=== PATIENT | female | born 1970 | race Caucasian/White ===

== ENCOUNTER 2016-07-30 16:15 | Emergency (ER) | payer OTHER ==
[~2016-07-30] VITALS: Ht 162.6 cm; Wt 70.8 kg
[~2016-07-30 16:15] MED LIST: ALBUAER19 INH; ASPI81TA28 PO; CYCL10TA6 PO; HYDR-5688 PO; LSN40 PO; MULT-513 PO; ONDA4TAB10 SL; PRED-301 PO; PROM12.56 PO
[2016-07-30 16:24] VITALS: Ht 162.6 cm; Wt 70.8 kg
[2016-07-30] MEDS ORDERED: DiphenhydrAMINE HCL 50 MG/ML VIAL IV STA (17:02)
[2016-07-30] MEDS ORDERED: KETOROLAC TROMETHAMINE 30 MG/ML VIAL IV STA (17:02)
[2016-07-30] MEDS ORDERED: PROCHLORPERAZINE 5 MG/ML 2 ML VIAL IV STA (17:02)
--- NOTE | 2016-07-30 17:12 | EMERGENCY ROOM VISIT NOTE ---
History Report prepared by Debra: Marlene Frazier Under the Supervision of: Dr. Stephen Drake M.D. First contact with patient: 16:56 Chief Complaint: HEADACHE Stated Complaint: MIGRAINE W/BLURRED VISION, NAUSEA, AND STIFF NECK History of Present Illness The patient is a 46 year old female who presents to the Emergency Room with complaints of a constant headache since last night. The patient has a history of migraine headaches and states that she gets tension headaches almost daily. She started experiencing neck stiffness about a week ago. Last night she developed a headache that feels like her typical migraine headache. She notes pressure at her temples bilaterally. The patient is also experiencing blurred vision and nausea. She rates her current pain as an 8/10 in severity. She has been unable to sleep due to her symptoms. She tried taking Percocet and Midol for her symptoms without any relief. Typically she takes Flexeril at bedtime, but it did not help to alleviate this particular headache. Recently she was on prednisone and that seemed to help her tension headaches but her PCP took her off of it due to weight gain. Source of History: patient Onset: last night Position: head Symptom Intensity: 8/10 Quality: pressure Timing: constant Associated Symptoms: + nausea, + neck pain Note: Pt notes blurred vision. Review of Systems All systems have been listed, reviewed, and are negative other than those previously mentioned. Please see Additional Medical History Sheet. Past Medical & Surgical Medical Problems: (1) Asthma (2) Bronchitis (3) Gastrointestinal infection (4) Lupus (5) Migraines (6) PNA (pneumonia) Surgical Problems: (1) Fistula Family History FH: cancer Heart disease Social History Smoking Status: Never Smoker Alcohol Use: occasionally Drug Use: none Marital Status: Housing Status: lives with family Occupation Status: employed Current/Historical Medications Scheduled Aspirin (Aspirin Ec), 81 MG PO DAILY Cyclobenzaprine Hcl (Flexeril), 20 MG PO HS Hydroxychloroquine Sulfate (Hydroxychloroquine Sulfat), 200 MG PO HS Levothyroxine Sodium (Levothyroxine Sodium), 75 MCG PO DAILY Lisinopril (Zestril), 20 MG PO DAILY Multivitamins/Minerals (Mvi With Minerals), 1 TAB PO DAILY Mycophenolate Mofetil (Mycophenolate Mofetil), 1,000 MG PO BID Omeprazole (Prilosec), 20 MG PO BID Prednisone (Prednisone), 5 MG PO DAILY Scheduled PRN Albuterol Hfa (Ventolin Hfa), 2 PUFFS INH QID PRN for SOB/Wheezing Ondasetron Odt (Zofran Odt), 4 MG SL Q6H PRN for Nausea Oxycodone/Acetaminophen 5MG/325MG (Percocet 5MG/325MG), 1 TABLET PO Q4H PRN for Severe Pain Promethazine Hcl (Phenergan), 12.5 MG PO Q6H PRN for Nausea Ranitidine HCl (Ranitidine HCl), 150 MG PO BID PRN for Heartburn Allergies Coded Allergies: Molds & Smuts (Verified Allergy, Intermediate, allergy, 10/21/15) Latex1 -Allergic Contact Dermititis (Verified Allergy, Mild, `ALSO VINYL- BLISTERS, 10/21/15) Chocolate (Verified Allergy, Unknown, migraines, 10/21/15) Mushroom (Verified Adverse Reaction, Intermediate, n/v, 10/21/15) NSAIDs (Verified Adverse Reaction, Unknown, NO ASA,IBUPROFEN,NAPROXEN, TORADOL PER DR MATTHEWS 12/22/09, 10/21/15) Physical Exam Vital Signs Date Time Temp Pulse Resp B/P Pulse Ox O2 Delivery O2 Flow Rate FiO2 07/30/16 19:18 36.5 75 18 129/81 97 07/30/16 16:24 36.5 75 18 129/81 97 Room Air Physical Exam GENERAL: Patient awake, alert, oriented x 3. Patient follows commands. Patient does not appear toxic. Patient is adequately hydrated and well- nourished. SKIN: No erythema, pallor, cyanosis or rash HEENT: Normal head, pupils equal, reactive to light and accommodation. Right ear normal, scar of left TM. Oral cavity and posterior pharynx appear normal. Neck: Without adenopathy, no neck vein distention. Patient has slight tenderness over the superior aspect of the trapezius bilaterally. LUNGS: Clear to auscultation. No wheezes, no rales, no rhonchi. HEART: No murmurs. No gallops. No rubs ABDOMEN: No masses, no rebound, no hepatomegaly or splenomegaly. EXTREMITIES: No signs of trauma. No pedal or pretibial edema. No calf or thigh tenderness. NEUROLOGIC: Cranial nerves II-XII within normal limits. No gross motor sensory function deficits. Medical Decision & Procedures Medications Administered Medications (Trade) Dose Ordered Sig/Tayler Route Start Time Stop Time Status Last Admin Dose Admin Sodium Chloride (Nss 1000ml) 1,000 ml @ 1,000 mls/hr Q1H ONCE IV 07/30/16 17:15 07/30/16 18:14 DC 07/30/16 17:54 1,000 MLS/HR Ketorolac Tromethamine (Toradol Inj) 30 mg NOW STAT IV 07/30/16 17:02 07/30/16 17:04 DC 07/30/16 17:54 30 MG Diphenhydramine HCl (Benadryl Inj) 25 mg NOW STAT IV 07/30/16 17:02 07/30/16 17:04 DC 07/30/16 17:53 25 MG Prochlorperazine Edisylate (Compazine Inj) 10 mg NOW STAT IV 07/30/16 17:02 07/30/16 17:04 DC 07/30/16 17:54 10 MG ED Course 165: Past medical records reviewed. The patient was evaluated in room A2. A complete history and physical examination was performed. 1702: Compazine 10 mg IV, Benadryl 25 mg IV, Toradol 30 mg IV 1715: NSS 1000 ml @ 1000 mls/hr IV 1814: I reevaluated the patient. She has had some improvement and rates her current pain as a 5/10 in severity. She is experiencing a little bit of akathisia at this time. 1850: I reassessed the patient at this time. She is feeling better and resting comfortably. I discussed the results and treatment plan with the patient. I answered all pertaining questions that she had. She expressed understanding and verbalized agreement. The patient will be discharged home. Medical Decision Differential diagnoses includes migraine headache, tension headache, sinus headache, meningitis, encephalitis. Medication Reconciliation: I attest that I have personally reviewed the patient' s current medication list. Blood pressure Screening: Patient was found to have normal blood pressure on screening and does not require follow up. The patient is here with this tension headache. She was given above medications with almost complete relief. The patient would like to go home and get sleep which I have encouraged. The patient has no evidence of encephalitis , meningitis or other significant neurologic pathology. Impression Primary Impression: Tension headache Scribe Attestation The scribe's documentation has been prepared under my direction and personally reviewed by me in its entirety. I confirm that the note above accurately reflects all work, treatment, procedures, and medical decision making performed by me. Departure Information Dispostion Home / Self-Care Referrals Kiki Ferraro D.O. (PCP) Forms HOME CARE DOCUMENTATION FORM, IMPORTANT VISIT INFORMATION Patient Instructions My [facility] Additional Instructions Continue all of your current medications as prescribed. Follow-up with your family physician.
[2016-07-30] MEDS ORDERED: SODIUM CHLORIDE 0.9% 1000ML 1,000 ML IV ONE (17:15)
[2016-07-30] MEDS ORDERED: LISI-725 PO (17:27)
[2016-07-30 19:18] VITALS: BP 129/81; PULSE 75; TEMP 36.5; O2SAT 97
[2016-12-04] MEDS ORDERED: MYCO500T5 PO (15:56)
== END 2016-07-30 19:19 | disposition home or self-care (01) ==
LOC: C.EDB 16:17 → C.EDA 19:19
DX: G44.209 Tension-type headache, unspecified, not intractable (principal); J45.909 Unspecified asthma, uncomplicated; L88 Pyoderma gangrenosum; Z79.82 Long term (current) use of aspirin

== ENCOUNTER 2016-09-25 10:26 | Emergency (ER) | payer OTHER ==
[~2016-09-25] VITALS: Ht 162.6 cm; Wt 66.8 kg
[~2016-09-25 10:26] MED LIST changes: -ALBUAER19 INH; -HYDR-5688 PO; +LISI-725 PO; -LSN40 PO
[2016-09-25 10:29] VITALS: TEMP 36.3; Ht 162.6 cm; Wt 66.8 kg
[2016-09-25] MEDS ORDERED: KETOROLAC TROMETHAMINE 30 MG/ML VIAL IV STA (11:17)
[2016-09-25] MEDS ORDERED: DiphenhydrAMINE HCL 50 MG/ML VIAL IV STA (11:17)
[2016-09-25] MEDS ORDERED: SODIUM CHLORIDE 0.9% 1000ML 2,000 ML IV STA (11:17)
[2016-09-25] MEDS ORDERED: METOCLOPRAMIDE HCL INJ 5 MG/ML 2 ML VIAL IM STA (11:17)
[2016-09-25] MEDS ORDERED: METOCLOPRAMIDE HCL INJ 5 MG/ML 2 ML VIAL IV STA (11:23)
--- NOTE | 2016-09-25 11:55 | EMERGENCY ROOM VISIT NOTE ---
History Report prepared by Debra: Marlene Frazier Under the Supervision of: Dr. Parminder Oliva M.D. First contact with patient: 10:52 Chief Complaint: HEADACHE Stated Complaint: MIGRAINE, WEAKNESS History of Present Illness The patient is a 46 year old female who presents to the Emergency Room with complaints of a worsening headache since yesterday morning. She states that her headache began yesterday morning and gradually worsened throughout the day. It has been constant since around dinner time last night. Her pain is located in the front of her head on the left side. She rates her pain as a 9/10 in severity. She also reports heaviness in her extremities and states, "It feels like I have lead weights on my arms and legs." The patient is complaining of nausea and photophobia. She states that she is having trouble reading with her glasses. She tried taking a Vicodin for her symptoms and states that it did not help. The patient has a history of migraine headaches. She states that her symptoms with this headache are atypical because her headaches usually come on suddenly all at once instead of gradually worsening. The patient denies fevers, chills, dizziness, cough, congestion, vomiting, urinary symptoms. She is on medications for lupus and fibromyalgia. She has chronic pains but denies any new neck pain, back pain, or chest pain. She has been eating and drinking normally. Source of History: patient Onset: yesterday morning Position: head Symptom Intensity: 9/10 Timing: worsening Modifying Factors (Worsening): other (light) Associated Symptoms: + nausea, No fevers, No chills, No cough, No neck pain , No chest pain, No vomiting, No back pain, No urinary symptoms Note: Pt notes heaviness in extremities and some visual changes. Review of Systems See HPI for pertinent positives and negatives. A total of ten systems were reviewed and were otherwise negative. Past Medical & Surgical Medical Problems: (1) Asthma (2) Bronchitis (3) Gastrointestinal infection (4) Lupus (5) Migraines (6) PNA (pneumonia) Surgical Problems: (1) Fistula Family History FH: cancer Heart disease Social History Smoking Status: Never Smoker Alcohol Use: occasionally Drug Use: none Marital Status: Housing Status: lives with family Occupation Status: employed Current/Historical Medications Scheduled Aspirin (Aspirin Ec), 81 MG PO DAILY Cyclobenzaprine Hcl (Flexeril), 20 MG PO HS Hydroxychloroquine Sulfate (Hydroxychloroquine Sulfat), 200 MG PO HS Levothyroxine Sodium (Levothyroxine Sodium), 75 MCG PO DAILY Lisinopril (Zestril), 20 MG PO DAILY Multivitamins/Minerals (Mvi With Minerals), 1 TAB PO DAILY Mycophenolate Mofetil (Mycophenolate Mofetil), 1,000 MG PO BID Omeprazole (Prilosec), 20 MG PO BID Prednisone (Prednisone), 5 MG PO DAILY Scheduled PRN Albuterol Hfa (Ventolin Hfa), 2 PUFFS INH QID PRN for SOB/Wheezing Ondasetron Odt (Zofran Odt), 4 MG SL Q6H PRN for Nausea Oxycodone/Acetaminophen 5MG/325MG (Percocet 5MG/325MG), 1 TABLET PO Q4H PRN for Severe Pain Promethazine Hcl (Phenergan), 12.5 MG PO Q6H PRN for Nausea Ranitidine HCl (Ranitidine HCl), 150 MG PO BID PRN for Heartburn Allergies Coded Allergies: Molds & Smuts (Verified Allergy, Intermediate, allergy, 09/25/16) Latex1 -Allergic Contact Dermititis (Verified Allergy, Mild, `ALSO VINYL- BLISTERS, 09/25/16) Chocolate (Verified Allergy, Unknown, migraines, 09/25/16) Mushroom (Verified Adverse Reaction, Intermediate, n/v, 09/25/16) NSAIDs (Verified Adverse Reaction, Unknown, NO ASA,IBUPROFEN,NAPROXEN, TORADOL PER DR MATTHEWS 12/22/09, 09/25/16) Physical Exam Vital Signs Date Time Temp Pulse Resp B/P (MAP) Pulse Ox O2 Delivery O2 Flow Rate FiO2 09/25/16 13:44 95 18 136/70 100 Room Air 09/25/16 12:09 95 18 139/71 100 Room Air 09/25/16 11:36 89 20 161/104 99 Room Air 09/25/16 10:29 36.3 87 18 132/76 100 Room Air Physical Exam GENERAL: Awake, alert, well-appearing, in no distress HENT: Normocephalic, atraumatic. Oropharynx unremarkable. Dry mucous membranes. EYES: Normal conjunctiva. Sclera non-icteric. NECK: Supple. No nuchal rigidity. FROM. No JVD. RESPIRATORY: Clear to auscultation. CARDIAC: Regular rate, normal rhythm. Extremities warm and well perfused. Pulses equal. ABDOMEN: Soft, non-distended. No tenderness to palpation. No rebound or guarding. No masses. RECTAL: Deferred. MUSCULOSKELETAL: Chest examination reveals no tenderness. The back is symmetrical on inspection without obvious abnormality. There is no CVA tenderness to palpation. No joint edema. LOWER EXTREMITIES: Calves are equal size bilaterally and non-tender. No edema. No discoloration. NEURO: Normal sensorium. No sensory or motor deficits noted. SKIN: No rash or jaundice noted. Medical Decision & Procedures Medications Administered Medications (Trade) Dose Ordered Sig/Tayler Route Start Time Stop Time Status Last Admin Dose Admin Ketorolac Tromethamine (Toradol Inj) 30 mg NOW STAT IV 09/25/16 11:17 09/25/16 11:20 DC 09/25/16 11:33 30 MG Diphenhydramine HCl (Benadryl Inj) 25 mg NOW STAT IV 09/25/16 11:17 09/25/16 11:20 DC 09/25/16 11:34 25 MG Sodium Chloride 2,000 ml @ 999 mls/hr Q2H1M STAT IV 09/25/16 11:17 09/25/16 13:17 DC 09/25/16 11:34 999 MLS/HR Metoclopramide HCl (Reglan Inj) 10 mg NOW STAT IV 09/25/16 11:23 09/25/16 11:26 DC 09/25/16 11:33 10 MG Lorazepam (Ativan Inj) 1 mg NOW STAT IV 09/25/16 12:29 09/25/16 12:31 DC 09/25/16 12:46 1 MG ED Course 1052: The patient was evaluated in room B11B. A complete history and physical exam was performed. 1117: NSS 2000 ml @ 999 mls/hr IV, Benadryl 25 mg IV, Toradol 30 mg IV 1123: Reglan 10 mg IV 1227: I reassessed the patient and her symptoms have improved but she is still complaining of a headache. 1229: Lorazepam 1 mg IV 1336: I reassessed the patient at this time. She is complaining of pain in her head that she describes as pressure and rates a s 4/10 in severity. She would prefer to go home and rest there. I discussed the results and treatment plan with the patient. I answered all pertaining questions that she had. She expressed understanding and verbalized agreement. The patient will be discharged home and was encouraged to follow-up with her PCP. Medical Decision I reviewed the patient's past medical history, medications, and the nursing notes as described above. Differential diagnoses includes migraine, dehydration, fibromyalgia. Patient with pmhx of migraines and fibromyalgia presents to the ED with BAUTISTA and generalized weakness per HPI. Arrives to ED uncomfortable but in NAD. AFVSS. On exam clinically dry, otherwise neuro intact. Given IVF, reglan, toradol, benadryl, ativan with improvement in sx and only feeling mild pressure from BAUTISTA. Reports that sometimes it takes time for migraine to completely resolve. Patient feeling OK and preferred to go home and will f/u with pcp. Medication Reconcilliation Current Medication List: was personally reviewed by me Blood Pressure Screening Patient's blood pressure: Elevated blood pressure Blood pressure disposition: Elevated BP felt to be situational Impression Primary Impression: Migraine Scribe Attestation The scribe's documentation has been prepared under my direction and personally reviewed by me in its entirety. I confirm that the note above accurately reflects all work, treatment, procedures, and medical decision making performed by me. Departure Information Dispostion Home / Self-Care Referrals Kiki Ferraro D.O. (PCP) Forms HOME CARE DOCUMENTATION FORM, IMPORTANT VISIT INFORMATION Patient Instructions ED Headache Migraine, My [facility] Additional Instructions Please follow up with your primary care physician in the next 1-3 days. Your exam did not show signs of an emergent condition. Return to the emergency department for worsening symptoms as described in the accompanying instructions. Problem Qualifiers Primary Impression: Migraine Migraine type: unspecified Status migrainosus presence: without status migrainosus Intractability: not intractable Qualified Codes: G43.909 - Migraine, unspecified, not intractable, without status migrainosus
[2016-09-25] MEDS ORDERED: LORAZEPAM 2 MG/ML 1 ML VIAL IV STA (12:29)
[2016-09-25 13:44] VITALS: BP 136/70; PULSE 95; O2SAT 100
[2016-12-04] MEDS ORDERED: MYCO500T5 PO (15:56)
== END 2016-09-25 14:19 | disposition home or self-care (01) ==
LOC: C.EDB 10:28
DX: G43.909 Migraine, unspecified, not intractable, without status migrainosus (principal); J45.909 Unspecified asthma, uncomplicated; M32.9 Systemic lupus erythematosus, unspecified; Z87.01 Personal history of pneumonia (recurrent); Z80.9 Family history of malignant neoplasm, unspecified; Z79.82 Long term (current) use of aspirin; Z79.899 Other long term (current) drug therapy

== ENCOUNTER 2016-12-04 16:03 | Emergency (ER) | payer OTHER ==
[~2016-12-04] VITALS: Ht 162.6 cm; Wt 63.9 kg
[~2016-12-04 16:03] MED LIST changes: +MYCO500T5 PO
[2016-12-04 16:20] VITALS: Ht 162.6 cm; Wt 63.9 kg
[2016-12-04] MEDS ORDERED: OXYC-57 PO (17:27)
[2016-12-04] MEDS ORDERED: VNTHFA/IN INH (17:28)
[2016-12-04] MEDS ORDERED: ACETAMINOPHEN 500 MG TAB PO STA (17:35)
[2016-12-04] MEDS ORDERED: HYDROCORTISONE SOD SUCCINATE 100 MG/2 ML VIAL IV STA (17:35)
[2016-12-04] MEDS ORDERED: SODIUM CHLORIDE 0.9% 1000ML 1,000 ML IV STA (17:38)
[2016-12-04] MEDS ORDERED: ALBUT/IPRATROP 3MG/0.5MG NEB 3 ML VIAL INH STA (17:38)
--- NOTE | 2016-12-04 17:41 | EMERGENCY ROOM VISIT NOTE ---
History Report prepared by Debra: Deana Ball Under the Supervision of: Dr. Cezar Mills M.D. First contact with patient: 17:28 Chief Complaint: OTHER COMPLAINT Stated Complaint: MUSCLE AND JOINT PAIN, CONGESTION History of Present Illness The patient is a 46 year old female who presents to the Emergency Room with complaints of persistent body aches starting DIE BAKER. The patient has a history of lupus. Two days ago, she started having congestion. Since then, she has developed right back pain which she feels is her kidney. She also has muscle and bone pain all over. She states that even her skin feels sensitive. She is also feeling very cold and feels like she cannot get warm. She took some Mucinex to no relief. The patient was taken off of steroids around 4 months ago to try and facilitate weight loss. She had been on steroids since 2009 before then. Source of History: patient Onset: DIE BAKER Position: other (global) Quality: other (body aches) Timing: other (persistent) Associated Symptoms: + chills, + back pain Note: Pt reports congestion. Review of Systems See HPI for pertinent positives & negatives. A total of 10 systems reviewed and were otherwise negative. Past Medical & Surgical Medical Problems: (1) Asthma (2) Bronchitis (3) Gastrointestinal infection (4) Lupus (5) Migraines (6) PNA (pneumonia) Surgical Problems: (1) Fistula Family History FH: cancer Heart disease Social History Smoking Status: Never Smoker Alcohol Use: occasionally Drug Use: none Marital Status: Housing Status: lives with family Occupation Status: employed Current/Historical Medications Scheduled Cephalexin Monohydrate (Keflex), 1 CAP PO BID Cyclobenzaprine HCl (Cyclobenzaprine HCl), 20 MG PO HS Hydroxychloroquine Sulfate (Hydroxychloroquine Sulfat), 200 MG PO HS Levothyroxine Sodium (Levothyroxine Sodium), 75 MCG PO DAILY Lisinopril (Lisinopril), 20 MG PO DAILY Mycophenolate Mofetil (Mycophenolate Mofetil), 1,000 MG PO BID Omeprazole (Prilosec), 20 MG PO BID Prednisone (Prednisone Tab), 0 PO DAILY Scheduled PRN Albuterol Hfa (Ventolin Hfa), 2 PUFFS INH QID PRN for SOB/Wheezing Hydrocodone W/ Homatropine (Hycodan 5/1.5MG 5 Ml), 5 ML PO HS PRN for Cough Oxycodone/Acetaminophen 5MG/325MG (Percocet 5MG/325MG), 1 TABLET PO Q8 PRN for Moderate Pain Ranitidine HCl (Ranitidine HCl), 150 MG PO BID PRN for Heartburn Allergies Coded Allergies: Molds & Smuts (Verified Allergy, Intermediate, allergy, 09/25/16) Latex1 -Allergic Contact Dermititis (Verified Allergy, Mild, `ALSO VINYL- BLISTERS, 09/25/16) Chocolate (Verified Allergy, Unknown, migraines, 09/25/16) Mushroom (Verified Adverse Reaction, Intermediate, n/v, 09/25/16) NSAIDs (Verified Adverse Reaction, Unknown, NO ASA,IBUPROFEN,NAPROXEN, TORADOL PER DR MATTHEWS 12/22/09, 09/25/16) Physical Exam Vital Signs Date Time Temp Pulse Resp B/P (MAP) Pulse Ox O2 Delivery O2 Flow Rate FiO2 12/04/16 20:42 88 16 145/76 98 12/04/16 20:17 36.7 82 20 124/76 99 Room Air 12/04/16 18:20 85 20 134/76 99 Room Air 12/04/16 16:20 37.5 110 20 136/71 99 Room Air Physical Exam GENERAL: Patient is a healthy-appearing well-nourished female HEAD: Normocephalic atraumatic EYES: Ocular movements intact pupils equal and react to light OROPHARYNX mucous membranes are moist no exudates present no erythema or edema present NECK: Supple no nuchal rigidity CHEST: Good equal expansion LUNGS: Clear and equal to auscultation CARDIAC: Normal S1 and S2 ABDOMEN: Soft nontender no guarding BACK: Left CVA tenderness EXTREMITIES: No pain upon palpation normal muscle strength in all groups no clubbing cyanosis or edema NEURO: Patient is following commands and answering questions appropriately. Alert and oriented x3 Cranial Nerves 2-12 grossly intact Medical Decision & Procedures ER Provider Diagnostic Interpretation: X-ray results as stated below per interpretation by me and the radiologist. Radiology results as stated below per my review and radiologist interpretation: CHEST ONE VIEW PORTABLE HISTORY: 46 years-old Female Pt c/o SOB acute shortness of breath. COMPARISON: Portal chest radiograph 09/21/2015 TECHNIQUE: Portable upright AP view of the chest FINDINGS: Cardiac silhouette is mildly enlarged. There is atherosclerosis of the aorta. There is no pneumothorax, pleural effusion, focal airspace consolidation or overt pulmonary edema. Bones about the chest are grossly intact. IMPRESSION: No acute cardiopulmonary process. The above report was generated using voice recognition software. It may contain grammatical, syntax or spelling errors. Electronically signed by: Jose Taveras M.D. 12/04/2016 6:34 PM Dictated Date/Time: 12/04/2016 6:33 PM KUB HISTORY: Acute left flank pain Pt c/o left CVA tenderness COMPARISON: Chest radiograph of same day, abdominal series radiographs 04/14/2010 FINDINGS: The bowel gas pattern is non-obstructive. There is no organomegaly. No renal calculi. No ureteral calculi. No pneumoperitoneum or pneumatosis. No fracture. IMPRESSION: 1. Nonobstructive bowel gas pattern without pneumoperitoneum identified. 2. No renal or ureteral stones. Electronically signed by: Jose Taveras M.D. 12/04/2016 6:29 PM Dictated Date/Time: 12/04/2016 6:28 PM (RENAL)RETROPERITON COMP HISTORY: 46 years-old Female Pt c/o left sided CVA acute left-sided flank pain. COMPARISON: Right upper quadrant ultrasound 04/08/2010, CT abdomen and pelvis 04/08/2010 TECHNIQUE: Multiple real-time sonographic images of the kidneys and urinary bladder were obtained assessing grayscale appearance and color flow. FINDINGS: The right kidney measures 9.0 x 3.5 x 4.1 cm and is unremarkable without renal calculi, hydronephrosis or focal renal mass. Cortical medullary differentiation is preserved. The left kidney measures 9.2 x 4.4 x 4.2 cm and is also unremarkable without renal calculi, hydronephrosis or focal renal mass. Cortical medullary differentiation is preserved. Urine bladder is not well distended. Bilateral ureteral jets identified. Patient was somewhat uncooperative during the study. IMPRESSION: 1. Unremarkable sonographic appearance of the kidneys without renal calculi or hydronephrosis. 2. Partially collapsed urinary bladder. The above report was generated using voice recognition software. It may contain grammatical, syntax or spelling errors. Electronically signed by: Jose Taveras M.D. 12/04/2016 7:05 PM Dictated Date/Time: 12/04/2016 7:02 PM Laboratory Results 12/04/16 17:50 Red Blood Count 5.16, Mean Corpuscular Volume 80.8, Mean Corpuscular Hemoglobin 25.8, Mean Corpuscular Hemoglobin Concent 31.9, Mean Platelet Volume 9.9, Neutrophils (%) (Auto) 80.3, Lymphocytes (%) (Auto) 11.1, Monocytes (%) (Auto) 6.5, Eosinophils (%) (Auto) 1.5, Basophils (%) (Auto) 0.4, Neutrophils # (Auto) 8.84, Lymphocytes # (Auto) 1.22, Monocytes # (Auto) 0.71, Eosinophils # (Auto) 0.16, Basophils # (Auto) 0.04 12/04/16 17:50 Test 12/04/16 17:50 12/04/16 18:24 White Blood Count 10.99 K/uL (4.8-10.8) Red Blood Count 5.16 M/uL (4.2-5.4) Hemoglobin 13.3 g/dL (12.0-16.0) Hematocrit 41.7 % (37-47) Mean Corpuscular Volume 80.8 fL (80-100) Mean Corpuscular Hemoglobin 25.8 pg (25-34) Mean Corpuscular Hemoglobin Concent 31.9 g/dl (32-36) Platelet Count 254 K/uL (130-400) Mean Platelet Volume 9.9 fL (7.4-10.4) Neutrophils (%) (Auto) 80.3 % Lymphocytes (%) (Auto) 11.1 % Monocytes (%) (Auto) 6.5 % Eosinophils (%) (Auto) 1.5 % Basophils (%) (Auto) 0.4 % Neutrophils # (Auto) 8.84 K/uL (1.4-6.5) Lymphocytes # (Auto) 1.22 K/uL (1.2-3.4) Monocytes # (Auto) 0.71 K/uL (0.11-0.59) Eosinophils # (Auto) 0.16 K/uL (0-0.5) Basophils # (Auto) 0.04 K/uL (0-0.2) RDW Standard Deviation 45.2 fL (36.4-46.3) RDW Coefficient of Variation 15.5 % (11.5-14.5) Immature Granulocyte % (Auto) 0.2 % Immature Granulocyte # (Auto) 0.02 K/uL (0.00-0.02) Urine Color YELLOW Urine Appearance CLEAR (CLEAR) Urine pH 5.5 (4.5-7.5) Urine Specific [place] 1.013 (1.000-1.030) Urine Protein NEG (NEG) Urine Glucose (UA) NEG (NEG) Urine Ketones NEG (NEG) Urine Occult Blood 1+ (NEG) Urine Nitrite NEG (NEG) Urine Bilirubin NEG (NEG) Urine Urobilinogen NEG (NEG) Urine Leukocyte Esterase TRACE (NEG) Urine WBC (Auto) 5-10 /hpf (0-5) Urine RBC (Auto) 5-10 /hpf (0-4) Urine Hyaline Casts (Auto) 1-5 /lpf (0-5) Urine Epithelial Cells (Auto) >30 /lpf (0-5) Urine Bacteria (Auto) NEG (NEG) Anion Gap 11.0 mmol/L (3-11) Est Creatinine Clear Calc Drug Dose 64.6 ml/min Estimated GFR () 83.8 Estimated GFR (Non- 72.3 BUN/Creatinine Ratio 2.9 (10-20) Calcium Level 8.9 mg/dl (8.5-10.1) Total Bilirubin 0.6 mg/dl (0.2-1) Direct Bilirubin mg/dl (0-0.2) Aspartate Amino Transf (AST/SGOT) U/L (15-37) Alanine Aminotransferase (ALT/SGPT) 20 U/L (12-78) Alkaline Phosphatase 112 U/L (45-117) Total Protein 8.2 gm/dl (6.4-8.2) Albumin 4.2 gm/dl (3.4-5.0) Influenza Type A (RT-PCR) Neg for Influ A (NEG) Influenza Type A Antigen Neg for Influ A (NEG) Influenza Type B Antigen Neg for Influ B (NEG) Influenza Type B (RT-PCR) Neg for Influ B (NEG) Labs reviewed by ED physician. Medications Administered Medications (Trade) Dose Ordered Sig/Tayler Route Start Time Stop Time Status Last Admin Dose Admin Acetaminophen (Tylenol Tab) 1,000 mg NOW STAT PO 12/04/16 17:35 12/04/16 17:38 DC 12/04/16 17:35 1,000 MG Hydrocortisone Sodium Succinate (Solu-Cortef IV) 100 mg NOW STAT IV 12/04/16 17:35 12/04/16 17:38 DC 12/04/16 17:35 100 MG Sodium Chloride 1,000 ml @ 999 mls/hr Q1H1M STAT IV 12/04/16 17:38 12/04/16 18:38 DC 12/04/16 17:38 999 MLS/HR Albuterol/ Ipratropium (Duoneb) 3 ml NOW STAT INH 12/04/16 17:38 12/04/16 17:40 DC 12/04/16 17:38 3 ML Albuterol (Ventolin Hfa Inhaler) 2 puffs NOW STAT INH 12/04/16 19:19 12/04/16 19:21 DC 12/04/16 19:19 2 PUFFS Ceftriaxone Sodium (Rocephin Inj) 1 gm NOW STAT IV 12/04/16 19:19 12/04/16 19:21 DC 12/04/16 19:19 1 GM Hydrocodone Bit/ Homatropine Methylb (Hycodan Syrup) 5 ml NOW STAT PO 12/04/16 19:26 12/04/16 19:27 DC 12/04/16 19:26 5 ML ED Course 1730: Past medical records reviewed. The patient was evaluated in room B8. A complete history and physical examination was performed. 1735: Solu-Cortef IV 100 mg IV, Acetaminophen 1000 mg PO. 8: Duoneb 3 ml INH, NSS 1000 ml @ 999 mls/hr IV. 1918: Rocephin Inj 1 gm IV, Albuterol 2 puffs INH. 1925: Upon reexamination the patient is resting comfortably. I discussed results and treatment plan with the patient. She verbalizes agreement and understanding. The patient is ready for discharge. 1925: Hycodan Syrup 5 ml PO. Medical Decision Differential diagnosis: Etiologies such as viral syndrome, otitis, pharyngitis, pneumonia, influenza, meningitis, urinary tract infection, sepsis, bacteremia, as well as others were entertained. This is a 46-year-old female who presents emergency department complaining of generalized aches and pains. I will note that the patient is afebrile here in the emergency department. She recently stopped prednisone and for this reason the patient was given Solu-Cortef here in the emergency department. The patient was given Tylenol here in the emergency department. She doesn't slight elevation in her white blood cell count and does appear to have a urinary tract infection. For this reason the patient was started on Rocephin. She has no evidence of meningitis or encephalitis on examination and I do feel that the patient can be safely discharged home. Patient will follow-up with her primary care physician and was in agreement with the treatment plan. Medication Reconcilliation Current Medication List: was personally reviewed by me Blood Pressure Screening Patient's blood pressure: Normal blood pressure Blood pressure disposition: Did not require urgent referral Impression Primary Impression: Urinary tract infection Scribe Attestation The scribe's documentation has been prepared under my direction and personally reviewed by me in its entirety. I confirm that the note above accurately reflects all work, treatment, procedures, and medical decision making performed by me. Departure Information Dispostion Home / Self-Care Prescriptions Hydrocodone W/ Homatropine (HYCODAN 5/1.5MG 5 ML) 1 Syp Syp 5 ML PO HS Y for Cough, #120 ML Prov: Cezar Mills MD 12/04/16 Cephalexin Monohydrate (Keflex) 500 Mg Cap 1 CAP PO BID for 10 Days, #20 CAP Prov: Cezar Mills MD 12/04/16 Prednisone (Prednisone Tab) 20 Mg Tab 0 PO DAILY, #7 TAB 2 TABS DAILY FOR 2 DAYS, THEN 1 TAB DAILY FOR 2 DAYS, THEN 1/2 TAB DAILY FOR 2 DAYS. Prov: Cezar Mills MD 12/04/16 Referrals No Doctor, Assigned (PCP) Forms HOME CARE DOCUMENTATION FORM, IMPORTANT VISIT INFORMATION, WORK / SCHOOL INSTRUCTIONS Patient Instructions ED UTI Cystitis Female, My [facility] Additional Instructions Take 1000 mg Tylenol every 6 hours You received narcotic or benzodiazepene medication while in the emergency room today. This is an addictive medication that may cause drowziness as well as constipation. Do not drive, operate heavy machinery, or drink alcohol under the influence of this medication. Take 1000 mg Tylenol every 6 hours Take Hycodan for breakthrough pain Culture results are usually available in approx 48 hours You have been examined and treated today on an emergency basis only. This is not a substitute for, or an effort to provide, complete comprehensive medical care. It is impossible to recognize and treat all injuries or illnesses in a single emergency department visit. It is therefore important that you follow up closely with your PCP. Call as soon as possible for an appointment. Thank you for your time and consideration. I look forward to speaking with you again soon. Please don't hesitate to call us if you have any questions. Problem Qualifiers Primary Impression: Urinary tract infection Urinary tract infection type: acute cystitis Hematuria presence: without hematuria Qualified Codes: N30.00 - Acute cystitis without hematuria
[2016-12-04] MEDS ORDERED: LSN40 PO (18:15)
[2016-12-04] MEDS ORDERED: CYCL10TA7 PO (18:15)
[2016-12-04 18:22] LABS: BASO % 0.4 %; BASO ABS # 0.04 K/uL (0-0.2); COMPLETE YES; EOS % 1.5 %; HEMATOCRIT 41.7 % (37-47); IG% 0.2 %; LYMPH % 11.1 %; LYMPH ABS # 1.22 K/uL (1.2-3.4); MEAN CELL VOLUME 80.8 fL (80-100); MEAN CORPUSCULAR HEMOGLOBIN 25.8 pg (25-34); MEAN CORPUSCULAR HGB CONC 31.9 g/dl (32-36); MEAN PLATELET VOLUME 9.9 fL (7.4-10.4); MONO % 6.5 %; NEUT % 80.3 %; PLATELET COUNT 254 K/uL (130-400); RED BLOOD COUNT 5.16 M/uL (4.2-5.4); WHITE BLOOD COUNT 10.99 K/uL (4.8-10.8)
[2016-12-04 18:30] LABS: URINE APPEARANCE CLEAR (CLEAR); URINE BILIRUBIN NEG (NEG); URINE COLOR YELLOW; URINE EPITHELIAL CELL AUTO >30 /lpf (0-5); URINE NITRITE NEG (NEG); URINE PH 5.5 (4.5-7.5); URINE SPECIFIC GRAVITY 1.013 (1.000-1.030); UROBILINOGEN NEG (NEG)
--- NOTE | 2016-12-04 18:31 | DIAGNOSTIC IMAGING REPORT ---
KUB HISTORY: Acute left flank pain Pt c/o left CVA tenderness COMPARISON: Chest radiograph of same day, abdominal series radiographs 04/14/2010 FINDINGS: The bowel gas pattern is non-obstructive. There is no organomegaly. No renal calculi. No ureteral calculi. No pneumoperitoneum or pneumatosis. No fracture. IMPRESSION: 1. Nonobstructive bowel gas pattern without pneumoperitoneum identified. 2. No renal or ureteral stones. Electronically signed by: Jose Taveras M.D. 12/04/2016 6:29 PM Dictated Date/Time: 12/04/2016 6:28 PM
[2016-12-04 18:35] LABS: MANUAL MICROSCOPIC REQUIRED? NO; REVIEW REQ? NO
--- NOTE | 2016-12-04 18:35 | DIAGNOSTIC IMAGING REPORT ---
CHEST ONE VIEW PORTABLE HISTORY: 46 years-old Female Pt c/o SOB acute shortness of breath. COMPARISON: Portal chest radiograph 09/21/2015 TECHNIQUE: Portable upright AP view of the chest FINDINGS: Cardiac silhouette is mildly enlarged. There is atherosclerosis of the aorta. There is no pneumothorax, pleural effusion, focal airspace consolidation or overt pulmonary edema. Bones about the chest are grossly intact. IMPRESSION: No acute cardiopulmonary process. The above report was generated using voice recognition software. It may contain grammatical, syntax or spelling errors. Electronically signed by: Jose Taveras M.D. 12/04/2016 6:34 PM Dictated Date/Time: 12/04/2016 6:33 PM
[2016-12-04] MEDS ORDERED: RANI150T2 PO (18:48)
[2016-12-04 18:51] LABS: ALKALINE PHOSPHATASE 112 U/L (45-117); ALT/SGPT 20 U/L (12-78); BLOOD UREA NITROGEN 3 mg/dl (7-18); BUN/CREATININE RATIO 2.9 (10-20); CALCIUM 8.9 mg/dl (8.5-10.1); CARBON DIOXIDE 21 mmol/L (21-32); CHLORIDE 104 mmol/L (98-107); CREATININE 0.95 mg/dl (0.60-1.20); GLUCOSE 78 mg/dl (70-99); SODIUM 136 mmol/L (136-145)
--- NOTE | 2016-12-04 19:07 | DIAGNOSTIC IMAGING REPORT ---
(RENAL)RETROPERITON COMP HISTORY: 46 years-old Female Pt c/o left sided CVA acute left-sided flank pain. COMPARISON: Right upper quadrant ultrasound 04/08/2010, CT abdomen and pelvis 04/08/2010 TECHNIQUE: Multiple real-time sonographic images of the kidneys and urinary bladder were obtained assessing grayscale appearance and color flow. FINDINGS: The right kidney measures 9.0 x 3.5 x 4.1 cm and is unremarkable without renal calculi, hydronephrosis or focal renal mass. Cortical medullary differentiation is preserved. The left kidney measures 9.2 x 4.4 x 4.2 cm and is also unremarkable without renal calculi, hydronephrosis or focal renal mass. Cortical medullary differentiation is preserved. Urine bladder is not well distended. Bilateral ureteral jets identified. Patient was somewhat uncooperative during the study. IMPRESSION: 1. Unremarkable sonographic appearance of the kidneys without renal calculi or hydronephrosis. 2. Partially collapsed urinary bladder. The above report was generated using voice recognition software. It may contain grammatical, syntax or spelling errors. Electronically signed by: Jose Taveras M.D. 12/04/2016 7:05 PM Dictated Date/Time: 12/04/2016 7:02 PM
[2016-12-04] MEDS ORDERED: CEFTRIAXONE SOD INJ 1 GM ADDVIAL IV STA (19:19)
[2016-12-04] MEDS ORDERED: ALBUTEROL HFA 8 GM INHALER INH STA (19:19)
[2016-12-04] MEDS ORDERED: HYDROCODONE/HOMATROPINE SYRUP 5MG/1.5MG 5ML UDP PO STA (19:26)
[2016-12-04] MEDS ORDERED: PRED20TA2 PO (19:27)
[2016-12-04] MEDS ORDERED: CEPH500C PO (19:27)
[2016-12-04] MEDS ORDERED: HYDR5SYP11 PO (19:28)
[2016-12-04 20:07] LABS: INFLUENZA A PCR Neg for Influ A (NEG); INFLUENZA B PCR Neg for Influ B (NEG)
[2016-12-04 20:17] VITALS: TEMP 36.7
[2016-12-04 20:42] VITALS: BP 145/76; PULSE 88; O2SAT 98
[2016-12-04] MEDS ORDERED: PLQ200 PO (21:09)
[2016-12-04] MEDS ORDERED: LEVO75TA5 PO (21:09)
[2016-12-04] MEDS ORDERED: OMEP20CA9 PO (21:09)
== END 2016-12-04 20:43 | disposition home or self-care (01) ==
LOC: C.EDB 16:04
DX: N39.0 Urinary tract infection, site not specified (principal); J45.909 Unspecified asthma, uncomplicated; M32.9 Systemic lupus erythematosus, unspecified; Z87.01 Personal history of pneumonia (recurrent); Z79.899 Other long term (current) drug therapy

== ENCOUNTER 2016-12-13 07:11 | Emergency (ER) | payer OTHER ==
[~2016-12-13] VITALS: Ht 162.6 cm; Wt 64.2 kg
[~2016-12-13 07:11] MED LIST changes: -ASPI81TA28 PO; +CEPH500C PO; -CYCL10TA6 PO; +CYCL10TA7 PO; +HYDR5SYP11 PO; +LEVO75TA5 PO; -LISI-725 PO; +LSN40 PO; -MULT-513 PO; +OMEP20CA9 PO; -ONDA4TAB10 SL; +OXYC-57 PO; +PLQ200 PO; -PRED-301 PO; +PRED20TA2 PO; -PROM12.56 PO; +RANI150T2 PO; +VNTHFA/IN INH
[2016-12-13 07:16] VITALS: TEMP 36.7; Ht 162.6 cm; Wt 64.2 kg
[2016-12-13] MEDS ORDERED: DiphenhydrAMINE HCL 50 MG/ML VIAL IV STA (07:46)
[2016-12-13] MEDS ORDERED: SODIUM CHLORIDE 0.9% 1000ML 1,000 ML IV STA (07:46)
[2016-12-13] MEDS ORDERED: PROCHLORPERAZINE 5 MG/ML 2 ML VIAL IV STA (07:46)
[2016-12-13] MEDS ORDERED: DEXAMETHASONE SOD INJ 4 MG/ML VIAL IV STA (07:46)
--- NOTE | 2016-12-13 07:53 | EMERGENCY ROOM VISIT NOTE ---
ED Visit Note First contact with patient: 07:23 I have seen and examined this patient with Janae Faye and generally agree with the treatment plan as discussed. Problem List Medical Problems: (1) Asthma Status: Chronic (2) Bronchitis Status: Resolved (3) Gastrointestinal infection Status: Resolved (4) Lupus Status: Chronic (5) Migraines Status: Chronic (6) PNA (pneumonia) Status: Resolved Surgical Problems: (1) Fistula Status: Resolved Current/Historical Medications Scheduled Cephalexin Monohydrate (Keflex), 1 CAP PO BID Cyclobenzaprine HCl (Cyclobenzaprine HCl), 20 MG PO HS Hydroxychloroquine Sulfate (Hydroxychloroquine Sulfat), 200 MG PO HS Levothyroxine Sodium (Levothyroxine Sodium), 75 MCG PO DAILY Lisinopril (Lisinopril), 20 MG PO DAILY Mycophenolate Mofetil (Mycophenolate Mofetil), 1,000 MG PO BID Omeprazole (Prilosec), 20 MG PO BID Prednisone (Prednisone Tab), 0 PO DAILY Scheduled PRN Albuterol Hfa (Ventolin Hfa), 2 PUFFS INH QID PRN for SOB/Wheezing Hydrocodone W/ Homatropine (Hycodan 5/1.5MG 5 Ml), 5 ML PO HS PRN for Cough Oxycodone/Acetaminophen 5MG/325MG (Percocet 5MG/325MG), 1 TABLET PO Q8 PRN for Moderate Pain Ranitidine HCl (Ranitidine HCl), 150 MG PO BID PRN for Heartburn Allergies Coded Allergies: Molds & Smuts (Verified Allergy, Intermediate, allergy, 09/25/16) Latex1 -Allergic Contact Dermititis (Verified Allergy, Mild, `ALSO VINYL- BLISTERS, 09/25/16) Chocolate (Verified Allergy, Unknown, migraines, 09/25/16) Mushroom (Verified Adverse Reaction, Intermediate, n/v, 09/25/16) NSAIDs (Verified Adverse Reaction, Unknown, NO ASA,IBUPROFEN,NAPROXEN, TORADOL PER DR MATTHEWS 12/22/09, 09/25/16) Vital Signs Date Time Temp Pulse Resp B/P (MAP) Pulse Ox O2 Delivery O2 Flow Rate FiO2 12/13/16 07:16 36.7 85 20 118/68 100 Room Air Laboratory Results Test 12/13/16 07:46 Departure Information Referrals Kiki Ferraro D.O. (PCP) Patient Instructions [facility]
[2016-12-13 08:25] LABS: BASO % 0.4 %; BASO ABS # 0.04 K/uL (0-0.2); COMPLETE YES; HEMATOCRIT 37.4 % (37-47); IG% 0.6 %; LYMPH % 22.2 %; MEAN CELL VOLUME 81.3 fL (80-100); MEAN CORPUSCULAR HEMOGLOBIN 26.1 pg (25-34); MEAN CORPUSCULAR HGB CONC 32.1 g/dl (32-36); MEAN PLATELET VOLUME 8.5 fL (7.4-10.4); MONO % 7.8 %; PLATELET COUNT 375 K/uL (130-400); WHITE BLOOD COUNT 9.48 K/uL (4.8-10.8)
[2016-12-13 08:45] LABS: BUN/CREATININE RATIO 8.6 (10-20); CREATININE 0.81 mg/dl (0.60-1.20); POTASSIUM 3.7 mmol/L (3.5-5.1)
[2016-12-13] MEDS ORDERED: KETOROLAC TROMETHAMINE 30 MG/ML VIAL IV STA (08:54)
--- NOTE | 2016-12-13 09:50 | EMERGENCY ROOM VISIT NOTE ---
History First contact with patient: 07:23 Chief Complaint: HEAD PAIN Stated Complaint: SEVERE FACE AND HEAD PAIN History of Present Illness The patient is a 46 year old female who presents to the Emergency Room with complaints of a headache. The patient states that for the past one week, she has had a headache. She reports that the headache was initially located on the right side of her head, however 4 hours ago she began to have a headache on the left side of her head. She states that it is a burning and throbbing sensation and she rates the discomfort an 8/10. It is not the worst headache of her life. She reports some associated nausea. She denies any vision changes, numbness, weakness, blurred vision or slurred speech. She does report a past history of migraine headaches but feels this is slightly different. She denies any recent illnesses, fevers/chills or neck pain/stiffness. She has taken over- the-counter medications at home without relief. Review of Systems A complete 10 point review of systems was reviewed with the patient with pertinent positives and negatives as per history of present illness. All else were negative. Past Medical/Surgical History Medical Problems: (1) Asthma (2) Bronchitis (3) Gastrointestinal infection (4) Lupus (5) Migraines (6) PNA (pneumonia) Surgical Problems: (1) Fistula Family History FH: cancer Heart disease Social History Smoking Status: Never Smoker Alcohol Use: occasionally Drug Use: none Marital Status: Housing Status: lives with family Occupation Status: employed Current/Historical Medications Scheduled Cephalexin Monohydrate (Keflex), 1 CAP PO BID Cyclobenzaprine HCl (Cyclobenzaprine HCl), 20 MG PO HS Hydroxychloroquine Sulfate (Hydroxychloroquine Sulfat), 200 MG PO HS Levothyroxine Sodium (Levothyroxine Sodium), 75 MCG PO DAILY Lisinopril (Lisinopril), 20 MG PO DAILY Mycophenolate Mofetil (Mycophenolate Mofetil), 1,000 MG PO BID Omeprazole (Prilosec), 20 MG PO BID Scheduled PRN Albuterol Hfa (Ventolin Hfa), 2 PUFFS INH QID PRN for SOB/Wheezing Hydrocodone W/ Homatropine (Hycodan 5/1.5MG 5 Ml), 5 ML PO HS PRN for Cough Oxycodone/Acetaminophen 5MG/325MG (Percocet 5MG/325MG), 1 TABLET PO Q8 PRN for Moderate Pain Ranitidine HCl (Ranitidine HCl), 150 MG PO BID PRN for Heartburn Physical Exam Vital Signs Date Time Temp Pulse Resp B/P (MAP) Pulse Ox O2 Delivery O2 Flow Rate FiO2 12/13/16 09:59 88 16 131/76 100 12/13/16 09:33 88 16 131/76 100 Room Air 12/13/16 08:16 87 17 133/78 98 Room Air 12/13/16 07:16 36.7 85 20 118/68 100 Room Air Physical Exam VITALS: Vitals are noted on the nurse's note and reviewed by myself. Vital signs stable. GENERAL: This is a 46-year-old female, in no acute distress, nondiaphoretic, well-developed well-nourished. SKIN: The skin was without rashes, erythema, edema, or bruising. HEAD: Normocephalic atraumatic. EARS: External auditory canals clear, tympanic membranes pearly negro without erythema or effusion bilaterally. EYES: Pupils equal round and reactive to light and accommodation. Conjunctivae without injection, sclerae without icterus. Extraocular movements intact. MOUTH: Mucous membranes moist. Tonsils are not enlarged. Pharynx without erythema or exudate. NECK: Supple without nuchal rigidity. No lymphadenopathy. HEART: Regular rate and rhythm without murmurs gallops or rubs. LUNGS: Clear to auscultation bilaterally without wheezes, rales or rhonchi. MUSCULOSKELETAL: Full range of motion throughout. Strength 5/5 throughout. NEURO: Patient was alert and oriented to person place and time. Normal sensation to light and sharp touch. Deep tendon reflexes 2+ throughout. No focal neurological deficits. Medical Decision & Procedures Laboratory Results 12/13/16 08:05 Red Blood Count 4.60, Mean Corpuscular Volume 81.3, Mean Corpuscular Hemoglobin 26.1, Mean Corpuscular Hemoglobin Concent 32.1, Mean Platelet Volume 8.5, Neutrophils (%) (Auto) 66.0, Lymphocytes (%) (Auto) 22.2, Monocytes (%) (Auto) 7.8, Eosinophils (%) (Auto) 3.0, Basophils (%) (Auto) 0.4, Neutrophils # (Auto) 6.26, Lymphocytes # (Auto) 2.10, Monocytes # (Auto) 0.74, Eosinophils # (Auto) 0.28, Basophils # (Auto) 0.04 12/13/16 08:05 Test 12/13/16 08:05 White Blood Count 9.48 K/uL (4.8-10.8) Red Blood Count 4.60 M/uL (4.2-5.4) Hemoglobin 12.0 g/dL (12.0-16.0) Hematocrit 37.4 % (37-47) Mean Corpuscular Volume 81.3 fL (80-100) Mean Corpuscular Hemoglobin 26.1 pg (25-34) Mean Corpuscular Hemoglobin Concent 32.1 g/dl (32-36) Platelet Count 375 K/uL (130-400) Mean Platelet Volume 8.5 fL (7.4-10.4) Neutrophils (%) (Auto) 66.0 % Lymphocytes (%) (Auto) 22.2 % Monocytes (%) (Auto) 7.8 % Eosinophils (%) (Auto) 3.0 % Basophils (%) (Auto) 0.4 % Neutrophils # (Auto) 6.26 K/uL (1.4-6.5) Lymphocytes # (Auto) 2.10 K/uL (1.2-3.4) Monocytes # (Auto) 0.74 K/uL (0.11-0.59) Eosinophils # (Auto) 0.28 K/uL (0-0.5) Basophils # (Auto) 0.04 K/uL (0-0.2) RDW Standard Deviation 45.0 fL (36.4-46.3) RDW Coefficient of Variation 15.3 % (11.5-14.5) Immature Granulocyte % (Auto) 0.6 % Immature Granulocyte # (Auto) 0.06 K/uL (0.00-0.02) Anion Gap 6.0 mmol/L (3-11) Est Creatinine Clear Calc Drug Dose 75.8 ml/min Estimated GFR () 101.7 Estimated GFR (Non- 87.7 BUN/Creatinine Ratio 8.6 (10-20) Calcium Level 9.0 mg/dl (8.5-10.1) Medications Administered Medications (Trade) Dose Ordered Sig/Tayler Route Start Time Stop Time Status Last Admin Dose Admin Sodium Chloride 1,000 ml @ 999 mls/hr Q1H1M STAT IV 12/13/16 07:46 12/13/16 08:46 DC 12/13/16 08:14 999 MLS/HR Dexamethasone Sodium Phosphate (Decadron Inj) 10 mg NOW STAT IV 12/13/16 07:46 12/13/16 07:49 DC 12/13/16 08:13 10 MG Diphenhydramine HCl (Benadryl Inj) 25 mg NOW STAT IV 12/13/16 07:46 12/13/16 07:49 DC 12/13/16 08:13 25 MG Prochlorperazine Edisylate (Compazine Inj) 10 mg NOW STAT IV 12/13/16 07:46 12/13/16 07:49 DC 12/13/16 08:14 10 MG Ketorolac Tromethamine (Toradol Inj) 30 mg NOW STAT IV 12/13/16 08:54 12/13/16 08:59 DC 12/13/16 09:32 30 MG Medical Decision The differential diagnosis includes acute intracranial bleed, meningitis, encephalitis, mass or mass effect, sinusitis, infection, tumor, headache, temporal arteritis and carbon monoxide exposure, and migraine. The patient is a 46-year-old female who presents today complaining of left- sided headache. No neuro deficits on exam. No evidence of meningitis or encephalitis. This is not the worst headache of the patient's life. Labs were unremarkable. She did have improvement with IV Decadron, Compazine, Benadryl and Toradol. There may be a component of sinus congestion. Patient was advised to follow-up with her primary care provider regarding her headaches. She was encouraged to use Flonase and take antihistamines at home. Based on the patient's presentation and work up, I feel the patient is stable for outpatient treatment. The patient was educated to return to the emergency department for any worsening of their current condition or new/concerning symptoms. She will follow up with her primary care provider. The patient was independently evaluated by Dr. Mills, ED attending physician , who agreed with my assessment and treatment plan. Medication Reconcilliation Current Medication List: was personally reviewed by me Blood Pressure Screening Patient's blood pressure: Normal blood pressure Impression Primary Impression: Headache Departure Information Dispostion Home / Self-Care Condition GOOD Referrals Kiki Ferraro D.O. (PCP) Patient Instructions My [facility] Additional Instructions You should use a Flonase nasal spray daily to help with congestion. You should take an [id number]-[id number] antihistamine and decongestant, such as Claritin-D, Luly-D, or Zyrtec-D. You may also try a medication like Sudafed, which can help with nasal congestion. For pain control, you can use the following [id number] medicines (if >12 yo): - Regular strength (325mg/tab) Tylenol (acetaminophen) 2 tabs every 4-6 hours as needed. Do not exceed 12 tablets in a 24 hour period. Avoid taking more than 4 grams (4000 mg) of Tylenol per day. This includes any other sources of acetaminophen you may take on a regular basis. - Regular strength (200 mg/tab) Advil (ibuprofen) 1-2 tabs every 4-6 hours as needed. Do not exceed a dose of 3200 mg per day. Rest and drink plenty of fluids. Follow closely with your primary care provider within one week for further evaluation of today's visit. Return to the emergency by male with worsening headache, fever, or any other new /concerning symptoms.
[2016-12-13 09:59] VITALS: BP 131/76; PULSE 88; O2SAT 100
== END 2016-12-13 10:00 | disposition home or self-care (01) ==
LOC: C.EDB 07:12 → C.EDA 10:00
DX: R51 Headache (principal); J45.909 Unspecified asthma, uncomplicated; M32.9 Systemic lupus erythematosus, unspecified

== ENCOUNTER 2017-03-13 17:06 | Observation (INO) | payer OTHER ==
[~2017-03-13] VITALS: Ht 157.5 cm; Wt 63.1 kg
[~2017-03-13 17:06] MED LIST changes: -CEPH500C PO; -HYDR5SYP11 PO; -PRED20TA2 PO
[2017-03-13] MEDS ORDERED: ONDANSETRON INJ 2 MG/ML 2 ML VIAL IV STA (18:07)
[2017-03-13] MEDS ORDERED: ACETAMINOPHEN 325 MG TAB PO STA (18:07)
[2017-03-13] MEDS ORDERED: SODIUM CHLORIDE 0.9% 1000ML 1,000 ML IV STA (18:07)
--- NOTE | 2017-03-13 18:36 | EMERGENCY ROOM VISIT NOTE ---
History Report prepared by Debra: Mitzi Rowe Under the Supervision of: Dr. Parminder Oliva M.D. 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 The patient notes headache, fevers, sore throat, nasal congestion, chills, nausea, vomiting, ear pain, jaw pain, productive cough, abdominal pain, and chest pain. She currently rates her pain a 9/10 in severity. She notes four episodes of vomiting today. She notes her fever was 102 this afternoon. She notes that she has not received her flu shot this season. She denies any diarrhea. The patient has a history of lupus, Raynaud's disease, fibromyalgia, and GERD. 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 A total of ten systems were reviewed and were otherwise negative. Past Medical & Surgical Medical Problems: (1) Abdominal pain (2) Asthma (3) Bronchitis (4) Fibromyalgia (5) Gastrointestinal infection (6) GERD (gastroesophageal reflux disease) (7) Hypothyroidism (8) Leukocytosis (9) Lupus (10) Lupus (11) Migraine (12) Pelvic pain (13) PNA (pneumonia) (14) Raynaud phenomenon (15) Rib pain on right side (16) Urinary tract infection Surgical Problems: (1) Fistula (2) History of tonsillectomy and adenoidectomy Family History FH: cancer Heart disease Social History Smoking Status: Never Smoker Alcohol Use: occasionally Drug Use: none Marital Status: Housing Status: lives with family Occupation Status: unemployed Current/Historical Medications Scheduled Aspirin (Aspirin 81), 1 TAB PO DAILY Hydroxychloroquine Sulfate (Hydroxychloroquine Sulfat), 200 MG PO HS Levothyroxine Sodium (Levothyroxine Sodium), 75 MCG PO DAILY Lisinopril (Lisinopril), 20 MG PO DAILY Lorazepam (Ativan), 0.5 MG PO TID Mycophenolate Mofetil (Mycophenolate Mofetil), 1,000 MG PO BID Omeprazole (Prilosec), 20 MG PO BID Ondasetron Odt (Zofran Odt), 4 MG SL Q8 Scheduled PRN Albuterol Hfa (Ventolin Hfa), 2 PUFFS INH QID PRN for SOB/Wheezing Cyclobenzaprine HCl (Cyclobenzaprine HCl), 10 MG PO TID PRN for Muscle Spasms Dextromethorphan-Phenylephrine (Vicks Dayquil Cold & Flu), 1 CAP PO DIRECTED PRN for COUGH/COLD Oxycodone/Acetaminophen 5MG/325MG (Percocet 5MG/325MG), 1 TABLET PO Q8 PRN for Moderate Pain Ranitidine HCl (Ranitidine HCl), 150 MG PO BID PRN for Heartburn Allergies Coded Allergies: Molds & Smuts (Verified Allergy, Intermediate, allergy, 03/13/17) Latex1 -Allergic Contact Dermititis (Verified Allergy, Mild, `ALSO VINYL- BLISTERS, 03/13/17) Chocolate (Verified Allergy, Unknown, migraines, 03/13/17) Mushroom (Verified Adverse Reaction, Intermediate, n/v, 03/13/17) NSAIDs (Verified Adverse Reaction, Unknown, NO ASA,IBUPROFEN,NAPROXEN, TORADOL PER DR MATTHEWS 12/22/09, 03/13/17) Physical Exam Vital Signs Date Time Temp Pulse Resp B/P (MAP) Pulse Ox O2 Delivery O2 Flow Rate FiO2 03/13/17 21:02 80 18 121/65 99 Room Air 03/13/17 19:48 37.6 03/13/17 19:02 92 20 133/67 98 Room Air 03/13/17 18:06 95 03/13/17 17:23 39.2 100 16 139/70 94 Room Air Physical Exam GENERAL: Awake, alert, ill-appearing, in no distress HENT: Normocephalic, atraumatic. Oropharynx dry cracked mucus membranes. Mild injection in left TM. EYES: Normal conjunctiva. Sclera non-icteric. NECK: Supple. No nuchal rigidity. FROM. No JVD. RESPIRATORY: Clear to auscultation. CARDIAC: Regular rate, normal rhythm. Extremities warm and well perfused. Pulses equal. ABDOMEN: Soft, non-distended. No tenderness to palpation. No rebound or guarding. No masses. RECTAL: Deferred. MUSCULOSKELETAL: Chest examination reveals no tenderness. The back is symmetrical on inspection without obvious abnormality. There is no CVA tenderness to palpation. No joint edema. LOWER EXTREMITIES: Calves are equal size bilaterally and non-tender. No edema. No discoloration. NEURO: Normal sensorium. No sensory or motor deficits noted. SKIN: No rash or jaundice noted. Medical Decision & Procedures ER Provider Diagnostic Interpretation: Radiology results as stated below per my review and radiologist interpretation: CHEST 2 VIEWS ROUTINE CLINICAL HISTORY: Cough dyspnea COMPARISON STUDY: 12/04/2016 FINDINGS: The bones soft tissues and hemidiaphragms are normal. The cardiomediastinal silhouette is normal. The lungs are clear. The pulmonary vasculature is normal. IMPRESSION: Negative chest. The above report was generated using voice recognition software. It may contain grammatical, syntax or spelling errors. Electronically signed by: Chon Fernando M.D. 03/13/2017 7:37 PM Dictated Date/Time: 03/13/2017 7:37 PM Laboratory Results Test 03/13/17 18:00 03/13/17 18:30 03/13/17 19:59 Influenza Type A Antigen POS for Influ A (NEG) Influenza Type B Antigen Neg for Influ B (NEG) Total Bilirubin 0.4 mg/dl (0.2-1) Aspartate Amino Transf (AST/SGOT) 20 U/L (15-37) Alanine Aminotransferase (ALT/SGPT) 18 U/L (12-78) Alkaline Phosphatase 89 U/L (45-117) Total Protein 6.8 gm/dl (6.4-8.2) Albumin 3.5 gm/dl (3.4-5.0) Globulin 3.3 gm/dl (2.5-4.0) Albumin/Globulin Ratio 1.1 (0.9-2) Urine Color YELLOW Urine Appearance CLEAR (CLEAR) Urine pH 5.5 (4.5-7.5) Urine Specific [place] 1.007 (1.000-1.030) Urine Protein NEG (NEG) Urine Glucose (UA) NEG (NEG) Urine Ketones NEG (NEG) Urine Occult Blood NEG (NEG) Urine Nitrite NEG (NEG) Urine Bilirubin NEG (NEG) Urine Urobilinogen NEG (NEG) Urine Leukocyte Esterase NEG (NEG) Laboratory results reviewed by me Medications Administered Medications (Trade) Dose Ordered Sig/Tayler Route Start Time Stop Time Status Last Admin Dose Admin Sodium Chloride 1,000 ml @ 999 mls/hr Q1H1M STAT IV 03/13/17 18:07 03/13/17 19:07 DC 03/13/17 18:31 999 MLS/HR Ondansetron HCl (Zofran Inj) 4 mg NOW STAT IV 03/13/17 18:07 03/13/17 18:12 DC 03/13/17 18:30 4 MG Acetaminophen (Tylenol Tab) 650 mg NOW STAT PO 03/13/17 18:07 03/13/17 18:12 DC 03/13/17 18:32 650 MG Sodium Chloride 1,000 ml @ 999 mls/hr Q1H1M IV 03/13/17 19:00 03/13/17 21:00 DC 03/13/17 19:02 999 MLS/HR Amoxicillin (Amoxil Cap) 500 mg NOW STAT PO 03/13/17 19:01 03/13/17 19:02 DC 03/13/17 19:46 500 MG Oseltamivir Phosphate (Tamiflu Cap) 75 mg NOW STAT PO 03/13/17 19:01 03/13/17 19:02 DC 03/13/17 19:44 75 MG ED Course 1829: The patient was evaluated in room C7. A complete history and physical exam was performed. 2100: Resident, Dr. Elias spoke with Aranza Simmons PA-C. The patient will be evaluated by the [facility] for further management. Medical Decision I reviewed the patient's past medical history, medications, and the nursing notes as described above. The patient's presentation and history were concerning for PNA, bronchitis, otitis media, UTI, viral syndrome/influenza, sepsis, dehydration, and electrolyte abnormality. Patient is a 47-year-old woman with a past mental history of lupus on hydroxychloroquine and mycophenolate percents to emergency department with body aches, fevers chills, ear pain, nausea vomiting per history of present illness. Arrival the patient is ill-appearing and uncomfortable but in no acute distress, febrile, tachycardic in the low 100s with vital signs otherwise stable. On exam the patient has mild injection to the left TM. Labs notable for a positive influenza A. WBC within normal limits. Lactate 2.1 however in the setting of the patient's clinically dry appearance. Heart rate improving to 80-90s with IV fluid hydration. Given the patient's left TM injection will treat for otitis media with amoxicillin. Considering the patient's ill appearance on arrival in the setting of being immunocompromised with influenza as well as otitis media it is reasonable to admit the patient for further management. The resident discussed the case with Kenny Borden PA-C, who will admit the patient for further management. I discussed the case with the resident physician, examined the patient, and agree with the findings and plan as documented in the residents note unless otherwise clarified here by me. Medication Reconcilliation Current Medication List: was personally reviewed by me Blood Pressure Screening Patient's blood pressure: Normal blood pressure Impression Primary Impression: Otitis media of left ear Additional Impression: Influenza A Scribe Attestation The scribe's documentation has been prepared under my direction and personally reviewed by me in its entirety. I confirm that the note above accurately reflects all work, treatment, procedures, and medical decision making performed by me. Departure Information Dispostion Being Evaluated By Hospitalist Referrals Kiki Ferraro D.O. (PCP) Patient Instructions My [facility] Problem Qualifiers
[2017-03-13 18:39] LABS: INFLUENZA B ANTIGEN Neg for Influ B (NEG)
[2017-03-13 18:43] LABS: BASO % 0.4 %; BASO ABS # 0.03 K/uL (0-0.2); HEMATOCRIT 35.1 % (37-47); HEMOGLOBIN 11.8 g/dL (12.0-16.0); IG# 0.02 K/uL (0.00-0.02); LYMPH % 8.9 %; LYMPH ABS # 0.74 K/uL (1.2-3.4); MEAN CELL VOLUME 84.6 fL (80-100); MEAN CORPUSCULAR HEMOGLOBIN 28.4 pg (25-34); MEAN CORPUSCULAR HGB CONC 33.6 g/dl (32-36); MONO % 6.9 %; MONO ABS # 0.58 K/uL (0.11-0.59); NEUT % 83.6 %; NEUT ABS # 6.99 K/uL (1.4-6.5); PLATELET COUNT 188 K/uL (130-400); RED CELL DISTRIBUTION WIDTH CV 14.9 % (11.5-14.5); RED CELL DISTRIBUTION WIDTH SD 46.2 fL (36.4-46.3); WHITE BLOOD COUNT 8.36 K/uL (4.8-10.8)
[2017-03-13] MEDS ORDERED: DEXT1CAP9 PO (18:45)
[2017-03-13 19:01] LABS: ALBUMIN 3.5 gm/dl (3.4-5.0); CALCIUM 8.4 mg/dl (8.5-10.1); CREATININE 0.81 mg/dl (0.60-1.20); POTASSIUM 3.3 mmol/L (3.5-5.1)
[2017-03-13] MEDS ORDERED: OSELTAMIVIR PHOSPHATE 75 MG CAP PO STA (19:01)
[2017-03-13] MEDS ORDERED: AMOXICILLIN 500 MG CAP PO STA (19:01)
[2017-03-13] MEDS: SODIUM CHLORIDE 0.9% 1000ML 1,000 ML IV SCH ×2 (19:02→21:40)
[2017-03-13 19:04] LABS: TOTAL PROTEIN 6.8 gm/dl (6.4-8.2)
--- NOTE | 2017-03-13 19:39 | DIAGNOSTIC IMAGING REPORT ---
CHEST 2 VIEWS ROUTINE CLINICAL HISTORY: Cough dyspnea COMPARISON STUDY: 12/04/2016 FINDINGS: The bones soft tissues and hemidiaphragms are normal. The cardiomediastinal silhouette is normal. The lungs are clear. The pulmonary vasculature is normal. IMPRESSION: Negative chest. The above report was generated using voice recognition software. It may contain grammatical, syntax or spelling errors. Electronically signed by: Chon Fernando M.D. 03/13/2017 7:37 PM Dictated Date/Time: 03/13/2017 7:37 PM
--- NOTE | 2017-03-13 20:43 | EMERGENCY ROOM VISIT NOTE ---
History First contact with patient: 17:53 Chief Complaint: FLU LIKE SX Stated Complaint: FLU History of Present Illness The patient is a 47 year old female who presents to the Emergency Room with complaints of 4 day history of muscle aches and pains. Her symptoms started on Friday night. She says her whole body hurts and she feels as if her nails are getting ripped out of her foot. She has associated sore throat, nasal congestion, ear pain, headaches, abdominal pain, and chest pain. She has vomited 4 times without blood. She has not had her flu vaccine this year. She has a PMH of Lupus, Raynauds, Fibromyalgia and GERD Review of Systems CONSTITUTIONAL: + fever, chills, sweats or night sweats. No recent infections. No weight loss or weight gain. NEUROLOGIC: + headaches, dizziness HEENT: No hearing or visual changes. No sinus or nasal issues. No mouth sores, thrush or oral lesions. CARDIOVASCULAR: + chest pain no palpitations. RESPIRATORY: +sob, +cough GASTROINTESTINAL: + nausea, vomiting, no diarrhea, constipation, reflux, melena or hematochezia. GENITOURINARY: No dysuria, frequency, urgency, incontinence or hematuria. MUSCULOSKELETAL: +generalized muscle aches and pains SKIN: No rashes or skin lesions. No hair loss or nail changes. HEMATOLOGIC: No bleeding or abnormal bruising Past Medical/Surgical History Medical Problems: (1) Asthma (2) Bronchitis (3) Gastrointestinal infection (4) Lupus (5) Migraines (6) PNA (pneumonia) Surgical Problems: (1) Fistula Family History FH: cancer Heart disease Social History Smoking Status: Never Smoker Alcohol Use: occasionally Drug Use: none Marital Status: Housing Status: lives with family Occupation Status: unemployed Current/Historical Medications Scheduled Cyclobenzaprine HCl (Cyclobenzaprine HCl), 20 MG PO HS Hydroxychloroquine Sulfate (Hydroxychloroquine Sulfat), 200 MG PO HS Levothyroxine Sodium (Levothyroxine Sodium), 75 MCG PO DAILY Lisinopril (Lisinopril), 20 MG PO DAILY Mycophenolate Mofetil (Mycophenolate Mofetil), 1,000 MG PO BID Omeprazole (Prilosec), 20 MG PO BID Scheduled PRN Albuterol Hfa (Ventolin Hfa), 2 PUFFS INH QID PRN for SOB/Wheezing Dextromethorphan-Phenylephrine (Vicks Dayquil Cold & Flu), 1 CAP PO DIRECTED PRN for COUGH/COLD Oxycodone/Acetaminophen 5MG/325MG (Percocet 5MG/325MG), 1 TABLET PO Q8 PRN for Moderate Pain Ranitidine HCl (Ranitidine HCl), 150 MG PO BID PRN for Heartburn Allergies NKDA Physical Exam Vital Signs Date Time Temp Pulse Resp B/P (MAP) Pulse Ox O2 Delivery O2 Flow Rate FiO2 03/13/17 19:48 37.6 03/13/17 19:02 92 20 133/67 98 Room Air 03/13/17 18:06 95 03/13/17 17:23 39.2 100 16 139/70 94 Room Air Physical Exam Gen: patient appears uncomfortable and is holding her head. Dry mucous membranes , cap refill 3-4 seconds HEENT: Head - normocephalic and atraumatic. Pupils are equal, round, and reactive to light. . . Nose - moist nasal mucosa without discharge. Mouth - moist buccal mucosa. Oropharynx is nonerythematous and there is no tonsillar exudate or edema noted. Neck: Supple; no JVD, nuchal rigidity, cervical lymphadenopathy, or auscultated bruits. Heart: Regular rate and rhythm. There is a normal S1 and S2 with no murmurs, clicks, or gallops appreciated. Lungs: Clear to auscultation bilaterally with no wheezes, rales, or rhonchi. Abdomen: Mild epigastric tenderness nondistended, with good bowel sounds. There are no palpable pulsatile masses or hepatosplenomegaly. There is no guarding, rigidity, or rebound noted. Extremities: No evidence of cyanosis, clubbing, or edema. There are easily palpable peripheral pulses. Medical Decision & Procedures Laboratory Results 03/13/17 18:30 Red Blood Count 4.15, Mean Corpuscular Volume 84.6, Mean Corpuscular Hemoglobin 28.4, Mean Corpuscular Hemoglobin Concent 33.6, Mean Platelet Volume 9.0, Neutrophils (%) (Auto) 83.6, Lymphocytes (%) (Auto) 8.9, Monocytes (%) (Auto) 6.9, Eosinophils (%) (Auto) 0.0, Basophils (%) (Auto) 0.4, Neutrophils # (Auto) 6.99, Lymphocytes # (Auto) 0.74, Monocytes # (Auto) 0.58, Eosinophils # (Auto) 0.00, Basophils # (Auto) 0.03 03/13/17 18:30 Test 03/13/17 18:00 03/13/17 18:30 03/13/17 18:50 03/13/17 19:59 Influenza Type A Antigen POS for Influ A (NEG) Influenza Type B Antigen Neg for Influ B (NEG) White Blood Count 8.36 K/uL (4.8-10.8) Red Blood Count 4.15 M/uL (4.2-5.4) Hemoglobin 11.8 g/dL (12.0-16.0) Hematocrit 35.1 % (37-47) Mean Corpuscular Volume 84.6 fL (80-100) Mean Corpuscular Hemoglobin 28.4 pg (25-34) Mean Corpuscular Hemoglobin Concent 33.6 g/dl (32-36) Platelet Count 188 K/uL (130-400) Mean Platelet Volume 9.0 fL (7.4-10.4) Neutrophils (%) (Auto) 83.6 % Lymphocytes (%) (Auto) 8.9 % Monocytes (%) (Auto) 6.9 % Eosinophils (%) (Auto) 0.0 % Basophils (%) (Auto) 0.4 % Neutrophils # (Auto) 6.99 K/uL (1.4-6.5) Lymphocytes # (Auto) 0.74 K/uL (1.2-3.4) Monocytes # (Auto) 0.58 K/uL (0.11-0.59) Eosinophils # (Auto) 0.00 K/uL (0-0.5) Basophils # (Auto) 0.03 K/uL (0-0.2) RDW Standard Deviation 46.2 fL (36.4-46.3) RDW Coefficient of Variation 14.9 % (11.5-14.5) Immature Granulocyte % (Auto) 0.2 % Immature Granulocyte # (Auto) 0.02 K/uL (0.00-0.02) Anion Gap 9.0 mmol/L (3-11) Est Creatinine Clear Calc Drug Dose 75.7 ml/min Estimated GFR () 100.9 Estimated GFR (Non- 87.1 BUN/Creatinine Ratio 3.5 (10-20) Calcium Level 8.4 mg/dl (8.5-10.1) Total Bilirubin 0.4 mg/dl (0.2-1) Aspartate Amino Transf (AST/SGOT) 20 U/L (15-37) Alanine Aminotransferase (ALT/SGPT) 18 U/L (12-78) Alkaline Phosphatase 89 U/L (45-117) Total Protein 6.8 gm/dl (6.4-8.2) Albumin 3.5 gm/dl (3.4-5.0) Globulin 3.3 gm/dl (2.5-4.0) Albumin/Globulin Ratio 1.1 (0.9-2) Lactic Acid Level 2.1 mmol/L (0.4-2.0) Urine Color YELLOW Urine Appearance CLEAR (CLEAR) Urine pH 5.5 (4.5-7.5) Urine Specific [place] 1.007 (1.000-1.030) Urine Protein NEG (NEG) Urine Glucose (UA) NEG (NEG) Urine Ketones NEG (NEG) Urine Occult Blood NEG (NEG) Urine Nitrite NEG (NEG) Urine Bilirubin NEG (NEG) Urine Urobilinogen NEG (NEG) Urine Leukocyte Esterase NEG (NEG) Medications Administered Medications (Trade) Dose Ordered Sig/Tayler Route Start Time Stop Time Status Last Admin Dose Admin Sodium Chloride 1,000 ml @ 999 mls/hr Q1H1M STAT IV 03/13/17 18:07 03/13/17 19:07 DC 03/13/17 18:31 999 MLS/HR Ondansetron HCl (Zofran Inj) 4 mg NOW STAT IV 03/13/17 18:07 03/13/17 18:12 DC 03/13/17 18:30 4 MG Acetaminophen (Tylenol Tab) 650 mg NOW STAT PO 03/13/17 18:07 03/13/17 18:12 DC 03/13/17 18:32 650 MG Sodium Chloride 1,000 ml @ 999 mls/hr Q1H1M IV 03/13/17 19:00 03/13/17 21:00 03/13/17 19:02 999 MLS/HR Amoxicillin (Amoxil Cap) 500 mg NOW STAT PO 03/13/17 19:01 03/13/17 19:02 DC 03/13/17 19:46 500 MG Oseltamivir Phosphate (Tamiflu Cap) 75 mg NOW STAT PO 03/13/17 19:01 03/13/17 19:02 DC 03/13/17 19:44 75 MG ED Course 1750: patient was seen in C7. a full history and examination were performed 1804: I discussed the case with Dr. Oliva and lab work/imaging was ordered. I ordered 1L NS, Zofran 4mg IV and tylenol PO 1934: the patient was reassessed and she was still having body aches and was not feeling well 2010: I discussed the case with the Randee CRANE documentation liaison and she agreed to evaluate the patient for admission. Patient was made aware of this and was in agreement with the plan Medical Decision 47 year old female is immunocompromised secondary to medication for her lupus. She was diagnosed with influenza A. Her vitals have shown that she is febrile and tachycardic. She had a lactic acid of 2.1 with a normal WCC. Her Hgb was decreased at 11.8 and her potassium was 3.3. She had a CXR which was normal. Patient was given 2L of NS in the ED and was given tylenol and zofran. She was started on tamiflu as well as amoxicillin as her tympanic membrane appeared erythematous. Patient continued to be uncomfortable and in mild distress. Due to her immunocompromised state it was decided to admit the patient for observation. Patient was in agreement and Randee CRANE said she would evaluate the patient for admission. Impression Primary Impression: Flu Departure Information Dispostion Admitted as an inpatient Condition POOR Referrals Kiki Ferraro D.O. (PCP) Patient Instructions My [facility]
[2017-03-13] MEDS ORDERED: ONDANSETRON INJ 2 MG/ML 2 ML VIAL IV PRN (21:15)
[2017-03-13] MEDS ORDERED: ACETAMINOPHEN 325 MG TAB PO PRN (21:15)
[2017-03-13] MEDS ORDERED: NITROGLYCERIN 0.4 MG SL PER TAB CHARGE SL PRN (21:15)
[2017-03-13] MEDS ORDERED: MAGNESIUM HYDROXIDE SUSP 30 ML UDC PO PRN (21:15)
[2017-03-13] MEDS ORDERED: POTASSIUM CHLORIDE 10 MEQ TABCR PO STA (21:18)
[2017-03-13] MEDS ORDERED: ASPI-435 PO (21:30)
[2017-03-13] MEDS ORDERED: LORA-741 PO (21:30)
[2017-03-13] MEDS ORDERED: RANITIDINE HCL 150 MG TAB PO PRN (21:30)
[2017-03-13] MEDS ORDERED: ONDA4TAB10 SL (21:30)
[2017-03-13] MEDS: ALBUT/IPRATROP 3MG/0.5MG NEB 3 ML VIAL INH SCH (21:34)
[2017-03-13] MEDS ORDERED: IV FLUIDS COMPLETED PRN (21:45)
--- NOTE | 2017-03-13 21:56 | History and Physical ---
History & Physical Date & Time of Service: Mar 13, 2017 at 21:32 Chief Complaint: FLU Primary Care Physician: Kiki Ferraro D.O. History of Present Illness Source: patient, clinic records, hospital records Pt is 47 y/o F with PMH SLE, hypothyroidism, GERD, fibromyalgia, Raynaud's, lupus nephritis presented to ER with c/o fever, myalgias, cough x 3 days. Pt states 3 days ago started with rhinorrhea, sore throat, cough. Yesterday fever 102F and diffuse myalgias and arthralgias. C/O bilateral ear pressure. Reports today had 4 episodes post-tussive emesis. She reports hx SOB and wheezing with URI's and has albuterol inhaler to use prn, however pt didn't know where it was at so could not use it past couple of days. States doesn't feel increased SOB but cough is bothering her. Reports chronic intermittent BAUTISTA's and chronic neck and back pain. Denies any worsening and denies current BAUTISTA. Tried OTC cold medicine without much relief. Reports did not receive influenza vaccine this season. Daughter starting with URI symptoms. Denies recent travel, dizziness, syncope, vision changes, diarrhea, constipation, hematemesis, hemoptysis, CP, orthopnea,choking, dysphagia, ear discharge, abdominal pain, paresthesias, extremity edema, rashes, urinary symptoms. [place] [id number] and improved renal functions since, has fistula L arm. In ER febrile at 39.2 decreased to 37.6 after tylenol and IVF. P: 100 down to 92 , BP: 133/67, O2: 94-98% on RA. WBC: 8, Lactic acid: 2.1, Hgb: 11.8 (12.2 baseline), +influenza A, negative CXR, negative U/A, negative strep swab, pending blood cultures. Given 2L NSS, Tylenol, Zofran, Tamiflu, and amoxicillin for otitis media. Past Medical/Surgical History Medical Problems: (1) Abdominal pain Status: Resolved (2) Asthma Status: Chronic (3) Bronchitis Status: Resolved (4) Fibromyalgia Status: Chronic (5) Gastrointestinal infection Status: Resolved (6) GERD (gastroesophageal reflux disease) Status: Chronic (7) Hypothyroidism Status: Chronic (8) Leukocytosis Status: Resolved (9) Lupus Status: Chronic (10) Lupus Status: Resolved (11) Migraine Status: Resolved (12) Pelvic pain Status: Chronic (13) PNA (pneumonia) Status: Resolved (14) Raynaud phenomenon Status: Chronic (15) Rib pain on right side Status: Resolved (16) Urinary tract infection Status: Resolved Surgical Problems: (1) Fistula Status: Resolved (2) History of tonsillectomy and adenoidectomy Status: Resolved Family History FH: cancer Heart disease Social History Smoking Status: Never Smoker Smokeless Tobacco Use: No Alcohol Use: occasionally Drug Use: none Marital Status: Housing status: lives with family Occupational Status: unemployed Immunizations History of Influenza Vaccine: No History of Tetanus Vaccine?: Yes History of Pneumococcal: No History of Hepatitis B Vaccine: Yes Multi-Drug Resistant Organisms History of MDRO: No Allergies Coded Allergies: Molds & Smuts (Verified Allergy, Intermediate, allergy, 03/13/17) Latex1 -Allergic Contact Dermititis (Verified Allergy, Mild, `ALSO VINYL- BLISTERS, 03/13/17) Chocolate (Verified Allergy, Unknown, migraines, 03/13/17) Mushroom (Verified Adverse Reaction, Intermediate, n/v, 03/13/17) NSAIDs (Verified Adverse Reaction, Unknown, NO ASA,IBUPROFEN,NAPROXEN, TORADOL PER DR MATTHEWS 12/22/09, 03/13/17) Home Medications Scheduled Aspirin (Aspirin 81), 1 TAB PO DAILY Hydroxychloroquine Sulfate (Hydroxychloroquine Sulfat), 200 MG PO HS Levothyroxine Sodium (Levothyroxine Sodium), 75 MCG PO DAILY Lisinopril (Lisinopril), 20 MG PO DAILY Lorazepam (Ativan), 0.5 MG PO TID Mycophenolate Mofetil (Mycophenolate Mofetil), 1,000 MG PO BID Omeprazole (Prilosec), 20 MG PO BID Ondasetron Odt (Zofran Odt), 4 MG SL Q8 Scheduled PRN Albuterol Hfa (Ventolin Hfa), 2 PUFFS INH QID PRN for SOB/Wheezing Cyclobenzaprine HCl (Cyclobenzaprine HCl), 10 MG PO TID PRN for Muscle Spasms Dextromethorphan-Phenylephrine (Vicks Dayquil Cold & Flu), 1 CAP PO DIRECTED PRN for COUGH/COLD Oxycodone/Acetaminophen 5MG/325MG (Percocet 5MG/325MG), 1 TABLET PO Q8 PRN for Moderate Pain Ranitidine HCl (Ranitidine HCl), 150 MG PO BID PRN for Heartburn Review of Systems Constitutional: + problem reported (see HPI) Eyes: No worsening of vision, No eye pain, No redness, No discharge, No diplopia ENT: + problem reported (see HPI), No hearing loss, No unusual epistaxis Respiratory: + problem reported (see HPI) Cardiovascular: No chest pain, No orthopnea, No edema Abdomen: + problem reported (see HPI), No GI bleeding Musculoskeletal: + problem reported (see HPI) Genitourinary - Female: No dysuria, No urinary frequency, No urinary urgency, No urinary incontinence, No urinary retention, No hematuria Neurologic: No numbness/tingling, No vertigo Psychiatric: No depression symptoms, No anxiety Endocrine: No excessive thirst, No excessive urination Hematologic / Lymphatic: No abnormal bleeding/bruising, No clotting problems Integumentary: No rash, No itch Physical Exam Vital Signs Date Time Temp Pulse Resp B/P (MAP) Pulse Ox O2 Delivery O2 Flow Rate FiO2 03/13/17 19:48 37.6 03/13/17 19:02 92 20 133/67 98 Room Air 03/13/17 18:06 95 03/13/17 17:23 39.2 100 16 139/70 94 Room Air General Appearance: + pertinent finding (chronically ill appearing, in no apparent distress) Head: normocephalic, atraumatic Eyes: PERRL, EOMI, sclerae normal ENT: hearing grossly normal, pharynx normal, + pertinent finding (R TM with slight erythema, no significant bulging and intact. L TM dull without significant erythema, +TM scarring and intact. Canals bilaterally without erythema or edema or discharge. No significant rhinorrhea) Neck: supple, no adenopathy, trachea midline Respiratory/Chest: chest non-tender, lungs clear, normal breath sounds, no respiratory distress, no accessory muscle use Cardiovascular: regular rate, rhythm, no edema, no murmur, normal peripheral pulses Abdomen/GI: normal bowel sounds, non tender, soft Back: normal inspection Extremities/Musculoskelatal: normal inspection, no pedal edema, normal range of motion Neurologic/Psych: alert, normal mood/affect, oriented x 3 Skin: normal color, warm/dry Diagnostics Laboratory Results Results Past 24 Hours Test 03/13/17 18:00 03/13/17 18:30 03/13/17 18:50 03/13/17 19:59 Range/Units Influenza Type A Antigen POS for Influ A NEG Influenza Type B Antigen Neg for Influ B NEG White Blood Count 8.36 4.8-10.8 K/uL Red Blood Count 4.15 4.2-5.4 M/uL Hemoglobin 11.8 12.0-16.0 g/dL Hematocrit 35.1 37-47 % Mean Corpuscular Volume 84.6 80-100 fL Mean Corpuscular Hemoglobin 28.4 25-34 pg Mean Corpuscular Hemoglobin Concent 33.6 32-36 g/dl Platelet Count 188 130-400 K/uL Mean Platelet Volume 9.0 7.4-10.4 fL Neutrophils (%) (Auto) 83.6 % Lymphocytes (%) (Auto) 8.9 % Monocytes (%) (Auto) 6.9 % Eosinophils (%) (Auto) 0.0 % Basophils (%) (Auto) 0.4 % Neutrophils # (Auto) 6.99 1.4-6.5 K/uL Lymphocytes # (Auto) 0.74 1.2-3.4 K/uL Monocytes # (Auto) 0.58 0.11-0.59 K/uL Eosinophils # (Auto) 0.00 0-0.5 K/uL Basophils # (Auto) 0.03 0-0.2 K/uL RDW Standard Deviation 46.2 36.4-46.3 fL RDW Coefficient of Variation 14.9 11.5-14.5 % Immature Granulocyte % (Auto) 0.2 % Immature Granulocyte # (Auto) 0.02 0.00-0.02 K/uL Sodium Level 134 136-145 mmol/L Potassium Level 3.3 3.5-5.1 mmol/L Chloride Level 101 98-107 mmol/L Carbon Dioxide Level 24 21-32 mmol/L Anion Gap 9.0 3-11 mmol/L Blood Urea Nitrogen 3 7-18 mg/dl Creatinine 0.81 0.60-1.20 mg/dl Est Creatinine Clear Calc Drug Dose 75.7 ml/min Estimated GFR () 100.9 Estimated GFR (Non- 87.1 BUN/Creatinine Ratio 3.5 10-20 Random Glucose 101 70-99 mg/dl Calcium Level 8.4 8.5-10.1 mg/dl Total Bilirubin 0.4 0.2-1 mg/dl Aspartate Amino Transf (AST/SGOT) 20 15-37 U/L Alanine Aminotransferase (ALT/SGPT) 18 12-78 U/L Alkaline Phosphatase 89 45-117 U/L Total Protein 6.8 6.4-8.2 gm/dl Albumin 3.5 3.4-5.0 gm/dl Globulin 3.3 2.5-4.0 gm/dl Albumin/Globulin Ratio 1.1 0.9-2 Lactic Acid Level 2.1 0.4-2.0 mmol/L Urine Color YELLOW Urine Appearance CLEAR CLEAR Urine pH 5.5 4.5-7.5 Urine Specific [place] 1.007 1.000-1.030 Urine Protein NEG NEG Urine Glucose (UA) NEG NEG Urine Ketones NEG NEG Urine Occult Blood NEG NEG Urine Nitrite NEG NEG Urine Bilirubin NEG NEG Urine Urobilinogen NEG NEG Urine Leukocyte Esterase NEG NEG Microbiology Results 03/13/17 Blood Culture, Received Pending 03/13/17 Blood Culture, Received Pending 03/13/17 Group A Streptococcus Screen - Final, Resulted SPECIMEN NEGATIVE FOR GROUP A BETA ST... 03/13/17 Group A Streptococcus Screen (PAUL), Resulted Pending Diagnostic Radiology CXR: IMPRESSION: Negative chest. Impression Assessment and Plan FEVER SECONDARY TO INFLUENZA Pt febrile at 39.2 decreased to 37.6 after tylenol and IVF. P: 100 down to 92. Probable from fever and some dehydration. BP: 133/67, O2: 94-98% on RA. WBC: 8, Lactic acid: 2.1, Hgb: 11.8 (12.2 baseline), +influenza A, negative CXR, negative U/A, negative strep swab. In ER Given 2L NSS, Tylenol, Zofran, Tamiflu , and amoxicillin for otitis media. -blood cultures pending -Tamiflu -duonebs -will continue amoxicillin -cough suppressant -IVF -zofran prn nausea -repeat CXR in am -repeat cbc in am HYPOKALEMIA K: 3.3. probable from vomiting -replace -repeat prp in am SLE -continue CellCept -continue Plaquenil FIBROMYALGIA -continue Flexeril prn -continue Percocet prn HYPOTHYROIDISM -continue levothyroxine GERD -continue PPI -continue ranitidine prn DVT PROPHYLAXIS -Lovenox SQ DISPOSITION -admit tele obs -Full code -Follows with Dr Kiki Ferraro for routine care Pt was seen with Dr Mei. See addendum Dr. Mei attending physician, addendum: I have seen and examined patient with ROYCE Simmons and agree with the assessment and plan as above. This is a 47 year female with fever likely due to Influenza, also possible upper respiratory infection of sinusitis/otitis media. Chest X ray with no infiltrates suggestive of pneumonia. Patient to be on Tamiflu and Amoxicillin. Patient's also has cough and may benefit from nebulizer treatments if coughing persists and leads to dyspnea. Currently is breathing on room air. Chest X ray ordered for tomorrow as follow up imaging to rule out new lung infiltrates Patient is also on immunosuppressant medications for SLE however she is not neutropenic. Blood cultures were sent in the Emergency room. Lactic Acid 2.1 and reports vomiting - Give IV fluids. Patient is hypokalemic possible from GI losses and to receive oral potassium. Antiemetics for nausea and vomiting. Patient reports that she sometimes feels palpitations - may have worsened due to recent viral vs bacterial infections. Monitor on telemetry. Patient has history of hypothyroidism and to continue home dose Levothyroxine Check TSH. Level of Care Telemetry Resuscitation Status FULL RESUSCITATION VTE Prophylaxis VTE Risk Assessment Done? Y/N: Yes Risk Level: Moderate Given or contraindicated: Enoxaparin (Lovenox)SQ Additional Copies To Kiki Ferraro D.O.
[2017-03-13] MEDS: GUAIFENESIN/CODEINE 100MG/10MG 5ML UDC PO PRN (22:51)
[2017-03-13] MEDS: OXYCODONE/ACETAMINOPHEN 5-325 TAB PO PRN (22:51)
[2017-03-14] VITALS (10 sets, daily range): BP systolic 102–110; BP diastolic 60–69; PULSE 74–86; TEMP 36.5–37; O2SAT 95–100; Ht 157.5 cm; Wt 63.1 kg
[2017-03-14] MEDS: SODIUM CHLORIDE 0.9% 1000ML 1,000 ML IV SCH ×3 (01:11→21:10)
[2017-03-14] MEDS: GUAIFENESIN/CODEINE 100MG/10MG 5ML UDC PO PRN ×3 (04:49→21:06)
[2017-03-14] MEDS ORDERED: PNEUMOCOCCAL POLYSACCHARIDES 25 MCG/0.5 ML VIAL/SYR IM. ONE (05:15)
[2017-03-14] MEDS ORDERED: INFLUENZA ADMINISTRATION CHARGE ONE (05:15)
[2017-03-14] MEDS ORDERED: PNEUMOCOCCAL ADMINISTRATION CHARGE ONE (05:15)
[2017-03-14] MEDS ORDERED: INFLUENZA VIRUS QUAD VACCINE 0.5 ML SYR IM. ONE (05:15)
[2017-03-14 05:28] LABS: BASO % 0.5 %; BASO ABS # 0.02 K/uL (0-0.2); HEMATOCRIT 31.1 % (37-47); HEMOGLOBIN 9.9 g/dL (12.0-16.0); IG# 0.01 K/uL (0.00-0.02); LYMPH % 28.4 %; LYMPH ABS # 1.18 K/uL (1.2-3.4); MEAN CELL VOLUME 84.5 fL (80-100); MEAN CORPUSCULAR HEMOGLOBIN 26.9 pg (25-34); MEAN CORPUSCULAR HGB CONC 31.8 g/dl (32-36); MEAN PLATELET VOLUME 9.1 fL (7.4-10.4); NEUT % 58.9 %; NEUT ABS # 2.44 K/uL (1.4-6.5); PLATELET COUNT 149 K/uL (130-400); WHITE BLOOD COUNT 4.15 K/uL (4.8-10.8)
[2017-03-14 05:50] LABS: CALCIUM 7.3 mg/dl (8.5-10.1); CREATININE 0.71 mg/dl (0.60-1.20); POTASSIUM 3.5 mmol/L (3.5-5.1)
[2017-03-14] MEDS: OXYCODONE/ACETAMINOPHEN 5-325 TAB PO PRN ×2 (06:22→14:25)
[2017-03-14] MEDS: LEVOTHYROXINE 75 MCG TAB PO SCH (06:22)
[2017-03-14] MEDS: ALBUT/IPRATROP 3MG/0.5MG NEB 3 ML VIAL INH SCH ×4 (07:33→19:09)
[2017-03-14] MEDS: PANTOprazole SOD 40 MG TAB PO SCH ×2 (08:03→21:08)
[2017-03-14] MEDS: LORAZEPAM 0.5 MG TAB PO SCH ×3 (08:03→21:05)
[2017-03-14] MEDS: ASPIRIN 81 MG ECTAB PO SCH (08:03)
[2017-03-14] MEDS: OSELTAMIVIR PHOSPHATE 75 MG CAP PO SCH ×2 (08:03→21:10)
[2017-03-14] MEDS: LISINOPRIL 20 MG TAB PO SCH (08:03)
[2017-03-14] MEDS: ENOXAPARIN 40 MG/0.4 ML SYR SC SCH ×2 (08:04→08:09)
[2017-03-14] MEDS: MYCOPHENOLATE MOFETIL 250 MG CAP (CELLCEPT) PO SCH ×2 (08:04→21:07)
[2017-03-14] MEDS ORDERED: AMOXICILLIN 500 MG CAP PO SCH (09:00)
--- NOTE | 2017-03-14 09:48 | DIAGNOSTIC IMAGING REPORT ---
CHEST 2 VIEWS ROUTINE CLINICAL HISTORY: cough, influenza COMPARISON STUDY: 03/13/2017 FINDINGS: The cardiac and mediastinal contours remain stable. There is no failure. There is no lobar consolidation. Minor left basilar opacities are likely atelectatic. There are no significant pleural effusions.[ IMPRESSION: Minor basilar opacities, likely atelectatic. No evidence of focal pulmonary consolidation Electronically signed by: Ari Cowan M.D. 03/14/2017 9:47 AM Dictated Date/Time: 03/14/2017 9:46 AM
[2017-03-14] MEDS: SODIUM CHLORIDE 0.65% NA SOLN 45 ML (OCEAN) SCH ×3 (11:24→21:11)
[2017-03-14] MEDS: CYCLOBENZAPRINE HCL 10 MG TAB PO PRN ×2 (16:41→21:05)
[2017-03-14] MEDS: AMOXICILLIN/CLAVULANATE TAB 875 MG TAB PO SCH (16:42)
[2017-03-14] MEDS: HYDROXYCHLOROQUINE SULFATE 200 MG TAB PO SCH (21:09)
--- NOTE | 2017-03-14 23:02 | Progress Note ---
Medicine Progress Note Date & Time of Visit: Mar 14, 2017 at 10:36 . Subjective CC: Follow-up visit for influenza. HPI: No fever since last night. Persistent malaise, sinus pressure, nonproductive cough. Has chest wall pain with coughing. No SOB. ROS: General- as noted above in HPI Resp- as noted above in HPI Cardiac- chest wall pain GI- no nausea, no vomiting, no diarrhea - no dysuria . Objective Last 8 Hrs Date Time Temp Pulse Resp B/P (MAP) Pulse Ox O2 Delivery O2 Flow Rate FiO2 03/14/17 08:02 36.7 86 18 103/60 (74) 99 03/14/17 08:00 Room Air 03/14/17 07:05 86 18 97 Room Air 03/14/17 04:00 Room Air 03/14/17 03:46 37.0 77 16 102/62 (75) 98 Room Air Physical Exam: General- appears to be ill, but no acute distress Lungs- few scattered rhonchi; no respiratory distress Heart- RRR Abdomen- + BS, soft, nontender Extremities- no pretibial edema or calf tenderness Neuro- alert Skin- warm & dry . Laboratory Results: Last 24 Hours Test 03/13/17 18:00 03/13/17 18:30 03/13/17 18:50 03/13/17 19:59 Influenza Type A Antigen POS for Influ A Influenza Type B Antigen Neg for Influ B White Blood Count 8.36 K/uL Red Blood Count 4.15 M/uL Hemoglobin 11.8 g/dL Hematocrit 35.1 % Mean Corpuscular Volume 84.6 fL Mean Corpuscular Hemoglobin 28.4 pg Mean Corpuscular Hemoglobin Concent 33.6 g/dl Platelet Count 188 K/uL Mean Platelet Volume 9.0 fL Neutrophils (%) (Auto) 83.6 % Lymphocytes (%) (Auto) 8.9 % Monocytes (%) (Auto) 6.9 % Eosinophils (%) (Auto) 0.0 % Basophils (%) (Auto) 0.4 % Neutrophils # (Auto) 6.99 K/uL Lymphocytes # (Auto) 0.74 K/uL Monocytes # (Auto) 0.58 K/uL Eosinophils # (Auto) 0.00 K/uL Basophils # (Auto) 0.03 K/uL RDW Standard Deviation 46.2 fL RDW Coefficient of Variation 14.9 % Immature Granulocyte % (Auto) 0.2 % Immature Granulocyte # (Auto) 0.02 K/uL Sodium Level 134 mmol/L Potassium Level 3.3 mmol/L Chloride Level 101 mmol/L Carbon Dioxide Level 24 mmol/L Anion Gap 9.0 mmol/L Blood Urea Nitrogen 3 mg/dl Creatinine 0.81 mg/dl Est Creatinine Clear Calc Drug Dose 75.7 ml/min Estimated GFR () 100.9 Estimated GFR (Non- 87.1 BUN/Creatinine Ratio 3.5 Random Glucose 101 mg/dl Calcium Level 8.4 mg/dl Total Bilirubin 0.4 mg/dl Aspartate Amino Transf (AST/SGOT) 20 U/L Alanine Aminotransferase (ALT/SGPT) 18 U/L Alkaline Phosphatase 89 U/L Total Protein 6.8 gm/dl Albumin 3.5 gm/dl Globulin 3.3 gm/dl Albumin/Globulin Ratio 1.1 Lactic Acid Level 2.1 mmol/L Urine Color YELLOW Urine Appearance CLEAR Urine pH 5.5 Urine Specific [place] 1.007 Urine Protein NEG Urine Glucose (UA) NEG Urine Ketones NEG Urine Occult Blood NEG Urine Nitrite NEG Urine Bilirubin NEG Urine Urobilinogen NEG Urine Leukocyte Esterase NEG Test 03/14/17 05:16 03/14/17 05:17 Lactic Acid Level 1.5 mmol/L White Blood Count 4.15 K/uL Red Blood Count 3.68 M/uL Hemoglobin 9.9 g/dL Hematocrit 31.1 % Mean Corpuscular Volume 84.5 fL Mean Corpuscular Hemoglobin 26.9 pg Mean Corpuscular Hemoglobin Concent 31.8 g/dl Platelet Count 149 K/uL Mean Platelet Volume 9.1 fL Neutrophils (%) (Auto) 58.9 % Lymphocytes (%) (Auto) 28.4 % Monocytes (%) (Auto) 12.0 % Eosinophils (%) (Auto) 0.0 % Basophils (%) (Auto) 0.5 % Neutrophils # (Auto) 2.44 K/uL Lymphocytes # (Auto) 1.18 K/uL Monocytes # (Auto) 0.50 K/uL Eosinophils # (Auto) 0.00 K/uL Basophils # (Auto) 0.02 K/uL RDW Standard Deviation 47.0 fL RDW Coefficient of Variation 15.0 % Immature Granulocyte % (Auto) 0.2 % Immature Granulocyte # (Auto) 0.01 K/uL Prothrombin Time 10.3 SECONDS Prothromb Time International Ratio 1.0 Sodium Level 138 mmol/L Potassium Level 3.5 mmol/L Chloride Level 110 mmol/L Carbon Dioxide Level 24 mmol/L Anion Gap 4.0 mmol/L Blood Urea Nitrogen 5 mg/dl Creatinine 0.71 mg/dl Est Creatinine Clear Calc Drug Dose 86.4 ml/min Estimated GFR () 118.4 Estimated GFR (Non- 102.1 BUN/Creatinine Ratio 7.1 Random Glucose 99 mg/dl Calcium Level 7.3 mg/dl Thyroid Stimulating Hormone (TSH) 2.390 uIu/ml Date/Time Source Procedure Growth Status 03/13/17 18:41 Blood Blood Culture Pending Received 03/13/17 18:30 Blood Blood Culture Pending Received 03/13/17 18:35 Throat Group A Streptococcus Screen - Final SPECIMEN NEGATIVE FOR GROUP A BETA ST... Resulted 03/13/17 18:35 Throat Group A Streptococcus Screen (PAUL) Pending Resulted Assessment & Plan INFLUENZA A Continue oseltamivir. ASTHMA Continue bronchodilators. SINUSITIS Change Rx from amoxicillin to amoxicillin / clavulanic acid for better coverage. Consider imaging if no improvement. HYPOKALEMIA K 3.3 at time of admission. Replace. Follow. SLE Continue hydroxychloroquine and mycophenolate mofetil with caution. FIBROMYALGIA Continue usual regimen. VTE PROPHYLAXIS SQ enoxaparin. Ambulate. DISPOSITION Expected discharge to home. Family Medicine follow-up with Dr. Kiki Ferraro. . Current Inpatient Medications: Current Inpatient Medications Medications (Trade) Dose Ordered Sig/Tayler Route Start Time Stop Time Status Last Admin Dose Admin Enoxaparin Sodium (Lovenox Inj) 40 mg Q24H SC 03/14/17 09:00 04/13/17 08:59 Acetaminophen (Tylenol Tab) 650 mg Q4H PRN PO 03/13/17 21:15 04/12/17 21:14 Magnesium Hydroxide (Milk Of Magnesia Susp) 30 ml Q12H PRN PO 03/13/17 21:15 04/12/17 21:14 Ondansetron HCl (Zofran Inj) 4 mg Q6H PRN IV 03/13/17 21:15 04/12/17 21:14 Nitroglycerin (Nitrostat Tab) 0.4 mg UD PRN SL 03/13/17 21:15 04/12/17 21:14 Oseltamivir Phosphate (Tamiflu Cap) 75 mg BID PO 03/14/17 09:00 03/19/17 08:59 03/14/17 08:03 75 MG Albuterol/ Ipratropium (Duoneb) 3 ml QIDR INH 03/13/17 21:30 04/12/17 21:29 03/14/17 07:33 3 ML Sodium Chloride 1,000 ml @ 100 mls/hr Q10H IV 03/14/17 01:00 04/13/17 00:59 03/14/17 01:11 100 MLS/HR Codeine Phosphate/ Guaifenesin (Robitussin-AC Sugar Free Syrup) 5 ml Q6H PRN PO 03/13/17 21:30 04/12/17 21:29 03/14/17 04:49 5 ML Aspirin (Ecotrin Tab) 81 mg DAILY PO 03/14/17 09:00 04/13/17 08:59 03/14/17 08:03 81 MG Cyclobenzaprine HCl (Flexeril Tab) 10 mg TID PRN PO 03/13/17 21:30 04/12/17 21:29 Hydroxychloroquine Sulfate (Plaquenil Tab) 200 mg HS PO 03/14/17 21:00 04/13/17 20:59 Levothyroxine Sodium (Synthroid Tab) 75 mcg DAILYBB PO 03/14/17 06:00 04/13/17 05:59 03/14/17 06:22 75 MCG Lisinopril (Zestril Tab) 20 mg DAILY PO 03/14/17 09:00 04/13/17 08:59 03/14/17 08:03 20 MG Lorazepam (Ativan Tab) 0.5 mg TID PO 03/14/17 09:00 04/13/17 08:59 03/14/17 08:03 0.5 MG Oxycodone/ Acetaminophen (Percocet 5-325mg Tab) 1 tab Q8 PRN PO 03/13/17 21:30 03/27/17 21:29 03/14/17 06:22 1 TAB Ranitidine HCl (zANTac TAB) 150 mg BID PRN PO 03/13/17 21:30 04/12/17 21:29 Mycophenolate Mofetil (Cellcept Cap) 1,000 mg BID PO 03/14/17 09:00 04/13/17 08:59 03/14/17 08:04 1,000 MG Pantoprazole Sodium (Protonix Tab) 40 mg BID PO 03/14/17 09:00 04/13/17 08:59 03/14/17 08:03 40 MG Miscellaneous (Iv Fluids Completed) 1 ea PRN PRN N/A 03/13/17 21:45 03/13/18 21:44 Amoxicillin/ Clavulanate Potassium (Augmentin Tab) 875 mg BIDM PO 03/14/17 16:45 03/24/17 16:44 Sodium Chloride ([place] Nasal [place]) 4 sprays QID NA 03/14/17 13:00 04/13/17 12:59
[2017-03-15] VITALS (7 sets, daily range): BP systolic 100–109; BP diastolic 58–68; PULSE 78–89; TEMP 36.7–36.9; O2SAT 93–98
[2017-03-15] MEDS: LEVOTHYROXINE 75 MCG TAB PO SCH (06:44)
[2017-03-15] MEDS: ALBUT/IPRATROP 3MG/0.5MG NEB 3 ML VIAL INH SCH ×4 (07:20→19:19)
[2017-03-15] MEDS: OXYCODONE/ACETAMINOPHEN 5-325 TAB PO PRN ×2 (07:38→23:30)
[2017-03-15] MEDS: GUAIFENESIN/CODEINE 100MG/10MG 5ML UDC PO PRN ×2 (07:38→16:54)
[2017-03-15] MEDS: LORAZEPAM 0.5 MG TAB PO SCH ×3 (07:38→20:35)
[2017-03-15] MEDS: ASPIRIN 81 MG ECTAB PO SCH (07:39)
[2017-03-15] MEDS: LISINOPRIL 20 MG TAB PO SCH (07:39)
[2017-03-15] MEDS: OSELTAMIVIR PHOSPHATE 75 MG CAP PO SCH ×2 (07:39→20:36)
[2017-03-15] MEDS: AMOXICILLIN/CLAVULANATE TAB 875 MG TAB PO SCH ×2 (07:40→16:57)
[2017-03-15] MEDS: PANTOprazole SOD 40 MG TAB PO SCH ×2 (07:40→20:38)
[2017-03-15] MEDS: MYCOPHENOLATE MOFETIL 250 MG CAP (CELLCEPT) PO SCH ×2 (07:40→20:39)
[2017-03-15] MEDS: SODIUM CHLORIDE 0.65% NA SOLN 45 ML (OCEAN) SCH ×4 (07:40→20:35)
[2017-03-15] MEDS: SODIUM CHLORIDE 0.9% 1000ML 1,000 ML IV SCH ×2 (07:40→16:57)
[2017-03-15] MEDS: ENOXAPARIN 40 MG/0.4 ML SYR SC SCH (07:44)
[2017-03-15] MEDS ORDERED: METHYLPREDNISOLONE IV 40 MG in SYRINGE 0 ML IV ONE (16:45)
--- NOTE | 2017-03-15 19:40 | Progress Note ---
Medicine Progress Note Date & Time of Visit: Mar 15, 2017 at ~ 16:00 . Subjective CC: Follow-up visit for influenza. HPI: No fever x 2 nights. Tired. Persistent sinus pressure, nonproductive cough. Notes some wheezing. Persistent chest wall pain with coughing. No SOB. ROS: General- as noted above in HPI Resp- as noted above in HPI Cardiac- chest wall pain GI- no nausea, no vomiting, no diarrhea - no dysuria . Objective Last 8 Hrs Date Time Temp Pulse Resp B/P (MAP) Pulse Ox O2 Delivery O2 Flow Rate FiO2 03/15/17 19:19 80 18 94 Room Air 03/15/17 16:00 Room Air 03/15/17 15:43 36.7 86 18 100/63 (75) 98 Room Air 03/15/17 15:34 82 18 94 Room Air Physical Exam: General- lying in bed, no acute distress Lungs- few scattered rhonchi; mild-moderate wheezing, no respiratory distress Heart- RRR Abdomen- + BS, soft, nontender Extremities- no pretibial edema or calf tenderness Neuro- alert Skin- warm & dry . Assessment & Plan INFLUENZA A Continue oseltamivir. ASTHMA Continue bronchodilators. Add steroids- IV methylprednisolone x 1, then prednisone. SINUSITIS Changed Rx from amoxicillin to amoxicillin / clavulanic acid for better coverage. Consider imaging if no improvement. HYPOKALEMIA K 3.3 at time of admission. Replace. Follow. SLE Continue hydroxychloroquine and mycophenolate mofetil with caution. FIBROMYALGIA Continue usual regimen. VTE PROPHYLAXIS SQ enoxaparin. Ambulate. DISPOSITION Expected discharge to home. Family Medicine follow-up with Dr. Kiki Ferraro. . Current Inpatient Medications: Current Inpatient Medications Medications (Trade) Dose Ordered Sig/Tayler Route Start Time Stop Time Status Last Admin Dose Admin Enoxaparin Sodium (Lovenox Inj) 40 mg Q24H SC 03/14/17 09:00 04/13/17 08:59 Acetaminophen (Tylenol Tab) 650 mg Q4H PRN PO 03/13/17 21:15 04/12/17 21:14 Magnesium Hydroxide (Milk Of Magnesia Susp) 30 ml Q12H PRN PO 03/13/17 21:15 04/12/17 21:14 Ondansetron HCl (Zofran Inj) 4 mg Q6H PRN IV 03/13/17 21:15 04/12/17 21:14 03/15/17 09:04 4 MG Nitroglycerin (Nitrostat Tab) 0.4 mg UD PRN SL 03/13/17 21:15 04/12/17 21:14 Oseltamivir Phosphate (Tamiflu Cap) 75 mg BID PO 03/14/17 09:00 03/19/17 08:59 03/15/17 07:39 75 MG Albuterol/ Ipratropium (Duoneb) 3 ml QIDR INH 03/13/17 21:30 04/12/17 21:29 03/15/17 19:19 3 ML Sodium Chloride 1,000 ml @ 100 mls/hr Q10H IV 03/14/17 01:00 04/13/17 00:59 03/15/17 16:57 100 MLS/HR Codeine Phosphate/ Guaifenesin (Robitussin-AC Sugar Free Syrup) 5 ml Q6H PRN PO 03/13/17 21:30 04/12/17 21:29 03/15/17 16:54 5 ML Aspirin (Ecotrin Tab) 81 mg DAILY PO 03/14/17 09:00 04/13/17 08:59 03/15/17 07:39 81 MG Cyclobenzaprine HCl (Flexeril Tab) 10 mg TID PRN PO 03/13/17 21:30 04/12/17 21:29 03/14/17 21:05 10 MG Hydroxychloroquine Sulfate (Plaquenil Tab) 200 mg HS PO 03/14/17 21:00 04/13/17 20:59 03/14/17 21:09 200 MG Levothyroxine Sodium (Synthroid Tab) 75 mcg DAILYBB PO 03/14/17 06:00 04/13/17 05:59 03/15/17 06:44 75 MCG Lisinopril (Zestril Tab) 20 mg DAILY PO 03/14/17 09:00 04/13/17 08:59 03/15/17 07:39 20 MG Lorazepam (Ativan Tab) 0.5 mg TID PO 03/14/17 09:00 04/13/17 08:59 03/15/17 13:37 0.5 MG Oxycodone/ Acetaminophen (Percocet 5-325mg Tab) 1 tab Q8 PRN PO 03/13/17 21:30 03/27/17 21:29 03/15/17 07:38 1 TAB Ranitidine HCl (zANTac TAB) 150 mg BID PRN PO 03/13/17 21:30 04/12/17 21:29 Mycophenolate Mofetil (Cellcept Cap) 1,000 mg BID PO 03/14/17 09:00 04/13/17 08:59 03/15/17 07:40 1,000 MG Pantoprazole Sodium (Protonix Tab) 40 mg BID PO 03/14/17 09:00 04/13/17 08:59 03/15/17 07:40 40 MG Miscellaneous (Iv Fluids Completed) 1 ea PRN PRN N/A 03/13/17 21:45 03/13/18 21:44 Amoxicillin/ Clavulanate Potassium (Augmentin Tab) 875 mg BIDM PO 03/14/17 16:45 03/24/17 16:44 03/15/17 16:57 875 MG Sodium Chloride ([place] Nasal [place]) 4 sprays QID NA 03/14/17 12:00 04/13/17 12:59 03/15/17 16:57 4 SPRAYS Prednisone (PredniSONE TAB) 40 mg DAILY PO 03/16/17 08:00 04/15/17 07:59
[2017-03-15] MEDS: HYDROXYCHLOROQUINE SULFATE 200 MG TAB PO SCH (20:36)
[2017-03-16] VITALS (7 sets, daily range): BP systolic 100–135; BP diastolic 61–73; PULSE 76–85; TEMP 36.3–36.7; O2SAT 96–100
[2017-03-16] MEDS: GUAIFENESIN/CODEINE 100MG/10MG 5ML UDC PO PRN ×2 (00:35→07:41)
[2017-03-16] MEDS: SODIUM CHLORIDE 0.9% 1000ML 1,000 ML IV SCH (03:12)
[2017-03-16] MEDS: LEVOTHYROXINE 75 MCG TAB PO SCH (05:59)
[2017-03-16] MEDS: LORAZEPAM 0.5 MG TAB PO SCH ×2 (07:41→13:51)
[2017-03-16] MEDS: ASPIRIN 81 MG ECTAB PO SCH (07:42)
[2017-03-16] MEDS: LISINOPRIL 20 MG TAB PO SCH (07:42)
[2017-03-16] MEDS: PANTOprazole SOD 40 MG TAB PO SCH (07:42)
[2017-03-16] MEDS: MYCOPHENOLATE MOFETIL 250 MG CAP (CELLCEPT) PO SCH (07:43)
[2017-03-16] MEDS: SODIUM CHLORIDE 0.65% NA SOLN 45 ML (OCEAN) SCH ×2 (07:43→12:54)
[2017-03-16] MEDS: AMOXICILLIN/CLAVULANATE TAB 875 MG TAB PO SCH (07:43)
[2017-03-16] MEDS: OSELTAMIVIR PHOSPHATE 75 MG CAP PO SCH (07:43)
[2017-03-16] MEDS: ENOXAPARIN 40 MG/0.4 ML SYR SC SCH (07:44)
[2017-03-16 07:48] LABS: HEMATOCRIT 28.2 % (37-47); HEMOGLOBIN 9.4 g/dL (12.0-16.0); LYMPH ABS # 0.98 K/uL (1.2-3.4); MEAN CELL VOLUME 84.4 fL (80-100); MEAN CORPUSCULAR HEMOGLOBIN 28.1 pg (25-34); MEAN CORPUSCULAR HGB CONC 33.3 g/dl (32-36); MEAN PLATELET VOLUME 9.1 fL (7.4-10.4); MONO % 11.6 %; MONO ABS # 0.42 K/uL (0.11-0.59); NEUT % 61.4 %; NEUT ABS # 2.23 K/uL (1.4-6.5); PLATELET COUNT 151 K/uL (130-400); RED CELL DISTRIBUTION WIDTH CV 15.2 % (11.5-14.5); RED CELL DISTRIBUTION WIDTH SD 47.4 fL (36.4-46.3); WHITE BLOOD COUNT 3.63 K/uL (4.8-10.8)
[2017-03-16] MEDS: ALBUT/IPRATROP 3MG/0.5MG NEB 3 ML VIAL INH SCH ×3 (07:50→15:34)
[2017-03-16 08:24] LABS: CALCIUM 7.4 mg/dl (8.5-10.1); CREATININE 0.53 mg/dl (0.60-1.20); POTASSIUM 3.9 mmol/L (3.5-5.1)
[2017-03-16] MEDS ORDERED: TMF75 PO (15:04)
[2017-03-16] MEDS ORDERED: PRD10 PO (15:04)
[2017-03-16] MEDS ORDERED: AMOX1TAB43 PO (15:04)
--- NOTE | 2017-03-16 15:07 | Discharge Instructions ---
Discharge Instructions Date of Service Mar 16, 2017. Admission Reason for Admission: influenza . Discharge Discharge Diagnosis / Problem: influenza Discharge Goals Goal(s): Decrease discomfort, Improve disease control Activity Recommendations Activity Limitations: resume your previous activity . Instructions / Follow-Up Instructions / Follow-Up APPOINTMENTS: FAMILY MEDICINE 03/20/2017 10:30 AM Kiki Ferraro, DO OTHER INSTRUCTIONS: Take prednisone 40 mg daily for 3 days for wheezing. Take amoxicillin / clavulanic acid (Augmentin) twice a day with food until gone. Take oseltamivir phosphate (Tamiflu) twice a day until gone. Seek medical attention if you have: * temperature above 101 * chest pain or trouble breathing * abdominal pain, nausea, vomiting * diarrhea, dark stools or bloody stools * any unanswered questions or concerns Call 911 if symptoms are severe. Call if you have any questions or problems. My cell # is [phone]. You can also reach a [facility] hospitalist on duty at [facility] 24 hours a day by calling [phone]. Please take good care of yourself. Armond Greenberg . Current Hospital Diet Patient's current hospital diet: Regular Diet Discharge Diet Recommended Diet: Regular Diet Procedures Procedures Performed: Chest x-ray- no pneumonia. Flu test- positive. Pending Studies Studies pending at discharge: no Medical Emergencies . Who to Call and When: Medical Emergencies: If at any time you feel your situation is an emergency, please call 911 immediately. . Non-Emergent Contact Non-Emergency issues call your: Primary Care Provider, Hospital Doctor . . "Provider Documentation" section prepared by Armond Greenberg. . VTE Core Measure Inpt VTE Proph given/why not?: Enoxaparin (Lovenox)SQ
--- NOTE | 2017-03-16 23:31 | Progress Note ---
Medicine Progress Note Date & Time of Visit: Mar 16, 2017 at 11:56 . Subjective Doing well. No fever. Sinus congestion, cough improved. No nausea, vomiting, diarrhea. Ambulating. . Objective Last 8 Hrs Date Time Temp Pulse Resp B/P (MAP) Pulse Ox O2 Delivery O2 Flow Rate FiO2 03/16/17 11:30 78 18 100 Room Air 03/16/17 08:00 Room Air 03/16/17 07:50 85 18 97 Room Air 03/16/17 07:43 36.3 76 16 100/61 (74) 97 Physical Exam: General- no distress Lungs- clear, minimal wheezing, no respiratory distress Heart- RRR Abdomen- + BS, soft, nontender Extremities- no pretibial edema or calf tenderness Neuro- alert Skin- warm & dry . Laboratory Results: Last 24 Hours Test 03/16/17 07:16 White Blood Count 3.63 K/uL Red Blood Count 3.34 M/uL Hemoglobin 9.4 g/dL Hematocrit 28.2 % Mean Corpuscular Volume 84.4 fL Mean Corpuscular Hemoglobin 28.1 pg Mean Corpuscular Hemoglobin Concent 33.3 g/dl Platelet Count 151 K/uL Mean Platelet Volume 9.1 fL Neutrophils (%) (Auto) 61.4 % Lymphocytes (%) (Auto) 27.0 % Monocytes (%) (Auto) 11.6 % Eosinophils (%) (Auto) 0.0 % Basophils (%) (Auto) 0.0 % Neutrophils # (Auto) 2.23 K/uL Lymphocytes # (Auto) 0.98 K/uL Monocytes # (Auto) 0.42 K/uL Eosinophils # (Auto) 0.00 K/uL Basophils # (Auto) 0.00 K/uL RDW Standard Deviation 47.4 fL RDW Coefficient of Variation 15.2 % Immature Granulocyte % (Auto) 0.0 % Immature Granulocyte # (Auto) 0.00 K/uL Sodium Level 140 mmol/L Potassium Level 3.9 mmol/L Chloride Level 111 mmol/L Carbon Dioxide Level 21 mmol/L Anion Gap 8.0 mmol/L Blood Urea Nitrogen 3 mg/dl Creatinine 0.53 mg/dl Est Creatinine Clear Calc Drug Dose 115.8 ml/min Estimated GFR () 132.0 Estimated GFR (Non- 113.9 BUN/Creatinine Ratio 6.4 Random Glucose 107 mg/dl Calcium Level 7.4 mg/dl Assessment & Plan INFLUENZA A Continue oseltamivir to complete 5 day course of therapy. ASTHMA Continue bronchodilators. Add steroids- IV methylprednisolone x 1, then prednisone. Discharge on prednisone 40 mg daily to complete 5 day course of therapy. SINUSITIS Changed Rx from amoxicillin to amoxicillin / clavulanic acid for better coverage. Discharge on Augmentin to complete 7 day course of therapy. HYPOKALEMIA K 3.3 at time of admission. Replaced. K 3.9 day of discharge SLE Continue hydroxychloroquine and mycophenolate mofetil with caution. FIBROMYALGIA Continue usual regimen. VTE PROPHYLAXIS SQ enoxaparin. Ambulate. DISPOSITION Discharge to home. Family Medicine follow-up with Dr. Kiki Ferraro. Rheumatology follow-up with Dr. Gutierrez. . Current Inpatient Medications: Current Inpatient Medications Medications (Trade) Dose Ordered Sig/Tayler Route Start Time Stop Time Status Last Admin Dose Admin Enoxaparin Sodium (Lovenox Inj) 40 mg Q24H SC 03/14/17 09:00 04/13/17 08:59 Acetaminophen (Tylenol Tab) 650 mg Q4H PRN PO 03/13/17 21:15 04/12/17 21:14 03/16/17 07:42 650 MG Magnesium Hydroxide (Milk Of Magnesia Susp) 30 ml Q12H PRN PO 03/13/17 21:15 04/12/17 21:14 Ondansetron HCl (Zofran Inj) 4 mg Q6H PRN IV 03/13/17 21:15 04/12/17 21:14 03/15/17 09:04 4 MG Nitroglycerin (Nitrostat Tab) 0.4 mg UD PRN SL 03/13/17 21:15 04/12/17 21:14 Oseltamivir Phosphate (Tamiflu Cap) 75 mg BID PO 03/14/17 09:00 03/19/17 08:59 03/16/17 07:43 75 MG Albuterol/ Ipratropium (Duoneb) 3 ml QIDR INH 03/13/17 21:30 04/12/17 21:29 03/16/17 11:30 3 ML Codeine Phosphate/ Guaifenesin (Robitussin-AC Sugar Free Syrup) 5 ml Q6H PRN PO 03/13/17 21:30 04/12/17 21:29 03/16/17 07:41 5 ML Aspirin (Ecotrin Tab) 81 mg DAILY PO 03/14/17 09:00 04/13/17 08:59 03/16/17 07:42 81 MG Cyclobenzaprine HCl (Flexeril Tab) 10 mg TID PRN PO 03/13/17 21:30 04/12/17 21:29 03/14/17 21:05 10 MG Hydroxychloroquine Sulfate (Plaquenil Tab) 200 mg HS PO 03/14/17 21:00 04/13/17 20:59 03/15/17 20:36 200 MG Levothyroxine Sodium (Synthroid Tab) 75 mcg DAILYBB PO 03/14/17 06:00 04/13/17 05:59 03/16/17 05:59 75 MCG Lisinopril (Zestril Tab) 20 mg DAILY PO 03/14/17 09:00 04/13/17 08:59 03/16/17 07:42 20 MG Lorazepam (Ativan Tab) 0.5 mg TID PO 03/14/17 09:00 04/13/17 08:59 03/16/17 07:41 0.5 MG Oxycodone/ Acetaminophen (Percocet 5-325mg Tab) 1 tab Q8 PRN PO 03/13/17 21:30 03/27/17 21:29 03/15/17 23:30 1 TAB Ranitidine HCl (zANTac TAB) 150 mg BID PRN PO 03/13/17 21:30 04/12/17 21:29 Mycophenolate Mofetil (Cellcept Cap) 1,000 mg BID PO 03/14/17 09:00 04/13/17 08:59 03/16/17 07:43 1,000 MG Pantoprazole Sodium (Protonix Tab) 40 mg BID PO 03/14/17 09:00 04/13/17 08:59 03/16/17 07:42 40 MG Miscellaneous (Iv Fluids Completed) 1 ea PRN PRN N/A 03/13/17 21:45 03/13/18 21:44 03/16/17 07:40 1 EA Amoxicillin/ Clavulanate Potassium (Augmentin Tab) 875 mg BIDM PO 03/14/17 16:45 03/24/17 16:44 03/16/17 07:43 875 MG Sodium Chloride ([place] Nasal [place]) 4 sprays QID NA 03/14/17 12:00 04/13/17 12:59 03/16/17 07:43 4 SPRAYS Prednisone (PredniSONE TAB) 40 mg DAILY PO 03/16/17 08:00 04/15/17 07:59 03/16/17 07:43 40 MG
--- NOTE | 2017-03-17 08:07 | Discharge Summary ---
Discharge Summary Date of Service Mar 17, 2017. Discharge Summary Admission Date: Mar 13, 2017 at 21:16 Discharge Date: Mar 16, 2017 Discharge Disposition: Home Principal Diagnosis: influenza A OTHER ACUTE DIAGNOSES: sinusitis hypokalemia . Secondary Diagnoses/Problems: Chronic and Resolved Medical Problems: (1) Asthma Status: Chronic (2) Fibromyalgia Status: Chronic (3) GERD (gastroesophageal reflux disease) Status: Chronic (4) Hypothyroidism Status: Chronic (7) Migraine headache Status: Chronic (8) Raynaud phenomenon Status: Chronic (9) Systemic lupus erythematosus Status: Chronic Surgical Problems: (1) Fistula Status: Resolved (3) Status post tonsillectomy Status: Chronic . Medication Reconciliation New Medications: Prednisone (Prednisone) 10 Mg Tab 40 MG PO DAILY, #12 TAB Next dose Friday03/17/17. Amoxicillin & Pot Clavulanate (Amoxicillin/Clavulanate P) 1 Tab Tab 875 MG PO BIDM, #9 TAB Take with food. Next dose with supper 03/16/17. Oseltamivir Phosphate (Tamiflu) 75 Mg Cap 75 MG PO BID, #5 CAP Next dose evening 03/16/17. Continued Medications: Albuterol Hfa (Ventolin Hfa) 200 Puffs/53832 Mcg Aers 2 PUFFS INH QID PRN for SOB/Wheezing Aspirin (Aspirin 81) 81 Mg Tab 1 TAB PO DAILY Cyclobenzaprine HCl (Cyclobenzaprine HCl) 10 Mg Tab 10 MG PO TID PRN for Muscle Spasms Dextromethorphan-Phenylephrine (Vicks Dayquil Cold & Flu) 1 Cap Cap 1 CAP PO DIRECTED PRN for COUGH/COLD Hydroxychloroquine Sulfate (Hydroxychloroquine Sulfat) 200 Mg Tab 200 MG PO HS Levothyroxine Sodium (Levothyroxine Sodium) 75 Mcg Tab 75 MCG PO DAILY Lisinopril (Lisinopril) 40 Mg Tab 20 MG PO DAILY Lorazepam (Ativan) 0.5 Mg Tab 0.5 MG PO TID for Anxiety, TAB Mycophenolate Mofetil (Mycophenolate Mofetil) 500 Mg Tab 1000 MG PO BID Omeprazole (Prilosec) 20 Mg Cap 20 MG PO BID Ondasetron Odt (Zofran Odt) 4 Mg Tab 4 MG SL Q8 for Nausea, #6 TAB Oxycodone/Acetaminophen 5MG/325MG (Percocet 5MG/325MG) Tab 1 TABLET PO Q8 PRN for Moderate Pain Ranitidine HCl (Ranitidine HCl) 150 Mg Tab 150 MG PO BID PRN for Heartburn Admission Information HPI (per Admitting provider): Pt is 47 y/o F with PMH SLE, hypothyroidism, GERD, fibromyalgia, Raynaud's, lupus nephritis presented to ER with c/o fever, myalgias, cough x 3 days. Pt states 3 days ago started with rhinorrhea, sore throat, cough. Yesterday fever 102F and diffuse myalgias and arthralgias. C/O bilateral ear pressure. Reports today had 4 episodes post-tussive emesis. She reports hx SOB and wheezing with URI's and has albuterol inhaler to use prn, however pt didn't know where it was at so could not use it past couple of days. States doesn't feel increased SOB but cough is bothering her. Reports chronic intermittent BAUTISTA's and chronic neck and back pain. Denies any worsening and denies current BAUTISTA. Tried OTC cold medicine without much relief. Reports did not receive influenza vaccine this season. Daughter starting with URI symptoms. Denies recent travel, dizziness, syncope, vision changes, diarrhea, constipation, hematemesis, hemoptysis, CP, orthopnea,choking, dysphagia, ear discharge, abdominal pain, paresthesias, extremity edema, rashes, urinary symptoms. Hx HD in [id number] and improved renal functions since, has fistula L arm. In ER febrile at 39.2 decreased to 37.6 after tylenol and IVF. P: 100 down to 92 , BP: 133/67, O2: 94-98% on RA. WBC: 8, Lactic acid: 2.1, Hgb: 11.8 (12.2 baseline), +influenza A, negative CXR, negative U/A, negative strep swab, pending blood cultures. Given 2L NSS, Tylenol, Zofran, Tamiflu, and amoxicillin for otitis media. . Physical Exam (per Admitting): General Appearance: + pertinent finding (chronically ill appearing, in no apparent distress) Head: normocephalic, atraumatic Eyes: PERRL, EOMI, sclerae normal ENT: hearing grossly normal, pharynx normal, + pertinent finding (R TM with slight erythema, no significant bulging and intact. L TM dull without significant erythema, +TM scarring and intact. Canals bilaterally without erythema or edema or discharge. No significant rhinorrhea) Neck: supple, no adenopathy, trachea midline Respiratory/Chest: chest non-tender, lungs clear, normal breath sounds, no respiratory distress, no accessory muscle use Cardiovascular: regular rate, rhythm, no edema, no murmur, normal peripheral pulses Abdomen/GI: normal bowel sounds, non tender, soft Back: normal inspection Extremities/Musculoskelatal: normal inspection, no pedal edema, normal range of motion Neurologic/Psych: alert, normal mood/affect, oriented x 3 Skin: normal color, warm/dry Hospital Course INFLUENZA A Continue oseltamivir to complete 5 day course of therapy. ASTHMA Continue bronchodilators. Add steroids- IV methylprednisolone x 1, then prednisone. Discharge on prednisone 40 mg daily to complete 5 day course of therapy. SINUSITIS Changed Rx from amoxicillin to amoxicillin / clavulanic acid for better coverage. Discharge on Augmentin to complete 7 day course of therapy. HYPOKALEMIA K 3.3 at time of admission. Replaced. K 3.9 day of discharge SLE Continue hydroxychloroquine and mycophenolate mofetil with caution. FIBROMYALGIA Continue usual regimen. VTE PROPHYLAXIS SQ enoxaparin. Ambulate. DISPOSITION Discharge to home. Family Medicine follow-up with Dr. Kiki Ferraro. Rheumatology follow-up with Dr. Gutierrez. . Discharge Instructions Date of Service Mar 16, 2017. Admission Reason for Admission: influenza . Discharge Discharge Diagnosis / Problem: influenza Discharge Goals Goal(s): Decrease discomfort, Improve disease control Activity Recommendations Activity Limitations: resume your previous activity . Instructions / Follow-Up Instructions / Follow-Up APPOINTMENTS: FAMILY MEDICINE 03/20/2017 10:30 AM Kiki Ferraro, DO OTHER INSTRUCTIONS: Take prednisone 40 mg daily for 3 days for wheezing. Take amoxicillin / clavulanic acid (Augmentin) twice a day with food until gone. Take oseltamivir phosphate (Tamiflu) twice a day until gone. Seek medical attention if you have: * temperature above 101 * chest pain or trouble breathing * abdominal pain, nausea, vomiting * diarrhea, dark stools or bloody stools * any unanswered questions or concerns Call 911 if symptoms are severe. Call if you have any questions or problems. My cell # is [phone]. You can also reach a [facility] hospitalist on duty at [facility] 24 hours a day by calling [phone]. Please take good care of yourself. Armond Greenberg . Current Hospital Diet Patient's current hospital diet: Regular Diet Discharge Diet Recommended Diet: Regular Diet Procedures Procedures Performed: Chest x-ray- no pneumonia. Flu test- positive. Pending Studies Studies pending at discharge: no Medical Emergencies . Who to Call and When: Medical Emergencies: If at any time you feel your situation is an emergency, please call 911 immediately. . Non-Emergent Contact Non-Emergency issues call your: Primary Care Provider, Hospital Doctor . . "Provider Documentation" section prepared by Armond Greenberg. . VTE Core Measure Inpt VTE Proph given/why not?: Enoxaparin (Lovenox)SQ .
== END 2017-03-16 15:49 | disposition home or self-care (01) ==
LOC: C.EDB 17:07 → C.2T 21:16 → ENRESERV 23:01 → EDBEDREQ 03-14 10:34 → ENRESERV 03-14 10:44 → C.4E 03-14 11:06
PROVIDERS: ADMIT Hospitalist; ATTEND Hospitalist
DX: J11.1 Influenza due to unidentified influenza virus with other respiratory manifestations (principal); J32.9 Chronic sinusitis, unspecified; E87.6 Hypokalemia; J45.909 Unspecified asthma, uncomplicated; M79.7 Fibromyalgia; K21.9 Gastro-esophageal reflux disease without esophagitis; E03.9 Hypothyroidism, unspecified; I73.00 Raynaud's syndrome without gangrene; M32.9 Systemic lupus erythematosus, unspecified; Z90.89 Acquired absence of other organs; Z79.82 Long term (current) use of aspirin; Z79.899 Other long term (current) drug therapy; Z91.018 Allergy to other foods; Z91.040 Latex allergy status; Z80.9 Family history of malignant neoplasm, unspecified; Z82.49 Family history of ischemic heart disease and other diseases of the circulatory system

== ENCOUNTER 2017-06-29 12:13 | Emergency (ER) | payer OTHER ==
[~2017-06-29] VITALS: Ht 162.6 cm; Wt 60.3 kg
[~2017-06-29 12:13] MED LIST changes: +AMOX1TAB43 PO; +ASPI-435 PO; +DEXT1CAP9 PO; +LORA-741 PO; +ONDA4TAB10 SL; +PRD10 PO; +TMF75 PO
[2017-06-29 12:21] VITALS: BP 132/80; PULSE 101; TEMP 36.7; O2SAT 95; Ht 162.6 cm; Wt 60.3 kg
[2017-06-29] MEDS ORDERED: CIPROFLOXACIN 500 MG TAB PO STA (12:50)
[2017-06-29] MEDS ORDERED: PHENAZOPYRIDINE HCL 200 MG TAB PO STA (12:50)
[2017-06-29] MEDS ORDERED: CIPR-255 PO (13:02)
[2017-06-29] MEDS ORDERED: PHEN-876 PO (13:02)
--- NOTE | 2017-06-29 15:35 | EMERGENCY ROOM VISIT NOTE ---
History Report prepared by Debra: Michele Ye Under the Supervision of: Dr. Armond Castro M.D. First contact with patient: 12:38 Chief Complaint: URINARY SYMPTOMS Stated Complaint: UTI History of Present Illness The patient is a 47 year old female who presents to the Emergency Room with complaints of constant UTI symptoms that began recently. Patient states that she has a history of UTIs. She states that she has urinary discomfort and a burning sensation. Patient states that she takes Cellcept for Lupus. She denies taking steroids. She adds that her family doctor is Dr. Ferraro. Pt denies LOC , headache, fevers, chills, diaphoresis, visual changes, neck pain, chest pain, breathing difficulties, nausea, vomiting, flank pain, abdominal pain, back pain , melena, hematochezia, numbness, weakness, lymphadenopathy, rash, or other complaints. Source of History: patient Onset: Recent Position: other (Urethra) Timing: constant Modifying Factors (Relieving): other (None) Associated Symptoms: + urinary symptoms Review of Systems See HPI for pertinent positives and negatives. A total of 6 systems were reviewed and were otherwise negative. Past Medical & Surgical Medical Problems: (1) Asthma (2) Fibromyalgia (3) GERD (gastroesophageal reflux disease) (4) Hypothyroidism (5) Lupus (6) Migraine (7) Migraine headache (8) Raynaud phenomenon (9) Systemic lupus erythematosus Surgical Problems: (1) Fistula (2) History of tonsillectomy and adenoidectomy (3) Status post tonsillectomy Family History FH: cancer Heart disease Social History Smoking Status: Never Smoker Alcohol Use: occasionally Drug Use: none Marital Status: Housing Status: lives with family Occupation Status: unemployed Current/Historical Medications Scheduled Aspirin (Aspirin 81), 1 TAB PO DAILY Ciprofloxacin Hcl (Cipro), 500 MG PO BID Hydroxychloroquine Sulfate (Hydroxychloroquine Sulfat), 200 MG PO HS Levothyroxine Sodium (Levothyroxine Sodium), 75 MCG PO DAILY Lisinopril (Lisinopril), 20 MG PO DAILY Lorazepam (Ativan), 0.5 MG PO TID Mycophenolate Mofetil (Mycophenolate Mofetil), 1,000 MG PO BID Omeprazole (Prilosec), 20 MG PO BID Ondasetron Odt (Zofran Odt), 4 MG SL Q8 Oseltamivir Phosphate (Tamiflu), 75 MG PO BID Scheduled PRN Albuterol Hfa (Ventolin Hfa), 2 PUFFS INH QID PRN for SOB/Wheezing Cyclobenzaprine HCl (Cyclobenzaprine HCl), 10 MG PO TID PRN for Muscle Spasms Oxycodone/Acetaminophen 5MG/325MG (Percocet 5MG/325MG), 1 TABLET PO Q8 PRN for Moderate Pain Phenazopyridine HCl (Pyridium), 200 MG PO TID PRN for Frequency/Burning w/ Urination Ranitidine HCl (Ranitidine HCl), 150 MG PO BID PRN for Heartburn Allergies Coded Allergies: Molds & Smuts (Verified Allergy, Intermediate, allergy, 03/13/17) Latex1 -Allergic Contact Dermititis (Verified Allergy, Mild, `ALSO VINYL- BLISTERS, 03/13/17) Chocolate (Verified Allergy, Unknown, migraines, 03/13/17) Mushroom (Verified Adverse Reaction, Intermediate, n/v, 03/13/17) NSAIDs (Verified Adverse Reaction, Unknown, NO ASA,IBUPROFEN,NAPROXEN, TORADOL PER DR MATTHEWS 12/22/09, 03/13/17) Physical Exam Vital Signs Date Time Temp Pulse Resp B/P (MAP) Pulse Ox O2 Delivery O2 Flow Rate FiO2 06/29/17 12:21 36.7 101 16 132/80 95 Room Air Physical Exam GENERAL: Awake, alert, well-appearing, in no distress HENT: Normocephalic, atraumatic. Oropharynx unremarkable. EYES: Normal conjunctiva. Sclera non-icteric. NECK: Supple. No nuchal rigidity. FROM. No masses. RESPIRATORY: Clear to auscultation. No wheezes. No rales. Normal respiratory effort. CARDIAC: Normal rate. Normal rhythm. No murmurs. No rubs. Extremities warm and well perfused. Pulses equal. No JVD. GI: Soft, non-distended. Mild suprapubic tenderness to palpation. No rebound or guarding. No masses. RECTAL: Deferred. MUSCULOSKELETAL: Atraumatic. Chest examination reveals no tenderness. The back is symmetrical on inspection without obvious abnormality. There is no CVA tenderness to palpation. No joint edema. LOWER EXTREMITIES: Calves are equal size bilaterally and non-tender. No edema. No discoloration. NEURO: Normal sensorium. No sensory or motor deficits noted. SKIN: No rash or jaundice noted. Medical Decision & Procedures Laboratory Results Test 06/29/17 12:25 Urine Color DK YELLOW Urine Appearance CLOUDY (CLEAR) Urine pH 5.0 (4.5-7.5) Urine Specific [place] 1.027 (1.000-1.030) Urine Protein 1+ (NEG) Urine Glucose (UA) NEG (NEG) Urine Ketones TRACE (NEG) Urine Occult Blood 1+ (NEG) Urine Nitrite NEG (NEG) Urine Bilirubin NEG (NEG) Urine Urobilinogen NEG (NEG) Urine Leukocyte Esterase MODERATE (NEG) Urine WBC (Auto) >30 /hpf (0-5) Urine RBC (Auto) 10-30 /hpf (0-4) Urine Hyaline Casts (Auto) 1-5 /lpf (0-5) Urine Epithelial Cells (Auto) >30 /lpf (0-5) Urine Bacteria (Auto) 2+ (NEG) Laboratory results reviewed by me Medications Administered Medications (Trade) Dose Ordered Sig/Tayler Route Start Time Stop Time Status Last Admin Dose Admin Phenazopyridine HCl (Pyridium Tab) 200 mg NOW STAT PO 06/29/17 12:50 06/29/17 12:51 DC 06/29/17 13:03 200 MG Ciprofloxacin (Cipro Tab) 500 mg NOW STAT PO 06/29/17 12:50 06/29/17 12:51 DC 06/29/17 13:03 500 MG ED Course 1242: The patient was evaluated in room D4. A complete history and physical exam was performed. 1250: Cipro Tab 500mg PO and Pyridium Tab 200mg PO 1302: I reevaluated the patient. Discussed results and discharge instructions. She verbalized understanding and agreement. The patient is ready for discharge. Medical Decision Patient presents emergency department of any urinary symptoms. She has frequent UTIs. She has no signs or symptoms to suggest bacteremia, sepsis, pyelonephritis, or intra-abdominal process. The patient had a urinalysis and culture performed. Urinalysis was very concerning for infection. Patient was given Pyridium and Cipro. She will be treated with this as an outpatient. Record review indicates that the Cipro should be adequate for all the previous infections that she has had here over the years. If she worsens in any way she will be back. A prescription for Cipro and Pyridium were sent to her pharmacy. By the evaluation outlined above other emergent etiologies such as those listed in the differential, as well as others, were deemed relatively unlikely. The patient was educated about the findings as listed above. All questions were answered and the patient was pleased with the treatment. Return instructions were outlined and the patient was discharged in stable condition. The patient was referred to her PCP for follow-up for a recheck of the current condition. Medication Reconcilliation Current Medication List: was personally reviewed by me Blood Pressure Screening Patient's blood pressure: Elevated blood pressure Blood pressure disposition: Referred to PCP Impression Primary Impression: Urinary tract infection Scribe Attestation The scribe's documentation has been prepared under my direction and personally reviewed by me in its entirety. I confirm that the note above accurately reflects all work, treatment, procedures, and medical decision making performed by me. Departure Information Dispostion Home / Self-Care Prescriptions Phenazopyridine HCl (Pyridium) 200 Mg Tab 200 MG PO TID Y for Frequency/Burning w/Urination, #10 TAB Prov: Armond Castro MD 06/29/17 Ciprofloxacin Hcl (CIPRO) 500 Mg Tab 500 MG PO BID, #10 TAB Prov: Armond Castro MD 06/29/17 Referrals Kiki Ferraro D.OAmeena (PCP) Forms HOME CARE DOCUMENTATION FORM, IMPORTANT VISIT INFORMATION Patient Instructions My [facility] Additional Instructions Ciprofloxacin(Cipro) 500mg: Take one pill twice daily for 5 days for your urine infection. All antibiotics can cause diarrhea. If this occurs and you feel worse or it does not resolve in 1-2 days follow up with your doctor or return to the Emergency Department as this could be signs of serious underlying problems. If you experience any pain in your tendons or any tendon injury return to the ER for re-evaluation. Any medication can cause an allergic reaction, stop the pills immediately and return to the ER for rash, hives, breathing difficulties, or swelling. Trimethoprim-Sulfamethoxazole(Bactrim DS): Take one pill twice daily for 3 days for your urine infection. All antibiotics can cause diarrhea. If this occurs and you feel worse or it does not resolve in 1-2 days follow up with your doctor or return to the Emergency Department as this could be signs of serious underlying problems. Any medication can cause an allergic reaction, stop the pills immediately and return to the ER for rash, hives, breathing difficulties, or swelling. Pyridium 200mg: Take one pill three times daily as needed for urinary discomfort. This medication will turn your urine orange. This is normal and nothing to be concerned about. Acetaminophen(Tylenol) may be used for fever or pain. Use 1000mg every six hours as needed. Avoid using more than 4000mg in a 24 hour period. Rest and drink plenty of fluids. Continue current medications. Return to the ER immediately for worsening or persistent abdominal pain, vomiting, fevers, back or flank pain, worsening of your condition, or as needed. Follow up with your primary physician within 2-3 days for a recheck of the current condition.
--- NOTE | 2017-07-01 12:08 | Pharmacy Progress Note ---
ED Pharmacist Culture FollowUp Date of Service: July 01, 2017. Patient was sent home with a prescription for Ciprofloxacin 500mg PO BID x 5 days, which should cover the e coli growing from the patient's URINE culture.
== END 2017-06-29 13:07 | disposition home or self-care (01) ==
LOC: C.EDB 12:13 → C.EDD 13:07
DX: N39.0 Urinary tract infection, site not specified (principal); M32.9 Systemic lupus erythematosus, unspecified; J45.909 Unspecified asthma, uncomplicated; M79.7 Fibromyalgia; K21.9 Gastro-esophageal reflux disease without esophagitis; E03.9 Hypothyroidism, unspecified; Z79.82 Long term (current) use of aspirin; Z79.899 Other long term (current) drug therapy; Z91.048 Other nonmedicinal substance allergy status; Z91.018 Allergy to other foods; Z88.8 Allergy status to other drugs, medicaments and biological substances

== ENCOUNTER 2017-07-17 08:14 | Emergency (ER) | payer OTHER ==
[~2017-07-17] VITALS: Ht 162.6 cm; Wt 60.4 kg
[~2017-07-17 08:14] MED LIST changes: -AMOX1TAB43 PO; +CIPR-255 PO; -DEXT1CAP9 PO; +PHEN-876 PO; -PRD10 PO
[2017-07-17 08:24] VITALS: TEMP 36.3; Ht 162.6 cm; Wt 60.4 kg
[2017-07-17] MEDS ORDERED: SODIUM CHLORIDE 0.9% 1000ML 1,000 ML IV STA (08:39)
[2017-07-17] MEDS ORDERED: DEXAMETHASONE INJ 10 MG in SYRINGE 0 ML IV STA (08:39)
[2017-07-17] MEDS ORDERED: MAGNESIUM SULFATE 1GM / D5W 100 ML IV STA (08:39)
[2017-07-17] MEDS ORDERED: LORAZEPAM 2 MG/ML 1 ML VIAL IV STA (08:39)
[2017-07-17] MEDS ORDERED: PROCHLORPERAZINE 5 MG/ML 2 ML VIAL IV STA (08:39)
[2017-07-17] MEDS ORDERED: DiphenhydrAMINE HCL 50 MG/ML VIAL IV STA (08:39)
[2017-07-17 09:03] VITALS: O2SAT 98
--- NOTE | 2017-07-17 09:22 | EMERGENCY ROOM VISIT NOTE ---
ED Visit Note First contact with patient: 08:28 I have seen and examined this patient with Ben Andrews and generally agree with the treatment plan as discussed. Problem List Medical Problems: (1) Asthma Status: Chronic (2) Fibromyalgia Status: Chronic (3) GERD (gastroesophageal reflux disease) Status: Chronic (4) Hypothyroidism Status: Chronic (5) Lupus Status: Chronic (6) Migraine Status: Resolved (7) Migraine headache Status: Chronic (8) Raynaud phenomenon Status: Chronic (9) Systemic lupus erythematosus Status: Chronic Surgical Problems: (1) Fistula Status: Resolved (2) History of tonsillectomy and adenoidectomy Status: Resolved (3) Status post tonsillectomy Status: Chronic Current/Historical Medications Scheduled Aspirin (Aspirin 81), 1 TAB PO DAILY Ciprofloxacin Hcl (Cipro), 500 MG PO BID Hydroxychloroquine Sulfate (Hydroxychloroquine Sulfat), 200 MG PO HS Levothyroxine Sodium (Levothyroxine Sodium), 75 MCG PO DAILY Lisinopril (Lisinopril), 20 MG PO DAILY Lorazepam (Ativan), 0.5 MG PO TID Mycophenolate Mofetil (Mycophenolate Mofetil), 1,000 MG PO BID Omeprazole (Prilosec), 20 MG PO BID Ondasetron Odt (Zofran Odt), 4 MG SL Q8 Oseltamivir Phosphate (Tamiflu), 75 MG PO BID Scheduled PRN Albuterol Hfa (Ventolin Hfa), 2 PUFFS INH QID PRN for SOB/Wheezing Cyclobenzaprine HCl (Cyclobenzaprine HCl), 10 MG PO TID PRN for Muscle Spasms Oxycodone/Acetaminophen 5MG/325MG (Percocet 5MG/325MG), 1 TABLET PO Q8 PRN for Moderate Pain Phenazopyridine HCl (Pyridium), 200 MG PO TID PRN for Frequency/Burning w/ Urination Ranitidine HCl (Ranitidine HCl), 150 MG PO BID PRN for Heartburn Allergies Coded Allergies: Molds & Smuts (Verified Allergy, Intermediate, allergy, 03/13/17) Latex1 -Allergic Contact Dermititis (Verified Allergy, Mild, `ALSO VINYL- BLISTERS, 03/13/17) Chocolate (Verified Allergy, Unknown, migraines, 03/13/17) Mushroom (Verified Adverse Reaction, Intermediate, n/v, 03/13/17) NSAIDs (Verified Adverse Reaction, Unknown, NO ASA,IBUPROFEN,NAPROXEN, TORADOL PER DR MATTHEWS 12/22/09, 03/13/17) Vital Signs Date Time Temp Pulse Resp B/P (MAP) Pulse Ox O2 Delivery O2 Flow Rate FiO2 07/17/17 09:03 86 18 115/70 100 Room Air 07/17/17 09:03 98 Room Air 07/17/17 08:24 36.3 83 20 111/72 100 Room Air Medications Administered Medications (Trade) Dose Ordered Sig/Tayler Route Start Time Stop Time Status Last Admin Dose Admin Sodium Chloride 1,000 ml @ 999 mls/hr Q1H1M STAT IV 07/17/17 08:39 07/17/17 09:39 07/17/17 08:56 999 MLS/HR Prochlorperazine Edisylate (Compazine Inj) 10 mg NOW STAT IV 07/17/17 08:39 07/17/17 08:43 DC 07/17/17 08:56 10 MG Diphenhydramine HCl (Benadryl Inj) 25 mg NOW STAT IV 07/17/17 08:39 07/17/17 08:43 DC 07/17/17 08:56 25 MG Lorazepam (Ativan Inj) 0.5 mg NOW STAT IV 07/17/17 08:39 07/17/17 08:43 DC 07/17/17 08:57 0.5 MG Dexamethasone Sodium Phosphate 10 mg/Syringe 2.5 ml @ 1 mls/min ONE STAT IV 07/17/17 08:39 07/17/17 08:43 DC 07/17/17 08:56 1 MLS/MIN Magnesium Sulfate 100 ml @ 100 mls/hr NOW STAT IV 07/17/17 08:39 07/17/17 09:38 07/17/17 08:56 100 MLS/HR Departure Information Referrals Kiki Ferraro D.O. (PCP) Patient Instructions My [facility]
[2017-07-17] MEDS ORDERED: DICL1GEL34 TOP (09:55)
[2017-07-17] MEDS ORDERED: TAPE50TA PO (09:55)
[2017-07-17] MEDS ORDERED: OMEP40CA41 PO (09:55)
[2017-07-17 10:05] VITALS: BP 141/72; PULSE 85; O2SAT 99
--- NOTE | 2017-07-17 15:18 | EMERGENCY ROOM VISIT NOTE ---
History First contact with patient: 08:28 Chief Complaint: HEADACHE Stated Complaint: MIGRAINE,VOMITING, SWOLLEN THROAT History of Present Illness The patient is a 47 year old female who presents to the Emergency Room with complaints of a migraine headache for the past 3 days. The patient reports a history of chronic migraines, getting headaches at least twice a week. She is currently under the management of a [facility] pain clinic. She does not recall the name of the medicine that she takes with acute migraines, but it did not help. The patient reports that she has seen a [facility] neurologist for her migraines. She denies being on any medicines to prevent migraines. She describes her headache as a bilateral frontal and posterior headache that extends into the neck. She reports photophobia and significant phonophobia. This is typical for her headaches, and is not the worst headache of her life. She denies any recent head injury, fevers or chills. She does report some current seasonal allergy symptoms. The patient reports nausea and vomiting, unable to remain hydrated. She rates her headache a 9 out of 10 on my exam. She denies any paresthesias or numbness of the upper extremities, and denies any other coordination problems, dizziness or weakness. Review of Systems HEENT: Denies dizziness, visual problems, hearing loss, tinnitus. Denies difficulty swallowing or oral lesions. PULMONARY: Denies cough, shortness of breath, sputum production or hemoptysis. CARDIOVASCULAR: Denies chest pain, palpitations, dyspnea on exertion, orthopnea or peripheral edema. GASTROINTESTINAL: Denies diarrhea, constipation, nausea, vomiting, or abdominal pain. GENITOURINARY: Denies dysuria, frequency, urgency or nocturia. NEUROLOGIC: History of migraines. MUSCULOSKELETAL: Denies history of joint tenderness/swelling. SKIN: Denies rashes or lesions. PSYCHIATRIC: Denies history of depression or mental illness. ENDOCRINE: Denies history of diabetes or thyroid disorders. Past Medical/Surgical History Medical Problems: (1) Asthma (2) Fibromyalgia (3) GERD (gastroesophageal reflux disease) (4) Hypothyroidism (5) Lupus (6) Migraine (7) Migraine headache (8) Raynaud phenomenon (9) Systemic lupus erythematosus Surgical Problems: (1) Fistula (2) History of tonsillectomy and adenoidectomy (3) Status post tonsillectomy Family History FH: cancer Heart disease Social History Smoking Status: Never Smoker Alcohol Use: occasionally Drug Use: none Marital Status: Housing Status: lives with family Occupation Status: unemployed Current/Historical Medications Scheduled Aspirin (Aspirin 81), 1 TAB PO DAILY Diclofenac Sodium (Topical) (Diclofenac Sodium), 1 APPLN TOP UD Hydroxychloroquine Sulfate (Hydroxychloroquine Sulfat), 200 MG PO HS Levothyroxine Sodium (Levothyroxine Sodium), 75 MCG PO DAILY Lisinopril (Lisinopril), 20 MG PO DAILY Lorazepam (Ativan), 0.5 MG PO TID Mycophenolate Mofetil (Mycophenolate Mofetil), 1,000 MG PO BID Omeprazole (Prilosec), 40 MG PO DAILY Ondasetron Odt (Zofran Odt), 4 MG SL Q8 Scheduled PRN Albuterol Hfa (Ventolin Hfa), 2 PUFFS INH QID PRN for SOB/Wheezing Cyclobenzaprine HCl (Cyclobenzaprine HCl), 10 MG PO TID PRN for Muscle Spasms Oxycodone/Acetaminophen 5MG/325MG (Percocet 5MG/325MG), 1 TABLET PO Q8 PRN for Moderate Pain Ranitidine HCl (Ranitidine HCl), 150 MG PO BID PRN for Heartburn Tapentadol Hcl (Nucynta), 50 MG PO BID PRN for Pain Physical Exam Vital Signs Date Time Temp Pulse Resp B/P (MAP) Pulse Ox O2 Delivery O2 Flow Rate FiO2 07/17/17 10:05 85 18 141/72 99 Room Air 07/17/17 09:03 86 18 115/70 100 Room Air 07/17/17 09:03 98 Room Air 07/17/17 08:24 36.3 83 20 111/72 100 Room Air Physical Exam CONSTITUTIONAL: Healthy and well nourished. Alert and oriented X 3 with positive affect. Patient appears in moderate discomfort. HEENT: Normocephalic, atraumatic. Pupils equal, round and reactive. Ears and nares are clear. No rhinorrhea. Patient is photophobic, precluding funduscopic exam. OROPHARYNX: Mild posterior pharyngeal erythema without tonsillar hypertrophy or exudates. NECK: Full active range of motion without discomfort. No nuchal rigidity, JVD or carotid bruits. RESPIRATORY: Clear to auscultation bilaterally with no wheezing, crackles, rhonchi or stridor. CARDIOVASCULAR: Regular rate and rhythm with no murmurs, rubs or gallops. GASTROINTESTINAL: Bowel sounds present in all quadrants. MUSCULOSKELETAL: Full range of motion of all joints without discomfort. INTEGUMENTARY: No rash or other significant dermatologic conditions noted. HEMATOLOGIC: No ecchymosis or petechiae noted. NEUROLOGIC: Cranial nerves II-XII grossly intact. No focal neurologic deficits noted. Negative pronator drift. No ataxia with ambulation. Medical Decision & Procedures Medications Administered Medications (Trade) Dose Ordered Sig/Tayler Route Start Time Stop Time Status Last Admin Dose Admin Sodium Chloride 1,000 ml @ 999 mls/hr Q1H1M STAT IV 07/17/17 08:39 07/17/17 09:39 DC 07/17/17 08:56 999 MLS/HR Prochlorperazine Edisylate (Compazine Inj) 10 mg NOW STAT IV 07/17/17 08:39 07/17/17 08:43 DC 07/17/17 08:56 10 MG Diphenhydramine HCl (Benadryl Inj) 25 mg NOW STAT IV 07/17/17 08:39 07/17/17 08:43 DC 07/17/17 08:56 25 MG Lorazepam (Ativan Inj) 0.5 mg NOW STAT IV 07/17/17 08:39 07/17/17 08:43 DC 07/17/17 08:57 0.5 MG Dexamethasone Sodium Phosphate 10 mg/Syringe 2.5 ml @ 1 mls/min ONE STAT IV 07/17/17 08:39 07/17/17 08:43 DC 07/17/17 08:56 1 MLS/MIN Magnesium Sulfate 100 ml @ 100 mls/hr NOW STAT IV 07/17/17 08:39 07/17/17 09:38 DC 07/17/17 08:56 100 MLS/HR ED Course Patient history and physical exam were performed. Nurse's notes were reviewed. Vital signs were reviewed and were normal. Review of prior medical records shows that the patient has been here in the past with migraines. IV access was established, and the patient was administered IV medications as discussed in the previous Medications Administered section. The patient was observed for over an hour, and rated her discomfort a 5 out of 10. She did report feeling better, and wanted to go home. The patient was encouraged to rest and remain well-hydrated. She was instructed to follow-up with her PCP or pain management as needed for further management. She is welcome to return to the emergency department for any progressively worsening symptoms. The patient was happy with plan of care, and voiced understanding of all discharge instructions. Medical Decision Patient presents with complaint of a migraine that is similar to all prior migrainous events. Based on history and physical exam findings, I do not suspect meningitis, cranial bleed, CVA/TIA, thromboembolic event or carbon monoxide poisoning. [place] Drug Monitoring Program Search Results: patient reviewed within database, no issues identified Medication Reconcilliation Current Medication List: was personally reviewed by me Blood Pressure Screening Patient's blood pressure: Normal blood pressure Impression Primary Impression: Migraine headache Departure Information Referrals Kiki Ferraro D.OAmeena (PCP) Patient Instructions My [facility]
== END 2017-07-17 10:23 | disposition home or self-care (01) ==
LOC: C.EDB 08:15 → C.EDA 10:23
DX: G43.909 Migraine, unspecified, not intractable, without status migrainosus (principal); J45.909 Unspecified asthma, uncomplicated; M79.7 Fibromyalgia; K21.9 Gastro-esophageal reflux disease without esophagitis; E03.9 Hypothyroidism, unspecified; M32.9 Systemic lupus erythematosus, unspecified; Z79.82 Long term (current) use of aspirin; Z79.899 Other long term (current) drug therapy

== ENCOUNTER 2021-11-23 15:17 | Observation (INO) ==
[2021-11-23] MEDS ORDERED: MoRPHine SULFATE 4 MG/ML 1 ML CARP\\VIAL IV STA (16:03)
[2021-11-23] MEDS ORDERED: SODIUM CHLORIDE 0.9% 500 ML IV STA (16:03)
[2021-11-23] MEDS ORDERED: ONDANSETRON INJ 2 MG/ML 2 ML VIAL IV STA (16:03)
--- NOTE | 2021-11-23 16:09 | Emergency Department Note ---
Impression & Plan Pneumonia, Parapneumonic effusion, Chest pain ED Provider Note NAME: MONI NUNEZ AGE: 51 SEX: F : 1970 ARRIVES VIA: Walk-In INFORMANT: Patient, ED PROVIDER(S): Nitin Cheek DO CHIEF COMPLAINT: Chest pain HPI: The patient is a 51-year-old female who presented to the emergency department for an evaluation of chest pain. The patient states that she had pneumonia approximately month ago. She had very significant coughing. She states that the pneumonia did resolve but she continued to have left-sided chest pain. Now she has very severe pain with any deep breathing. She also notices severe muscle spasm in the whole left side of her body up into her neck and down into her hip and pelvis. She denies having any hemoptysis. She feels very short of breath. She states that she is short of breath with any exertion. She denies having any lower extremity swelling. She states that she was not been seen by her family doctor for the symptoms. She is been taking her outpatient medication with only minimal relief of her symptoms. The patient has a history of lupus. She has no history of venous thromboembolic disease as far she knows. The patient states the pain is moderate but worsens with cough as well as palpation over the left side of the chest. ROS: See above HPI for pertinent positives & negatives. A total of 10 systems reviewed and were otherwise negative. PAST MEDICAL HISTORY: See Below PAST SURGICAL HISTORY: See Below FAMILY HISTORY: See Below SOCIAL HISTORY: See Below HOME MEDICATIONS: See Below ALLERGIES: See Below VITALS: See Below PHYSICAL EXAMINATION: GENERAL: The patient is awake and alert. The patient is very anxious appearing. She appears to be uncomfortable. EYES: The conjunctivae are clear. The pupils are round and reactive. EARS, NOSE, MOUTH AND THROAT: The nose is without any evidence of any deformity. NECK: The neck is nontender and supple. RESPIRATORY: Splinting respirations were noted. There was significant pain with breathing as well as palpation over the left side of the chest. CARDIOVASCULAR: Regular rate and rhythm noted there no murmurs rubs or gallops normal S1 normal S2. GASTROINTESTINAL: The abdomen is soft. Abdomen is nontender. MUSCULOSKELETAL/EXTREMITIES: There is no evidence of gross deformity full range of motion is noted in the hips and shoulders. SKIN: There is no obvious evidence of any rash. There are no petechiae, pallor or cyanosis noted. NEUROLOGIC: Patient is awake alert and oriented x3 MEDICAL DECISION MAKING: The patient is a 51-year-old female who presented to the emergency department for an evaluation of chest pain. The patient had splinting and abnormal lung sounds. The patient was found to have an effusion on her chest x-ray. She recently was treated for pneumonia. I was concerned this could represent an underlying venous thromboembolic process or possibly a worsening lung infection. It was difficult to obtain an IV access on the patient. She was treated with IV pain medication as well as IV antibiotics. She was reevaluated multiple times. I discussed patient's laboratory and radiographic studies with her. [facility] have agreed to evaluate the patient in the emergency department for further management and disposition. Triage Nursing notes reviewed. Prior medical records reviewed Vital Signs: reviewed and remarkable for tachycardia. Differential diagnosis: Cardiac ischemia, aortic dissection, pulmonary embolism, pneumothorax, pneumonia, pericarditis, myocarditis, esophageal rupture, GERD, cholecystitis, pancreatitis, musculoskeletal, as well as other pathologies. ER treatment provided: See below Diagnostics interpreted by me: ECG: EKG was obtained in the emergency department. My interpretation is sinus tachycardia 116 bpm. There is no ectopy. Nonspecific T wave abnormalities were noted in the inferior leads. This was compared to a tracing from April 02, 2019. The inferior changes are new compared to the previous tracing. Cardiac Monitoring: An order was placed for continuous cardiac monitoring. The monitor shows a rate of 105 bpm with sinus tachycardia. Laboratory studies: As stated above and show below. Imaging studies: See below Consultation(s): I discussed this case with Dr. Nieves who [facility]. 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 Surgical History Fistula x6 L AC History of tonsillectomy and adenoidectomy Status post left foot surgery Status post tonsillectomy Social History Smoking Status: Current every day smoker Hx Alcohol Use: Yes Alcohol type: wine and hard liquor Hx Substance Use: No Preferred Language: Greek Visual Impairment: No Limitations Hearing Ability: Normal marital status: divorce Current Living Situation: Alone current occupational status: disabled Feels Safe at Home: Yes Allergies Allergies Allergy/AdvReac Type Severity Reaction Status Date / Time chocolate flavor Allergy Intermediate migraines Verified 11/23/21 23:08 mold Allergy Intermediate allergy Verified 11/23/21 23:08 latex Allergy Mild `ALSO Verified 11/23/21 23:08 VINYL- BLISTERS mushroom AdvReac Intermediate n/v Verified 11/23/21 23:08 NSAIDS (Non-Steroidal AdvReac Unknown NO Verified 11/23/21 23:08 Anti-Inflamma ASA,IBUPROFEN,NAPROXEN,TORADOL PER DR MATTHEWS 12/22/09 Home Meds Home Medications Medication Instructions Recorded Confirmed levothyroxine 75 mcg capsule 75 mg PO PM 01/08/18 11/23/21 omeprazole 40 mg capsule,delayed 40 mg PO PM 01/08/18 11/23/21 release albuterol sulfate 90 mcg/actuation 2 puff inhalation Q6 PRN Shortness 03/04/18 11/23/21 aerosol inhaler Of Breath Or Wheezing cyclobenzaprine 10 mg tablet 20 mg PO HS 03/26/18 11/23/21 mycophenolate mofetil 500 mg 500 mg PO BID 04/05/18 11/23/21 tablet (CellCept) amlodipine 2.5 mg tablet 2.5 mg PO PM 07/23/20 11/23/21 levocetirizine 5 mg tablet (Xyzal) 5 mg PO PM PRN seasonal allergies 07/23/20 11/23/21 trazodone 50 mg tablet 50 mg PO HS 07/23/20 11/23/21 cyclobenzaprine 10 mg tablet 10 mg PO DAILY PRN muscle spasm 11/23/21 11/23/21 lisinopril 40 mg tablet 40 mg PO DAILY 11/23/21 11/23/21 loratadine 10 mg tablet (Claritin) 10 mg PO DAILY 11/23/21 11/23/21 meclizine 12.5 mg tablet 12.5 mg PO TID PRN DIZZY 11/23/21 11/23/21 medroxyprogesterone 150 mg/mL 150 mg IM .[id number] 11/23/21 11/23/21 intramuscular syringe prednisone 5 mg tablet 5 mg PO DAILY 11/23/21 11/23/21 promethazine 12.5 mg tablet 12.5 mg PO Q6H PRN Nausea 11/23/21 11/23/21 Results & Data (ED) Vital Signs Vital Signs - 24 hr 11/23/21 15:17 11/23/21 15:17 11/23/21 18:07 Temperature 36.5 C Temperature Source Oral Pulse Rate 119 H 117 H Pulse Rate [Finger] Pulse Rate from SpO2 Sensor 117 H Respiratory Rate 16 26 H 24 Respiratory Effort / Characteristics Non-Labored Respiratory Depth Normal Respiratory Pattern Regular Blood Pressure 189/87 H Blood Pressure [Right Arm] Blood Pressure Mean 121 Blood Pressure Mean [Right Arm] Pulse Oximetry 99 100 97 Oxygen Delivery Method Room Air Sepsis Recent Fever Within 48 Hours No Sepsis New/Unexplained Change in Mental Status No Sepsis Action Taken by Nursing No Action Required 11/23/21 18:30 11/23/21 18:54 11/23/21 18:54 Temperature Temperature Source Pulse Rate 118 H 116 H Pulse Rate [Finger] Pulse Rate from SpO2 Sensor 118 H 116 H Respiratory Rate 22 27 H Respiratory Effort / Characteristics Respiratory Depth Respiratory Pattern Blood Pressure 178/77 H 168/99 H Blood Pressure [Right Arm] Blood Pressure Mean 110 122 Blood Pressure Mean [Right Arm] Pulse Oximetry 96 95 Oxygen Delivery Method Sepsis Recent Fever Within 48 Hours Sepsis New/Unexplained Change in Mental Status Sepsis Action Taken by Nursing 11/23/21 19:00 11/23/21 19:00 11/23/21 19:30 Temperature Temperature Source Pulse Rate 116 H Pulse Rate [Finger] Pulse Rate from SpO2 Sensor 116 H Respiratory Rate 27 H Respiratory Effort / Characteristics Respiratory Depth Respiratory Pattern Blood Pressure 160/80 H 159/77 H Blood Pressure [Right Arm] Blood Pressure Mean 106 104 Blood Pressure Mean [Right Arm] Pulse Oximetry 93 Oxygen Delivery Method Sepsis Recent Fever Within 48 Hours Sepsis New/Unexplained Change in Mental Status Sepsis Action Taken by Nursing 11/23/21 19:30 11/23/21 20:00 11/23/21 20:30 Temperature Temperature Source Pulse Rate 114 H 114 H 117 H Pulse Rate [Finger] Pulse Rate from SpO2 Sensor 113 H 114 H Respiratory Rate 30 H 34 H 26 H Respiratory Effort / Characteristics Respiratory Depth Respiratory Pattern Blood Pressure Blood Pressure [Right Arm] Blood Pressure Mean Blood Pressure Mean [Right Arm] Pulse Oximetry 94 94 Oxygen Delivery Method Sepsis Recent Fever Within 48 Hours Sepsis New/Unexplained Change in Mental Status Sepsis Action Taken by Nursing 11/23/21 23:16 Temperature Temperature Source Pulse Rate Pulse Rate [Finger] 105 H Pulse Rate from SpO2 Sensor Respiratory Rate 20 Respiratory Effort / Characteristics Respiratory Depth Respiratory Pattern Blood Pressure Blood Pressure [Right Arm] 134/89 Blood Pressure Mean Blood Pressure Mean [Right Arm] 104 Pulse Oximetry 94 Oxygen Delivery Method Room Air Sepsis Recent Fever Within 48 Hours Sepsis New/Unexplained Change in Mental Status Sepsis Action Taken by Intermediate Medications Current Medication List: was personally reviewed by me Laboratory Data Attestation: I reviewed the patient's lab results. Result diagrams: 11/23/21 18:23 11/23/21 18:23 Lab Results 11/23/21 11/23/21 11/23/21 Range/Units 18:23 18:23 18:23 WBC 12.44 H (4.8-10.8) K/ul RBC 4.04 (3.93-5.22) M/uL Hgb 12.3 (12.0-16.0) g/dl Hct 35.9 (34.1-44.9) % MCV 88.9 (80.0-100.0) fL MCH 30.4 (25.0-34.0) pg MCHC 34.3 (32.0-36.0) g/dL RDW Std Deviation 42.0 (36.4-46.3) fL RDW Coeff of [place] 12.8 (11.5-14.5) % Plt Count 343 (130-400) K/uL MPV 8.1 L (9.4-12.3) fL Immature Gran % (Auto) 0.5 % Neut % (Auto) 68.5 % Lymph % (Auto) 18.6 % [place] % (Auto) 9.9 % Eos % (Auto) 2.0 % Baso % (Auto) 0.5 % Neut # (Auto) 8.52 H (1.4-6.5) K/uL Lymph # (Auto) 2.32 (1.2-3.4) K/uL [place] # (Auto) 1.23 H (0.24-0.82) K/uL Eos # (Auto) 0.25 (0-0.50) K/uL Baso # (Auto) 0.06 (0-0.2) K/uL Immature Gran # (Auto) 0.06 H (0.00-0.02) K/uL D-Dimer 1920 H* (0-500) ug/L FEU Sodium 135 L (136-145) mmol/L Potassium 3.7 (3.5-5.1) mmol/L Chloride 105 (98-107) mmol/L Carbon Dioxide 21 (21-32) mmol/L Anion Gap 9 (3-11) BUN 8 (6-23) mg/dl Creatinine 0.65 (0.6-1.2) mg/dl Est Cr Clr Drug Dosing 102.5 ml/min Est GFR ( Amer) 120.0 ml/min Est GFR (Non-Af Amer) 103.5 ml/min BUN/Creatinine Ratio 12.3 (10-20) Glucose 109 H (70-99(Fasting)) mg/dl Calcium 8.9 (8.5-10.1) mg/dl Magnesium (1.7-2.4) mg/dl Total Bilirubin 0.5 (0.2-1.0) mg/dl AST 13 (13-39) U/L ALT 11 (7-52) U/L Alkaline Phosphatase 94 (34-104) U/L Troponin I High Sens 6.7 (0-14) pg/ml Total Protein 6.5 (6.0-8.3) gm/dl Albumin 3.7 (3.4-5.0) gm/dl Globulin 2.8 (2.5-4.0) gm/dl Albumin/Globulin Ratio 1.3 (0.9-2) Lipase 31 (11-82) U/L SARS-CoV-2, RNA, NAAT (NEGATIVE) 11/23/21 11/23/21 Range/Units 18:23 23:03 WBC (4.8-10.8) K/ul RBC (3.93-5.22) M/uL Hgb (12.0-16.0) g/dl Hct (34.1-44.9) % MCV (80.0-100.0) fL MCH (25.0-34.0) pg MCHC (32.0-36.0) g/dL RDW Std Deviation (36.4-46.3) fL RDW Coeff of [place] (11.5-14.5) % Plt Count (130-400) K/uL MPV (9.4-12.3) fL Immature Gran % (Auto) % Neut % (Auto) % Lymph % (Auto) % [place] % (Auto) % Eos % (Auto) % Baso % (Auto) % Neut # (Auto) (1.4-6.5) K/uL Lymph # (Auto) (1.2-3.4) K/uL [place] # (Auto) (0.24-0.82) K/uL Eos # (Auto) (0-0.50) K/uL Baso # (Auto) (0-0.2) K/uL Immature Gran # (Auto) (0.00-0.02) K/uL D-Dimer (0-500) ug/L FEU Sodium (136-145) mmol/L Potassium (3.5-5.1) mmol/L Chloride (98-107) mmol/L Carbon Dioxide (21-32) mmol/L Anion Gap (3-11) BUN (6-23) mg/dl Creatinine (0.6-1.2) mg/dl Est Cr Clr Drug Dosing ml/min Est GFR ( Amer) ml/min Est GFR (Non-Af Amer) ml/min BUN/Creatinine Ratio (10-20) Glucose (70-99(Fasting)) mg/dl Calcium (8.5-10.1) mg/dl Magnesium 1.7 (1.7-2.4) mg/dl Total Bilirubin (0.2-1.0) mg/dl AST (13-39) U/L ALT (7-52) U/L Alkaline Phosphatase (34-104) U/L Troponin I High Sens (0-14) pg/ml Total Protein (6.0-8.3) gm/dl Albumin (3.4-5.0) gm/dl Globulin (2.5-4.0) gm/dl Albumin/Globulin Ratio (0.9-2) Lipase (11-82) U/L SARS-CoV-2, RNA, NAAT NEGATIVE (NEGATIVE) Administered Medications Doxycycline Hyclate 100 mg/ (Dextrose) 110 mls @ 50 mls/hr IV NOW STA Stop: 11/24/21 00:46 Last Admin: 11/23/21 23:00 Dose: 50 mls/hr Documented By: FAHEEM Discontinued Medications Hydromorphone HCl (Hydromorphone Inj 1 Mg/Ml Syringe) 1 mg IV NOW STA Stop: 11/23/21 21:39 Last Admin: 11/23/21 22:03 Dose: 1 mg Documented By: FAHEEM Sodium Chloride (Nss) 500 mls @ 999 mls/hr IV .Q31M STA Stop: 11/23/21 16:33 Last Infusion: 11/23/21 18:47 Dose: 0 mls/hr Documented By: Admin: 11/23/21 17:59 Dose: 999 mls/hr Documented By: FAHEEM Ioversol (Optiray 300 500ml) 108 ml IV ONCE ONE Stop: 11/23/21 20:45 Last Admin: 11/23/21 20:45 Dose: 108 ml Documented By: ANTHONY Morphine Sulfate (Morphine Sulfate 4 Mg/Ml 1 Ml Carp\Vial) 4 mg IV NOW STA Stop: 11/23/21 16:04 Last Admin: 11/23/21 17:58 Dose: 4 mg Documented By: FAHEEM Ondansetron HCl (Ondansetron Inj 2 Mg/Ml 2 Ml Vial) 4 mg IV NOW STA Stop: 11/23/21 16:04 Last Admin: 11/23/21 17:58 Dose: 4 mg Documented By: FAHEEM Ondansetron HCl (Ondansetron Inj 2 Mg/Ml 2 Ml Vial) Confirm Administered Dose 4 mg .ROUTE .STK-MED ONE Stop: 11/23/21 22:58 Last Admin: 11/23/21 22:58 Dose: 4 mg Documented By: FAHEEM Potassium Chloride (Potassium Chloride Crtab 20 Meq Tabcr) 40 meq PO NOW STA Stop: 11/23/21 22:35 Last Admin: 11/23/21 23:02 Dose: 40 meq Documented By: FAHEEM Imaging Data Radiologist's Impression: Chest CTA 11/23/21 16:03 CT ANGIOGRAM OF THE CHEST CLINICAL HISTORY: Atypical chest pain COMPARISON STUDY: Chest x-ray dated 11/23/2021. Chest CT dated 08/06/2009. TECHNIQUE: Following the IV administration of 108 cc of Optiray 300, CT angiogram of the chest was performed from the upper abdomen to the thoracic inlet utilizing the pulmonary embolus protocol. Images are reviewed in the axial, sagittal, and coronal planes. 3-D MIPS images are created and assessed. IV contrast was administered without complication. A dose lowering technique was utilized adhering to the principles of ALARA. The examination is degraded by streak artifact from the arms which could not be elevated above the chest as well as patient motion. CT DOSE: 654.70 mGy.cm FINDINGS: Thyroid: Imaged portions of the thyroid gland are normal in size and attenuation. Thoracic aorta: The thoracic aorta is normal in caliber and demonstrates standard 3-vessel arch anatomy. No dissection is seen. Pulmonary vasculature: The pulmonary trunk is normal in caliber. There are no filling defects identified in main, lobar, or segmental proximal pulmonary branches to suggest pulmonary embolus. Evaluation of the segmental and subsegmental branches is degraded by streak and motion artifact. Heart: The heart is enlarged and without pericardial effusion. Lungs and pleural spaces: Evaluation of the lung parenchyma is moderately degraded by motion artifact. There is a small left pleural effusion with dependent consolidation. Dependent atelectasis is noted at the right lung base. There are scattered calcified granulomas. The trachea and central airways are clear. There is a 1.0 cm ovoid pulmonary nodule in the anterior left upper lobe seen on image #117. Mediastinum: There are numerous mildly enlarged mediastinal lymph nodes. A precarinal node measures 11 mm in short axis. Prevascular nodes measure up to 9 mm in short axis. A subcarinal node measures 17 mm short axis. Charo: Clear. Axillae: There is no axillary lymphadenopathy. There are large venous collaterals/varices identified in the left axilla. These are new from 08/06/2009. Upper abdomen: Partially visualized upper abdominal viscera is within normal limits. Skeletal structures: The skeletal structures are osteopenic. Mild degenerative change and hyperkyphosis is noted in the thoracic spine. There are mild chronic superior endplate compression deformities of T3 and T5. No lytic or blastic bony lesions are seen. IMPRESSION: 1. Streak and motion compromised examination. 2. There is no evidence of central pulmonary embolus in the main, lobar, or proximal segmental pulmonary arteries. Evaluation of the segmental and subsegmental branches is significantly degraded by motion artifact. 3. Cardiomegaly. 4. Small left pleural effusion with dependent consolidation. This could represent atelectasis and/or pneumonia and clinical correlation will be required. Radiographic follow-up to resolution is recommend. 5. There is a 10 mm ovoid left upper lobe pulmonary nodule. This has significantly increased in size dating back to 2009, and a low-grade lesion such as a carcinoid could have this appearance. Nonemergent/outpatient follow-up with pulmonology is recommended. 6. There are large venous collaterals/varices in the left axilla. These are new from 2010. 7. Mildly enlarged mediastinal lymph nodes are similar to 2010 and of indeterminate etiology/significance. 8. Additional findings as above. ACT 112: Positive. There are findings on this exam that require communication between the performing entity and the patient following Patient Test Result Information Act ([place] Act 112) guidelines. Electronically signed by: Mike Renae M.D. 11/23/2021 9:09 PM Chest X-Ray 11/23/21 18:00 SINGLE VIEW CHEST CLINICAL HISTORY: Atypical chest pain FINDINGS: An AP, portable, upright chest radiograph is compared to study dated 11/07/2021. The heart is enlarged. There is pulmonary vascular congestion with mild pulmonary edema. There are left lower thorax pleural effusions with bibasilar consolidation. No pneumothorax is seen. The skeletal structures are osteopenic. The bony thorax is grossly intact. IMPRESSION: 1. Cardiomegaly with evidence of congestive failure and pulmonary edema. 2. Left larger than right pleural effusions with dependent consolidation. ACT 112: Negative or not required by law. Electronically signed by: Mike Renae M.D. 11/23/2021 7:27 PM Discharge Plan Visit Data Chief Complaint: Pain (Generalized) Stated Complaint: MUSCLE SPASMS, PAIN ED Provider: Nitin Cheek Discharge Problem: Pneumonia, Parapneumonic effusion, Chest pain Patient Disposition: Being Evaluated by Hospitalist Forms Stand Alone Forms: [facility] Prescriptions Prescriptions: No Action levothyroxine 75 mcg capsule 75 mg PO PM omeprazole 40 mg capsule,delayed release(DR/EC) 40 mg PO PM albuterol sulfate [Ventolin HFA] 90 mcg/actuation HFA aerosol inhaler 2 puff Inhalation Q6 PRN (Reason: Shortness Of Breath Or Wheezing) cyclobenzaprine 10 mg Tablet 20 mg PO HS mycophenolate mofetil [CellCept] 500 mg tablet 500 mg PO BID promethazine 12.5 mg Tablet 12.5 mg PO Q6H PRN (Reason: Nausea) prednisone 5 mg Tablet 5 mg PO DAILY meclizine 12.5 mg Tablet 12.5 mg PO TID PRN (Reason: DIZZY) lisinopril 40 mg tablet 40 mg PO DAILY loratadine [Claritin] 10 mg Tablet 10 mg PO DAILY medroxyprogesterone 150 mg/mL syringe 150 mg IM .[id number] cyclobenzaprine 10 mg tablet 10 mg PO DAILY PRN (Reason: muscle spasm) trazodone 50 mg tablet 50 mg PO HS amlodipine 2.5 mg tablet 2.5 mg PO PM levocetirizine [Xyzal] 5 mg Tablet 5 mg PO PM PRN (Reason: seasonal allergies) Referrals Referrals: Kiki Ferraro DO [Primary Care Provider] -
[2021-11-23 18:32] LABS: Basophils # (auto) 0.06 K/uL (0-0.2); Basophils % (auto) 0.5 %; Eosinophils # (auto) 0.25 K/uL (0-0.50); Hematocrit (blood only) 35.9 % (34.1-44.9); Hemoglobin 12.3 g/dl (12.0-16.0); Immature Granulocytes # (auto) 0.06 K/uL (0.00-0.02); Immature Granulocytes % (auto) 0.5 %; Lymphocytes # (auto) 2.32 K/uL (1.2-3.4); Lymphocytes % (auto) 18.6 %; Mean Corpuscular Hemoglobin 30.4 pg (25.0-34.0); Mean Corpuscular Hgb Conc 34.3 g/dL (32.0-36.0); Mean Corpuscular Volume 88.9 fL (80.0-100.0); Mean Platelet Volume 8.1 fL (9.4-12.3); Monocytes # (auto) 1.23 K/uL (0.24-0.82); Monocytes % (auto) 9.9 %; Neutrophils # (auto) 8.52 K/uL (1.4-6.5); Neutrophils % (auto) 68.5 %; Platelet Count 343 K/uL (130-400); RDW Coefficient of Variation 12.8 % (11.5-14.5); Red Blood Count 4.04 M/uL (3.93-5.22); White Blood Count 12.44 K/ul (4.8-10.8)
[2021-11-23 19:00] LABS: Troponin I High Sensitivity 6.7 pg/ml (0-14)
[2021-11-23 19:02] LABS: Albumin Globulin Ratio 1.3 (0.9-2); Albumin Level 3.7 gm/dl (3.4-5.0); BUN Creatinine Ratio 12.3 (10-20); Bilirubin,Total 0.5 mg/dl (0.2-1.0); Calcium 8.9 mg/dl (8.5-10.1); Creatinine Clr Calc Pharmacy 102.5 ml/min; Est GFR (Non-African American) 103.5 ml/min; Globulin 2.8 gm/dl (2.5-4.0); Potassium 3.7 mmol/L (3.5-5.1); Total Protein 6.5 gm/dl (6.0-8.3)
--- NOTE | 2021-11-23 19:28 | XRay Report ---
SINGLE VIEW CHEST CLINICAL HISTORY: Atypical chest pain FINDINGS: An AP, portable, upright chest radiograph is compared to study dated 11/07/2021. The heart is enlarged. There is pulmonary vascular congestion with mild pulmonary edema. There are left lower tho rax pleural effusions with bibasilar consolidation. No pneumothorax is seen. The skeletal structures are osteopenic. The bony thorax is grossly intact. IMPRESSION: 1. Cardiomegaly with evidence of congestive failure and pulmonary edema. 2. Left larger than right pleural effusions with dependent consolidation. ACT 112: Negative or not required by law. Electronically signed by: Mike Renae M.D. 11/23/2021 7:27 PM
[2021-11-23 19:39] LABS: D Dimer 1920 ug/L FEU (0-500)
[2021-11-23] MEDS ORDERED: OPTIRAY 300 500mL IV ONE (20:44)
--- NOTE | 2021-11-23 21:11 | CT Scan Report ---
CT ANGIOGRAM OF THE CHEST CLINICAL HISTORY: Atypical chest pain COMPARISON STUDY: Chest x-ray dated 11/23/2021. Chest CT dated 08/06/2009. TECHNIQUE: Following the IV administration of 108 cc of Optiray 300, CT angiogram of the chest was pe rformed from the upper abdomen to the thoracic inlet utilizing the pulmonary embolus protocol. Images are reviewed in the axial, sagittal, and coronal planes. 3-D MIPS images are created and assessed. I V contrast was administered without complication. A dose lowering technique was utilized adhering to the principles of ALARA. The examination is degraded by streak artifact from the arms which could no t be elevated above the chest as well as patient motion. CT DOSE: 654.70 mGy.cm FINDINGS: Thyroid: Imaged portions of the thyroid gland are normal in size and attenuation. Thoracic aorta: The thoracic aorta is normal in caliber and demonstrates standard 3-vessel arch anato my. No dissection is seen. Pulmonary vasculature: The pulmonary trunk is normal in caliber. There are no filling defects identif ied in main, lobar, or segmental proximal pulmonary branches to suggest pulmonary embolus. Evaluation of the segmental and subsegmental branches is degraded by streak and motion artifact. Heart: The heart is enlarged and without pericardial effusion. Lungs and pleural spaces: Evaluation of the lung parenchyma is moderately degraded by motion artifact . There is a small left pleural effusion with dependent consolidation. Dependent atelectasis is noted at the right lung base. There are scattered calcified granulomas. The trachea and central airways ar e clear. There is a 1.0 cm ovoid pulmonary nodule in the anterior left upper lobe seen on image #117. Mediastinum: There are numerous mildly enlarged mediastinal lymph nodes. A precarinal node measures 1 1 mm in short axis. Prevascular nodes measure up to 9 mm in short axis. A subcarinal node measures 17 mm short axis. Charo: Clear. Axillae: There is no axillary lymphadenopathy. There are large venous collaterals/varices identified in the left axilla. These are new from 08/06/2009. Upper abdomen: Partially visualized upper abdominal viscera is within normal limits. Skeletal structures: The skeletal structures are osteopenic. Mild degenerative change and hyperkyphos is is noted in the thoracic spine. There are mild chronic superior endplate compression deformities o f T3 and T5. No lytic or blastic bony lesions are seen. IMPRESSION: 1. Streak and motion compromised examination. 2. There is no evidence of central pulmonary embolus in the main, lobar, or proximal segmental pulmon torri arteries. Evaluation of the segmental and subsegmental branches is significantly degraded by clark on artifact. 3. Cardiomegaly. 4. Small left pleural effusion with dependent consolidation. This could represent atelectasis and/or pneumonia and clinical correlation will be required. Radiographic follow-up to resolution is recommen d. 5. There is a 10 mm ovoid left upper lobe pulmonary nodule. This has significantly increased in size dating back to 2009, and a low-grade lesion such as a carcinoid could have this appearance. Nonemerge nt/outpatient follow-up with pulmonology is recommended. 6. There are large venous collaterals/varices in the left axilla. These are new from 2010. 7. Mildly enlarged mediastinal lymph nodes are similar to 2010 and of indeterminate etiology/signific ance. 8. Additional findings as above. ACT 112: Positive. There are findings on this exam that require communication between the performing entity and the patient following Patient Test Result Information Act ([place] Act 112) guidelines. Electronically signed by: Mike Renae M.D. 11/23/2021 9:09 PM
[2021-11-23] MEDS ORDERED: PIPERACILLIN/TAZOBACTAM 4.5 GM in DEXTROSE 5% 100 ML IV ONE (21:20)
[2021-11-23] MEDS ORDERED: HYDROmorphone INJ 1 MG/ML SYRINGE IV STA (21:38)
[2021-11-23] MEDS ORDERED: POTASSIUM CHLORIDE CRTAB 20 MEQ TABCR PO STA (22:34)
[2021-11-23] MEDS ORDERED: DOXYCYCLINE HYCLATE 100 MG in DEXTROSE 5% 100 ML IV STA (22:35)
[2021-11-23] MEDS ORDERED: PIPERACILLIN/TAZOBACTAM 4.5 GM/120 ML BAG IV STA (22:35)
[2021-11-23] MEDS ORDERED: ONDANSETRON INJ 2 MG/ML 2 ML VIAL ONE (22:57)
--- NOTE | 2021-11-24 00:17 | History & Physical Report ---
Date of Service November 24, 2021 Assessment & Plan (1) Sepsis: Plan: Secondary to complicated pneumonia (Immunocompromised patient, hx SLE currently on CellCept patient off prednisone for about a year now) First noted on outpatient CAT scan last month Failed outpatient Levaquin treatment. Possible aspiration hypertension, elevated secondary to illness hypothyroidism, euthyroid as of recent outpatient TSH migraine/fibromyalgia, at baseline Medical telemetry CS, Doxycycline, Zosyn Pulmonology consult Re: Complicated pneumonia Aspiration precautions, [employer] eval Analgesia, titrate home BP meds DVT prophylaxis. Lovenox subcu Full code Text document was generated using [employer] voice recognition software. It may contain grammatical or spelling errors. Kindly contact undersigned for clarification of any documentation item in question. History of Present Illness Chief Complaint: Left-sided chest pain, cough, shortness of breath Primary Care Provider: Kiki Ferraro, History obtained from patient and records. Medical history significant for hypertension, valvular heart disease (mild MR/TR/AR on 2018 TTE ), SLE currently on CellCept, GERD, hypothyroidism migraine/fibromyalgia. Patient has had dry cough symptoms since January, when her housemates got COVID-19. Patient had a negative outpatient COVID-19 test. Patient completed COVID-19 vaccination. 2 months ago, patient noted pleuritic left-sided chest pain with dry cough symptoms and shortness of breath. Admits to coughing with meals/water intake which she attributes to tight esophagus which has been stretched before. Patient seen at PCP's office last month.. Abnormal dimer test prompted CT PE study CT chest showed minimal lung consolidation adjacent to left pleural effusion likely compressive atelectasis. 8.5 mm nodule anteromedial left upper lobe. Patient prescribed Levaquin and steroid course. Outpatient follow-up CT chest recommended after 3 months. Persistent respiratory symptoms despite compliance with antibiotic/steroid regimen. Patient unable to follow-up at PCPs office because she was busy moving into a new residence. [facility] ER visit 3 weeks ago for abdominal pain/diarrhea symptoms. Patient returned to ER for worsening shortness of breath and left-sided chest pain complaints. Zosyn administered at the ER. Medical History as above Surgical History : Dental surgery, cervix cryocautery, vascular procedures, tonsillectomy/adenoidectomy Family History : DM, heart disease, stroke Personal/Social history : Non-smoker, occasional EtOH intake, disabled Allergies Allergy/AdvReac Type Severity Reaction Status Date / Time chocolate flavor Allergy Intermediate migraines Verified 11/23/21 23:08 mold Allergy Intermediate allergy Verified 11/23/21 23:08 latex Allergy Mild `ALSO Verified 11/23/21 23:08 VINYL- BLISTERS mushroom AdvReac Intermediate n/v Verified 11/23/21 23:08 NSAIDS (Non-Steroidal AdvReac Unknown NO Verified 11/23/21 23:08 Anti-Inflamma ASA,IBUPROFEN,NAPROXEN,TORADOL PER DR MATTHEWS 12/22/09 Home Medications Medication Instructions Recorded Confirmed Type levothyroxine 75 mcg capsule 75 mg PO PM 01/08/18 11/23/21 History omeprazole 40 mg capsule,delayed 40 mg PO PM 01/08/18 11/23/21 History release albuterol sulfate 90 mcg/actuation 2 puff inhalation Q6 PRN Shortness 03/04/18 11/23/21 History aerosol inhaler Of Breath Or Wheezing cyclobenzaprine 10 mg tablet 20 mg PO HS 03/26/18 11/23/21 History mycophenolate mofetil 500 mg 500 mg PO BID 04/05/18 11/23/21 History tablet (CellCept) amlodipine 2.5 mg tablet 2.5 mg PO PM 07/23/20 11/23/21 History levocetirizine 5 mg tablet (Xyzal) 5 mg PO PM PRN seasonal allergies 07/23/20 11/23/21 History trazodone 50 mg tablet 50 mg PO HS 07/23/20 11/23/21 History cyclobenzaprine 10 mg tablet 10 mg PO DAILY PRN muscle spasm 11/23/21 11/23/21 History lisinopril 40 mg tablet 40 mg PO DAILY 11/23/21 11/23/21 History loratadine 10 mg tablet (Claritin) 10 mg PO DAILY 11/23/21 11/23/21 History meclizine 12.5 mg tablet 12.5 mg PO TID PRN DIZZY 11/23/21 11/23/21 History medroxyprogesterone 150 mg/mL 150 mg IM .[id number] 11/23/21 11/23/21 History intramuscular syringe promethazine 12.5 mg tablet 12.5 mg PO Q6H PRN Nausea 11/23/21 11/23/21 History Past Med/Surg History Medical History (Updated 11/24/21 @ 07:57 by Pascual Chaney MD, [facility]) Anxiety Asthma Fibromyalgia GERD (gastroesophageal reflux disease) Heart murmur History of DVT (deep vein thrombosis) Hypertension Hypothyroidism Memory changes Migraine headache Other psychological or physical stress, not elsewhere classified Raynaud phenomenon Raynauds disease Retinal arterial branch occlusion Systemic lupus erythematosus 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 Surgical History Fistula x6 L AC History of tonsillectomy and adenoidectomy Status post left foot surgery Status post tonsillectomy Social History Smoking Status: Never smoker Second Hand Exposure: Yes; Do You Dip or Chew Tobacco: No; Tobacco Cessation Education Requested by Patient: No Hx Alcohol Use: Yes Alcohol type: wine and hard liquor Hx Substance Use: No Preferred Language: Welsh Communication Ability: Effective Visual Impairment: No Limitations Hearing Ability: Normal Impregnation Operator Required: No Beliefs That Will Affect Care: None marital status: divorce Current Living Situation: Spouse Current Living Situation Comment: Lives w/ current occupational status: disabled Other Information That Helps Us Care for You: No Feels Safe at Home: Yes Safety Concerns: Feels Safe At This Time Assistive Devices: Denture - Upper, Denture - Lower and Glasses Review of Systems Review of Systems: As per HPI, all other systems reviewed and negative Physical Exam Physical Exam: GENERAL: slightly uncomfortable, anxious, no respiratory distress SKIN: Normal color, warm HEENT: Bespectacled, [place] palpebral conjunctivae, no ptosis, dry buccal mucosa NECK : Supple, no tenderness CHEST : Decreased breath sounds on the left, left chest wall tenderness tenderness HEART : Tachycardic, systolic murmur best heard over left sternal border ABDOMEN: Some distention, nontender EXTREMITIES : No LE swelling/tenderness, no other conspicuous deformities noted NEUROLOGIC : Coherent, no facial asymmetry, no other gross focality Results & Data Results & Data ([facility]) Vital Signs (Past 12 Hours) Vital Signs Temp Pulse Pulse Resp BP BP Pulse Ox 11/23/21 23:16 105 H 20 134/89 94 11/23/21 20:30 117 H 26 H 11/23/21 20:00 114 H 34 H 94 11/23/21 19:30 114 H 30 H 94 11/23/21 19:30 159/77 H 11/23/21 19:00 116 H 27 H 93 11/23/21 19:00 160/80 H 11/23/21 18:54 168/99 H 11/23/21 18:54 116 H 27 H 95 11/23/21 18:30 118 H 22 178/77 H 96 11/23/21 18:07 117 H 24 97 11/23/21 15:17 26 H 100 11/23/21 15:17 36.5 C 119 H 16 189/87 H 99 O2 Del Method 11/23/21 23:16 Room Air 11/23/21 20:30 11/23/21 20:00 11/23/21 19:30 11/23/21 19:30 11/23/21 19:00 11/23/21 19:00 11/23/21 18:54 11/23/21 18:54 11/23/21 18:30 11/23/21 18:07 11/23/21 15:17 Room Air 11/23/21 15:17 Laboratory Results Laboratory Results WBC 12.44 K/ul (4.8-10.8) H 11/23/21 18: RBC 4.04 M/uL (3.93-5.22) 11/23/21 18:23 Hgb 12.3 g/dl (12.0-16.0) 11/23/21 18: Hct 35.9 % (34.1-44.9) 11/23/21 18: MCV 88.9 fL (80.0-100.0) 11/23/21 18:23 MCH 30.4 pg (25.0-34.0) 11/23/21 18: MCHC 34.3 g/dL (32.0-36.0) 11/23/21 18: RDW Std Deviation 42.0 fL (36.4-46.3) 11/23/21 18: RDW Coeff of Leighton 12.8 % (11.5-14.5) 11/23/21 18: Plt Count 343 K/uL (130-400) 11/23/21 18:23 MPV 8.1 fL (9.4-12.3) L 11/23/21 18: Immature Gran % (Auto) 0.5 % 11/23/21 18: Neut % (Auto) 68.5 % 11/23/21 18:23 Lymph % (Auto) 18.6 % 11/23/21 18: [place] % (Auto) 9.9 % 11/23/21 18: Eos % (Auto) 2.0 % 11/23/21 18:23 Baso % (Auto) 0.5 % 11/23/21 18:23 Neut # (Auto) 8.52 K/uL (1.4-6.5) H 11/23/21 18: Lymph # (Auto) 2.32 K/uL (1.2-3.4) 11/23/21 18: [place]berry # (Auto) 1.23 K/uL (0.24-0.82) H 11/23/21 18:23 Eos # (Auto) 0.25 K/uL (0-0.50) 11/23/21 18: Baso # (Auto) 0.06 K/uL (0-0.2) 11/23/21 18: Immature Gran # (Auto) 0.06 K/uL (0.00-0.02) H 11/23/21 18: D-Dimer 1920 ug/L FEU (0-500) H* 11/23/21 18: Sodium 135 mmol/L (136-145) L 11/23/21 18: Potassium 3.7 mmol/L (3.5-5.1) 11/23/21 18: Chloride 105 mmol/L (98-107) 11/23/21 18:23 Carbon Dioxide 21 mmol/L (21-32) 11/23/21 18:23 Anion Gap 9 (3-11) 11/23/21 18:23 BUN 8 mg/dl (6-23) 11/23/21 18: Creatinine 0.65 mg/dl (0.6-1.2) 11/23/21 18: Est Cr Clr Drug Dosing 102.5 ml/min 11/23/21 18:23 Est GFR ( Amer) 120.0 ml/min 11/23/21 18: Est GFR (Non-Af Amer) 103.5 ml/min 11/23/21 18:23 BUN/Creatinine Ratio 12.3 (10-20) 11/23/21 18:23 Glucose 109 mg/dl (70-99(Fasting)) H 11/23/21 18:23 Calcium 8.9 mg/dl (8.5-10.1) 11/23/21 18:23 Magnesium 1.7 mg/dl (1.7-2.4) 11/23/21 18:23 Total Bilirubin 0.5 mg/dl (0.2-1.0) 11/23/21 18:23 AST 13 U/L (13-39) 11/23/21 18:23 ALT 11 U/L (7-52) 11/23/21 18: Alkaline Phosphatase 94 U/L (34-104) 11/23/21 18:23 Troponin I High Sens 6.7 pg/ml (0-14) 11/23/21 18: Total Protein 6.5 gm/dl (6.0-8.3) 11/23/21 18:23 Albumin 3.7 gm/dl (3.4-5.0) 11/23/21 18:23 Globulin 2.8 gm/dl (2.5-4.0) 11/23/21 18:23 Albumin/Globulin Ratio 1.3 (0.9-2) 11/23/21 18:23 Lipase 31 U/L (11-82) 11/23/21 18:23 SARS-CoV-2, RNA, NAAT NEGATIVE (NEGATIVE) 11/23/21 23:03 Impressions Chest CTA 11/23/21 16:03 CT ANGIOGRAM OF THE CHEST CLINICAL HISTORY: Atypical chest pain COMPARISON STUDY: Chest x-ray dated 11/23/2021. Chest CT dated 08/06/2009. TECHNIQUE: Following the IV administration of 108 cc of Optiray 300, CT angiogram of the chest was performed from the upper abdomen to the thoracic inlet utilizing the pulmonary embolus protocol. Images are reviewed in the axial, sagittal, and coronal planes. 3-D MIPS images are created and assessed. IV contrast was administered without complication. A dose lowering technique was utilized adhering to the principles of ALARA. The examination is degraded by streak artifact from the arms which could not be elevated above the chest as well as patient motion. CT DOSE: 654.70 mGy.cm FINDINGS: Thyroid: Imaged portions of the thyroid gland are normal in size and attenuation. Thoracic aorta: The thoracic aorta is normal in caliber and demonstrates standard 3-vessel arch anatomy. No dissection is seen. Pulmonary vasculature: The pulmonary trunk is normal in caliber. There are no filling defects identified in main, lobar, or segmental proximal pulmonary branches to suggest pulmonary embolus. Evaluation of the segmental and subsegmental branches is degraded by streak and motion artifact. Heart: The heart is enlarged and without pericardial effusion. Lungs and pleural spaces: Evaluation of the lung parenchyma is moderately degraded by motion artifact. There is a small left pleural effusion with dependent consolidation. Dependent atelectasis is noted at the right lung base. There are scattered calcified granulomas. The trachea and central airways are clear. There is a 1.0 cm ovoid pulmonary nodule in the anterior left upper lobe seen on image #117. Mediastinum: There are numerous mildly enlarged mediastinal lymph nodes. A precarinal node measures 11 mm in short axis. Prevascular nodes measure up to 9 mm in short axis. A subcarinal node measures 17 mm short axis. Charo: Clear. Axillae: There is no axillary lymphadenopathy. There are large venous collaterals/varices identified in the left axilla. These are new from 08/06/2009. Upper abdomen: Partially visualized upper abdominal viscera is within normal limits. Skeletal structures: The skeletal structures are osteopenic. Mild degenerative change and hyperkyphosis is noted in the thoracic spine. There are mild chronic superior endplate compression deformities of T3 and T5. No lytic or blastic bony lesions are seen. IMPRESSION: 1. Streak and motion compromised examination. 2. There is no evidence of central pulmonary embolus in the main, lobar, or proximal segmental pulmonary arteries. Evaluation of the segmental and subsegmental branches is significantly degraded by motion artifact. 3. Cardiomegaly. 4. Small left pleural effusion with dependent consolidation. This could represent atelectasis and/or pneumonia and clinical correlation will be required. Radiographic follow-up to resolution is recommend. 5. There is a 10 mm ovoid left upper lobe pulmonary nodule. This has significantly increased in size dating back to 2009, and a low-grade lesion such as a carcinoid could have this appearance. Nonemergent/outpatient follow-up with pulmonology is recommended. 6. There are large venous collaterals/varices in the left axilla. These are new from 2010. 7. Mildly enlarged mediastinal lymph nodes are similar to 2010 and of indeterminate etiology/significance. 8. Additional findings as above. ACT 112: Positive. There are findings on this exam that require communication between the performing entity and the patient following Patient Test Result Information Act ([place] Act 112) guidelines. Electronically signed by: Mike Renae M.D. 11/23/2021 9:09 PM Chest X-Ray 11/23/21 18:00 SINGLE VIEW CHEST CLINICAL HISTORY: Atypical chest pain FINDINGS: An AP, portable, upright chest radiograph is compared to study dated 11/07/2021. The heart is enlarged. There is pulmonary vascular congestion with mild pulmonary edema. There are left lower thorax pleural effusions with bibasilar consolidation. No pneumothorax is seen. The skeletal structures are osteopenic. The bony thorax is grossly intact. IMPRESSION: 1. Cardiomegaly with evidence of congestive failure and pulmonary edema. 2. Left larger than right pleural effusions with dependent consolidation. ACT 112: Negative or not required by law. Electronically signed by: Mike Renae M.D. 11/23/2021 7:27 PM Diagnostic Findings EKG as per my interpretation : Rate 115, sinus tachycardia, normal axis, T wave flattening inferior leads
[2021-11-24] MEDS ORDERED: PROMETHAZINE HCL 12.5 MG in SODIUM CHLORIDE 0.9% 50 ML IV PRN (00:30)
[2021-11-24] MEDS ORDERED: MAGNESIUM SULFATE / D5W 1 GM/100 ML BAG IV STA (00:34)
[2021-11-24] MEDS ORDERED: LACTATED RINGER'S 1,000 ML IV STA (00:35)
[2021-11-24] MEDS ORDERED: LIDOCAINE 5% 1 PATCH TD STA (00:36)
[2021-11-24] MEDS ORDERED: CYCLOBENZAPRINE HCL 10 MG TAB PO PRN (01:58)
[2021-11-24] MEDS ORDERED: traMADol HCL 50 MG TABLET PO PRN (01:58)
[2021-11-24] MEDS ORDERED: ACETAMINOPHEN 325 MG TAB PO PRN (01:58)
[2021-11-24] MEDS: traZODone HCL 50 MG TAB PO SCH ×2 (02:27→20:52)
[2021-11-24] MEDS: PIPERACILLIN/TAZOBACTAM 3.375 GM in DEXTROSE 5% 100 ML IV SCH ×3 (05:59→21:05)
[2021-11-24] MEDS: LEVOTHYROXINE SODIUM 75 MCG TABLET PO SCH (05:59)
[2021-11-24] MEDS: guaiFENesin 600 MG TABCR PO SCH ×2 (06:22→20:52)
[2021-11-24 07:01] LABS: Basophils # (auto) 0.05 K/uL (0-0.2); Basophils % (auto) 0.4 %; Eosinophils % (auto) 0.8 %; Hematocrit (blood only) 34.3 % (34.1-44.9); Hemoglobin 11.8 g/dl (12.0-16.0); Immature Granulocytes # (auto) 0.06 K/uL (0.00-0.02); Immature Granulocytes % (auto) 0.5 %; Lymphocytes # (auto) 2.51 K/uL (1.2-3.4); Lymphocytes % (auto) 19.8 %; Mean Corpuscular Hemoglobin 30.9 pg (25.0-34.0); Mean Corpuscular Hgb Conc 34.4 g/dL (32.0-36.0); Mean Corpuscular Volume 89.8 fL (80.0-100.0); Mean Platelet Volume 8.3 fL (9.4-12.3); Monocytes # (auto) 1.28 K/uL (0.24-0.82); Monocytes % (auto) 10.1 %; Neutrophils # (auto) 8.66 K/uL (1.4-6.5); Neutrophils % (auto) 68.4 %; Platelet Count 319 K/uL (130-400); RDW Coefficient of Variation 12.9 % (11.5-14.5); RDW Standard Deviation 42.4 fL (36.4-46.3); Red Blood Count 3.82 M/uL (3.93-5.22); White Blood Count 12.66 K/ul (4.8-10.8)
[2021-11-24 07:31] LABS: BUN Creatinine Ratio 12.5 (10-20); Calcium 8.7 mg/dl (8.5-10.1); Creatinine Clr Calc Pharmacy 103.9 ml/min; Est GFR (African American) 120.6 ml/min; Est GFR (Non-African American) 104.1 ml/min; Potassium 4.4 mmol/L (3.5-5.1)
--- NOTE | 2021-11-24 07:57 | Pulmonary Consultation ---
Date of Consultation November 24, 2021 Assessment & Plan (1) Pleural effusion: (2) Abnormal chest CT: (3) Pulmonary nodule: Plan CT chest 11/23/2021 personally reviewed: Small to moderate left-sided pleural effusion with dependent left lower lobe atelectasis Left upper lobe 10 mm nodularity Minimal mediastinal lymphadenopathy, subcarinal lymph node 1.7 cm Patient did have a CT abdomen pelvis done 11/09/2021 which showed minimal left- sided pleural effusion -- Left pleural effusion Progressively getting worse since last 2 weeks Possibility of parapneumonic effusion is there Patient also has SLE which can give pleural effusions although patient never had pleural effusions in the past. COVID-19 NAAT negative Procalcitonin 0.07 Nasal MRSA negative --Systemic lupus erythematous On mycophenolate --Left upper lobe pulmonary nodule [address] chest in 6 months to make sure this is stable Patient is a lifetime non-smoker and there is no family history of any lung can cer. Plan: We will do a bedside ultrasound if there is a good pocket then we will to perform thoracentesis today I did explain to the patient the risk and benefits. She is understanding and agreeable to She does have history of anxiety and was asking if anything can be given prior to the procedure. I told that it is usually done under local anesthesia and if need be I can give her some pain pills prior to that. Please note the above document was generated using voice recognition software. It may contain grammatical, syntax or spelling errors.Any formal questions or concerns about the content, text or information contained within the body of this dictation should be directly addressed to the provider for clarification. History of Present Illness Attending Physician: Nadine Doll DO History of Present Illness 51-year-old female presented to the hospital for shortness of breath Past medical history: SLE on mycophenolate since 2010, hypothyroidism, GERD, hypertension Pulmonary consulted for left-sided pleural effusion Patient has been having issues with shortness of breath and left-sided chest pain for approximately 3 weeks She did complete course of azithromycin as an outpatient She was still complaining of left-sided chest pain this reason she came to the hospital At the time of examination she was saturating 95-96% on room air with heart rate of 84 She does complain of pain especially on the back with spasm which has been going on for a while progressively worse in the last 3 or 4 weeks. Denies any nausea or vomiting, no headache, no dysuria, no diarrhea. Does bring up clear phlegm without hemoptysis Has never had any fluid taken out from her lungs before Social history: Lifetime non-smoker Allergies Allergy/AdvReac Type Severity Reaction Status Date / Time chocolate flavor Allergy Intermediate migraines Verified 11/23/21 23:08 mold Allergy Intermediate allergy Verified 11/23/21 23:08 latex Allergy Mild `ALSO Verified 11/23/21 23:08 VINYL- BLISTERS mushroom AdvReac Intermediate n/v Verified 11/23/21 23:08 NSAIDS (Non-Steroidal AdvReac Unknown NO Verified 11/23/21 23:08 Anti-Inflamma ASA,IBUPROFEN,NAPROXEN,TORADOL PER DR MATTHEWS 12/22/09 Home Medications Medication Instructions Recorded Confirmed Type levothyroxine 75 mcg capsule 75 mg PO PM 01/08/18 11/23/21 History omeprazole 40 mg capsule,delayed 40 mg PO PM 01/08/18 11/23/21 History release albuterol sulfate 90 mcg/actuation 2 puff inhalation Q6 PRN Shortness 03/04/18 11/23/21 History aerosol inhaler Of Breath Or Wheezing cyclobenzaprine 10 mg tablet 20 mg PO HS 03/26/18 11/23/21 History mycophenolate mofetil 500 mg 500 mg PO BID 04/05/18 11/23/21 History tablet (CellCept) amlodipine 2.5 mg tablet 2.5 mg PO PM 07/23/20 11/23/21 History levocetirizine 5 mg tablet (Xyzal) 5 mg PO PM PRN seasonal allergies 07/23/20 11/23/21 History trazodone 50 mg tablet 50 mg PO HS 07/23/20 11/23/21 History cyclobenzaprine 10 mg tablet 10 mg PO DAILY PRN muscle spasm 11/23/21 11/23/21 History lisinopril 40 mg tablet 40 mg PO DAILY 11/23/21 11/23/21 History loratadine 10 mg tablet (Claritin) 10 mg PO DAILY 11/23/21 11/23/21 History meclizine 12.5 mg tablet 12.5 mg PO TID PRN DIZZY 11/23/21 11/23/21 History medroxyprogesterone 150 mg/mL 150 mg IM .[id number] 11/23/21 11/23/21 History intramuscular syringe promethazine 12.5 mg tablet 12.5 mg PO Q6H PRN Nausea 11/23/21 11/23/21 History Patient History Medical History (Updated 11/24/21 @ 13:58 by Nadine Doll DO) Anxiety Asthma Fibromyalgia GERD (gastroesophageal reflux disease) Heart murmur History of DVT (deep vein thrombosis) Hypertension Hypothyroidism Memory changes Migraine headache Other psychological or physical stress, not elsewhere classified Raynaud phenomenon Raynauds disease Retinal arterial branch occlusion Systemic lupus erythematosus 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 Surgical History Fistula x6 L AC History of tonsillectomy and adenoidectomy Status post left foot surgery Status post tonsillectomy Social History Smoking Status: Never smoker Second Hand Exposure: Yes; Do You Dip or Chew Tobacco: No; Tobacco Cessation Education Requested by Patient: No Hx Alcohol Use: Yes Alcohol type: wine and hard liquor Hx Substance Use: No Preferred Language: Ukrainian Communication Ability: Effective Visual Impairment: No Limitations Hearing Ability: Normal [employer]oc[employer] Detailer Required: No Beliefs That Will Affect Care: None marital status: divorce Current Living Situation: Spouse Current Living Situation Comment: Lives w/ current occupational status: disabled Other Information That Helps Us Care for You: No Feels Safe at Home: Yes Safety Concerns: Feels Safe At This Time Assistive Devices: Denture - Upper, Denture - Lower and Glasses Review of Systems Review of Systems: All systems reviewed & are unremarkable except as noted in HPI & below Physical Exam Physical Exam: Constitutional: No acute distress HEENT: EOMI, PERRLA Respiratory system: Decreased air entry bilaterally, more decreased on the left side, no wheeze, no rhonchi, positive crackles bilaterally more on the left CVS: S1-S2 positive, no murmurs or gallops Abdomen: Soft, nontender, nondistended, positive bowel sounds x4 Extremities: +2 pulses bilaterally radialis/ dorsalis pedis, no cyanosis, no edema Neuro: Awake alert oriented x3 Psych: Normal mood and affect G/U: No Muller Skin: no rashes, warm and dry Lymphatic: no cervical or axillary lymphadenopathy Results & Data Results & Data ([facility] [place]) Vital Signs (Past 12 Hours) Vital Signs Temp Pulse Pulse Resp BP BP Pulse Ox 11/24/21 07:40 36.7 C 101 H 16 127/68 92 11/24/21 07:22 90 11/24/21 02:30 11/24/21 01:58 36.4 C L 94 H 22 123/79 95 11/24/21 01:58 11/24/21 01:00 93 11/24/21 01:00 146/92 H 11/24/21 00:30 92 11/24/21 00:00 92 11/24/21 00:00 128/89 11/23/21 23:30 91 11/23/21 23:16 94 11/23/21 23:16 134/89 11/23/21 23:15 94 11/23/21 23:16 105 H 20 134/89 94 11/23/21 20:30 117 H 26 H 11/23/21 20:00 114 H 34 H 94 Pulse Ox O2 Del Method O2 Del Method 11/24/21 07:40 Room Air 11/24/21 07:22 11/24/21 02:30 Room Air 11/24/21 01:58 Room Air 11/24/21 01:58 95 Room Air 11/24/21 01:00 11/24/21 01:00 11/24/21 00:30 11/24/21 00:00 11/24/21 00:00 11/23/21 23:30 11/23/21 23:16 11/23/21 23:16 11/23/21 23:15 11/23/21 23:16 Room Air 11/23/21 20:30 11/23/21 20:00 Laboratory Results 11/24/21 06:23 11/24/21 06:23 PG Care Time/CCT Total # of Minutes Spent Total Time Spent with Patient: Total time spent is greater than 50% in coordination of care (as documented) at patient's floor/unit and/or counseling patient: Coding Level of Care Code 49582 Initial Inpt Care Lvl 3 Diagnoses Pleural effusion J90 Abnormal chest CT R93.89 Pulmonary nodule R91.1
[2021-11-24] MEDS: DOXYCYCLINE HYCLATE 100 MG CAP PO SCH ×2 (08:17→20:52)
[2021-11-24] MEDS: lisinopril 40 MG TAB PO SCH (08:20)
[2021-11-24] MEDS: LORATADINE 10 MG TAB PO SCH (08:20)
[2021-11-24] MEDS: XYZAL~ORDER AWAITING ACTION SCH ×3 (08:21→23:06)
--- NOTE | 2021-11-24 08:40 | Electrocardiogram Report ---
Test Reason : Blood Pressure : / mmHG Vent. Rate : 116 BPM Atrial Rate : 116 BPM P-R Int : 132 ms QRS Dur : 064 ms QT Int : 300 ms P-R-T Axes : 016 006 020 degrees QTc Int : 417 ms Sinus tachycardia Minimal voltage criteria for LVH, may be normal variant Borderline ECG When compared with ECG of 02-APR-2019 17:45, Nonspecific T wave abnormality now evident in Inferior leads Confirmed by Judson Judge ([id number]) on 11/24/2021 8:40:01 AM Referred By: REFERRED SELF Confirmed By:Judson Judge
[2021-11-24] MEDS ORDERED: MYCOPHENOLATE MOFETIL 250 MG CAP PO SCH (09:00)
[2021-11-24] MEDS ORDERED: ENOXAPARIN INJ 40 MG/0.4 ML SYR SQ SCH (09:00)
--- NOTE | 2021-11-24 13:48 | Hospitalist Progress Note ---
Date of Service November 24, 2021 Assessment & Plan (1) Sepsis: Plan: Secondary to complicated pneumonia in immunocompromised patient. Likely failed outpatient antibiotic treatment. Per pulmonology us will evaluate for fluid and will consider thoracentesis at bedside today. She is not much improved on Zosyn and doxycycline started overnight. Cont pain management and await full pulmonary evaluation. (2) Pneumonia: Plan: L>R pleural effusion with dependent consolidation. Cont current abx and thoracentesis evaluation by pulm today. (3) Systemic lupus erythematosus: Plan: On mycophenolate mofetil for h/o lupus nephritis. Will hold this in the setting of active infection. There is no evidence of active lupus flare--no cytopenias, no rash, joint pain, etc. Will obtain UA to check for hematuria. Hold CellCept until she is improved. (4) Hypothyroidism: Plan: chronic, stable. Cont synthroid per home regimen. (5) Pulmonary nodule: Plan: 10 mm ovoid left upper lobe pulmonary nodule. This has significantly increased in size dating back to 2009, and a low-grade lesion such as a carcinoid could have this appearance. Non-urgent outpatient follow-up with pulmonology recommended. (6) Hypertension: Plan: chronic, at goal. Cont lisinopril per home regimen. (7) DVT prophylaxis: Plan: Lovenox Full Code Dispo-to home pending clinical improvement with therapy. Nadine Doll DO [facility] Hospitalist Admission and Anticipated Discharge Date Admission Date: November 24, 2021 Subjective 51-year-old female presented to the ED for evaluation of left lateral chest pain. She had pneumonia approximately 1 month ago and has persistently significant pain. Today she reports severe pain that is persistent in the left lateral chest +pleurisy SOB present because of dsicomfort. Tolerating PO Flexeril is used daily for severe migraines and she has been using this abd Ibuproen at home to manage the pain. Patient lives in a camper. Review of Systems Review of Systems: All systems were reviewed and negative except as indicated on subjective above. Physical Exam Physical Exam: CONSTITUTIONAL: WNWD, vitals as above, generally well- appearing EYES: normal conjuctivae, no scleral icterus ENT: external ear and nose normal, MMM NECK: trachea midline, MMM RESPIRATORY: decreased breath sounds at bilateral bases with mild crackles, no crackles, rales or wheezes, normal respiratory effort CARDIOVASCULAR: regular rate and rhythm, S1 and 2 heard without murmurs, gallops or rubs, no JVD, no peripheral edema CHEST: inspection of chest was normal GASTROINTESTINAL: soft, nontender, no hepatomegaly, no guarding MUSCULOSKELETAL: strength 5/5 throughout, head is normocephalic and atraumatic, neck supple, normal palpation of chest wall without tenderness SKIN: warm and dry NEUROLOGIC: CN 2-12 grossly intact, no sensory deficit, normal cognition, normal speech, no tremor PSYCHIATRIC: alert cooperative and oriented to person, place and time. Results & Data Results & Data ([facility]) Vital Signs (Past 12 Hours) Vital Signs Temp Pulse Pulse Resp BP Pulse Ox Pulse Ox 11/24/21 12:07 36.8 C 94 H 18 129/72 94 11/24/21 07:40 36.7 C 101 H 16 127/68 92 11/24/21 07:22 90 11/24/21 02:30 11/24/21 01:58 36.4 C L 94 H 22 123/79 95 11/24/21 01:58 95 O2 Del Method O2 Del Method 11/24/21 12:07 Room Air 11/24/21 07:40 Room Air 11/24/21 07:22 11/24/21 02:30 Room Air 11/24/21 01:58 Room Air 11/24/21 01:58 Room Air Laboratory Results Short CBC 11/23/21 11/24/21 Range/Units 18:23 06:23 WBC 12.44 H 12.66 H (4.8-10.8) K/ul Hgb 12.3 11.8 L (12.0-16.0) g/dl Hct 35.9 34.3 (34.1-44.9) % Plt Count 343 319 (130-400) K/uL BMP 11/23/21 11/24/21 18:23 06:23 Sodium 135 L 133 L Potassium 3.7 4.4 Chloride 105 105 Carbon Dioxide 21 21 BUN 8 8 Creatinine 0.65 0.64 Glucose 109 H 119 H Calcium 8.9 8.7 Liver Function 11/23/21 Range/Units 18:23 Total Bilirubin 0.5 (0.2-1.0) mg/dl AST 13 (13-39) U/L ALT 11 (7-52) U/L Alkaline Phosphatase 94 (34-104) U/L Albumin 3.7 (3.4-5.0) gm/dl Medications Administered Current Inpatient Medications Acetaminophen (Acetaminophen 325 Mg Tab) 650 mg PO Q4H PRN PRN Reason: Pain or Fever Stop: 12/24/21 01:57 Amlodipine Besylate (Amlodipine Besylate 5 Mg Tab) 2.5 mg PO PM NAIF Stop: 12/24/21 20:59 Cyclobenzaprine HCl (Cyclobenzaprine Hcl 10 Mg Tab) 20 mg PO HS NAIF Stop: 12/24/21 20:59 Cyclobenzaprine HCl (Cyclobenzaprine Hcl 10 Mg Tab) 10 mg PO DAILY PRN PRN Reason: muscle spasm Stop: 12/24/21 01:57 Last Admin: 11/24/21 03:44 Dose: 10 mg Doxycycline Hyclate (Doxycycline Hyclate 100 Mg Cap) 100 mg PO BID NAIF Stop: 12/01/21 08:59 Last Admin: 11/24/21 08:17 Dose: 100 mg Enoxaparin Sodium (Enoxaparin Inj 40 Mg/0.4 Ml Syr) 40 mg SQ QAM NAIF Stop: 12/24/21 08:59 Last Admin: 11/24/21 08:17 Dose: 40 mg Guaifenesin (Guaifenesin 600 Mg Tabcr) 600 mg PO Q12 NAIF Stop: 12/24/21 06:04 Last Admin: 11/24/21 06:22 Dose: 600 mg Promethazine HCl 12.5 mg/ (Sodium Chloride) 50.5 mls @ 202 mls/hr IV Q6H PRN PRN Reason: Nausea And Vomiting Stop: 12/24/21 00:29 Piperacillin Sod/Tazobactam (Sod 3.375 gm/ Dextrose) 115 mls @ 28.75 mls/hr IV Q8H NAIF; Protocol Stop: 12/01/21 05:59 Last Infusion: 11/24/21 09:59 Dose: Infused Levothyroxine Sodium (Levothyroxine Sodium 75 Mcg Tablet) 75 mcg PO DAILYBB NAIF Stop: 12/24/21 06:29 Last Admin: 11/24/21 05:59 Dose: 75 mcg Lidocaine (Lidocaine 5% 1 Patch) 1 patch TD HS NAIF Stop: 12/24/21 20:59 Lisinopril (Lisinopril 40 Mg Tab) 40 mg PO DAILY NAIF Stop: 12/24/21 08:59 Last Admin: 11/24/21 08:20 Dose: 40 mg Loratadine (Loratadine 10 Mg Tab) 10 mg PO DAILY NAIF Stop: 12/24/21 08:59 Last Admin: 11/24/21 08:20 Dose: 10 mg Miscellaneous (Remove Lidoderm Patch) 1 each N/A QAM NAIF Stop: 12/24/21 08:59 Last Admin: 11/24/21 08:21 Dose: 1 each Miscellaneous (Xyzal~Order Awaiting Action) 1 each N/A QS NAIF Stop: 12/24/21 07:59 Last Admin: 11/24/21 08:21 Dose: Not Given Mycophenolate Mofetil (Mycophenolate Mofetil 250 Mg Cap) 500 mg PO BID NAIF Stop: 12/24/21 08:59 Last Admin: 11/24/21 08:17 Dose: 500 mg Pantoprazole Sodium (Pantoprazole 40 Mg Tab) 40 mg PO PM NAIF Stop: 12/24/21 20:59 Tramadol HCl (Tramadol Hcl 50 Mg Tablet) 25 - 50 mg PO Q4H PRN PRN Reason: Pain Stop: 12/24/21 01:57 Trazodone HCl (Trazodone Hcl 50 Mg Tab) 50 mg PO HS NAIF Stop: 12/24/21 01:57 Last Admin: 11/24/21 02:27 Dose: 50 mg (1) Pneumonia Laterality: left Lung location: unspecified part of lung Pneumonia type: due to unspecified organism Qualified Code(s): J18.9 - Pneumonia, unspecified organism
[2021-11-24] MEDS ORDERED: MIDAZOLAM HCL 1 MG/ML 2ML VIAL IV ONE (15:39)
[2021-11-24] MEDS ORDERED: MoRPHine SULFATE 2 MG/ML CARP IV ONE (15:39)
[2021-11-24] MEDS ORDERED: MoRPHine SULFATE 2 MG/ML CARP IV STA (16:06)
[2021-11-24] MEDS ORDERED: ONDANSETRON INJ 2 MG/ML 2 ML VIAL IV PRN (16:07)
--- NOTE | 2021-11-24 16:48 | Procedure Note ---
Procedure Note Date of Service November 24, 2021 Note Bedside Ultrasound: Lung: Right side: No pleural effusion, B-lines appreciated posteriorly Left side: Small left-sided pleural effusion with atelectatic left lower lobe, no loculations Please note the above document was generated using voice recognition software. It may contain grammatical, syntax or spelling errors.Any formal questions or concerns about the content, text or information contained within the body of this dictation should be directly addressed to the provider for clarification. Coding CPT Codes Pulmonary/Thoracic - Pulmonary and Thoracic: 70408 US, Chest, real time with imaging documentation ([id number]) [facility] [place]odes (Charges) Pulmonary/Thoracic Procedure 1: Pulmonary and Thoracic: 62853 US, Chest, real time with imaging documentation
--- NOTE | 2021-11-24 16:50 | Procedure Note ---
Procedure Note Date of Service November 24, 2021 Note Procedure: Diagnostic therapeutic ultrasound-guided catheter thoracentesis Certified Pediatric Nurse Practitioner: Dr. Pascual Chaney Indication: Left pleural effusion Consent: Signed by patient and verified with timeout prior to procedure Anesthesia: 1% lidocaine without epinephrine local. Procedure: Consent was verified and timeout performed. Appropriate imaging studies were reviewed prior to the procedure. Patient was placed in a seated position and limited thoracic ultrasound was performed of the left chest. See separate imaging. Appropriate site above the diaphragm for thoracentesis was selected. The skin was prepped and draped in normal sterile fashion. Lidocaine was used for local analgesia. Fluid was aspirated via the finder needle. A small skin kalyani was made with the scalpel and the catheter over the needle apparatus was advanced over the rib into the pleural space. Using the syringe one-way valve system, a total of 350 mL's of cloudy serous with greenish tinge fluid was removed. The catheter was removed and observed to be intact. A sterile dressing was applied. Post procedure chest x-ray was ordered. Fluid was sent for labs, culture and cytology. Good lung sliding appreciated postprocedure Complications: None Blood loss: None Coding CPT Codes Pulmonary/Thoracic - Pulmonary and Thoracic: 20634 Thoracentesis w imaging ([id number]) [facility] [place] Procedure Codes (Charges) Pulmonary/Thoracic Procedure 1: Pulmonary and Thoracic: 69783 Thoracentesis w imaging
--- NOTE | 2021-11-24 17:14 | XRay Report ---
XR chest 1V portable HISTORY: 51 years-old Female S/P Thoracentesis follow-up study in a patient with pleural effusion COMPARISON: Chest radiograph and CTA chest 11/23/2021 TECHNIQUE: Portable AP view of the chest FINDINGS: Small left pleural effusion has slightly decreased in size from prior. No postprocedural pneumothorax identified. Cardiac megaly with pulmonary vascular congestion and interstitial coarsening. Mild left greater than right bibasilar opacities. Degenerative changes of the shoulders and spine. IMPRESSION: 1. Mildly decreased size of the small left pleural effusion status post thoracentesis. No postprocedu ral pneumothorax identified. 2. Cardiomegaly with pulmonary vascular congestion. ACT 112: Negative or not required by law. The above report was generated using voice recognition software. It may contain grammatical, syntax o r spelling errors. Electronically signed by: Daniel Taveras M.D. 11/24/2021 5:13 PM
[2021-11-24 17:45] LABS: Total Protein Pleural Fluid 4.1 gm/dl
[2021-11-24 18:00] LABS: Albumin Level 3.7 gm/dl (3.4-5.0); Bilirubin,Total 0.9 mg/dl (0.2-1.0); Total Protein 6.7 gm/dl (6.0-8.3)
[2021-11-24 18:22] LABS: Appearance Pleural Fluid Hazy; Basophils, Fluid 1 %; Color Pleural Fluid Straw; Eosinophils, Fluid 5 %; Lymphocytes, Fluid 58 %; Mono,Macrophage,Mesothelial 13 %; Neutrophils, Fluid 23 %; RBC Pleural Fluid (A) < 2000 /uL; Source Pleural Fluid Left Lung; WBC Pleural Fluid (A) 2341 /uL
[2021-11-24 19:32] LABS: Appearance Urine Clear (Clear); Bacteria Urine Automated Negative (Negative); Bilirubin Urine Negative (Negative); Blood Urine Trace (Negative); Color Urine Yellow; Epithelial Cell Urine Auto 20-30 /lpf (0-5); Glucose Urine UA Negative (Negative); Ketones Urine Negative (Negative); Leukocyte Esterase Urine Trace (Negative); Nitrite Urine Negative (Negative); Protein Urine Negative (Negative); RBC Urine Automated 0-4 /hpf (0-4); Specific Gravity Urine 1.006 (1.000-1.030); Urobilinogen Urine Negative (Negative); pH Urine 5.5 (4.5-7.5)
[2021-11-24] MEDS ORDERED: LIDOCAINE 5% 1 PATCH TD SCH (21:00)
[2021-11-24] MEDS ORDERED: PANTOprazole 40 MG TAB PO SCH (21:00)
[2021-11-24] MEDS ORDERED: amLODIPine BESYLATE 5 MG TAB PO SCH (21:00)
[2021-11-24] MEDS ORDERED: CYCLOBENZAPRINE HCL 10 MG TAB PO SCH (21:00)
[2021-11-25] MEDS: PIPERACILLIN/TAZOBACTAM 3.375 GM in DEXTROSE 5% 100 ML IV SCH ×2 (05:42→14:47)
[2021-11-25] MEDS: LEVOTHYROXINE SODIUM 75 MCG TABLET PO SCH (05:42)
[2021-11-25] MEDS: guaiFENesin 600 MG TABCR PO SCH (08:20)
[2021-11-25] MEDS: XYZAL~ORDER AWAITING ACTION SCH ×2 (08:20→16:00)
[2021-11-25] MEDS: LORATADINE 10 MG TAB PO SCH (08:21)
[2021-11-25] MEDS: DOXYCYCLINE HYCLATE 100 MG CAP PO SCH (08:21)
[2021-11-25] MEDS: lisinopril 40 MG TAB PO SCH (08:21)
[2021-11-25] MEDS ORDERED: NAPROXEN 250 MG TAB PO STA (10:32)
--- NOTE | 2021-11-25 10:43 | Pulmonology Progress Note ---
Date of Service November 25, 2021 Assessment & Plan (1) Pleural effusion: (2) Abnormal chest CT: (3) Pulmonary nodule: Plan CT chest 11/23/2021 personally reviewed: Small to moderate left-sided pleural effusion with dependent left lower lobe atelectasis Left upper lobe 10 mm nodularity Minimal mediastinal lymphadenopathy, subcarinal lymph node 1.7 cm Patient did have a CT abdomen pelvis done 11/09/2021 which showed minimal left- sided pleural effusion -- Left pleural effusion Progressively getting worse since last 2 weeks Possibility of parapneumonic effusion is there Patient also has SLE which can give pleural effusions although patient never had pleural effusions in the past. S/p thoracentesis 11/24/21, Exudative as per lite's criteria Pleural Fluid: LDH 498, Protein 4.1 , pH 7.37, Glucose 80 Serum: LDH 71 , Protein 6.7 The fluid could be parapneumonic or it could be related to underlying lupus. Follow-up culture COVID-19 NAAT negative Procalcitonin 0.07 Nasal MRSA negative --Systemic lupus erythematous On mycophenolate --Left upper lobe pulmonary nodule [address] chest in 6 months to make sure this is stable Patient is a lifetime non-smoker and there is no family history of any lung cancer. Plan: Would recommend to continue with antibiotics for total of 10 days Follow-up culture from the fluid Would recommend giving pain medication and continue with incentive spirometry. Case was discussed with Dr. Doll Please note the above document was generated using voice recognition software. It may contain grammatical, syntax or spelling errors.Any formal questions or concerns about the content, text or information contained within the body of this dictation should be directly addressed to the provider for clarification. Admission and Anticipated Discharge Date Admission Date: November 24, 2021 Subjective Patient seen and examined at bedside. No acute distress. She is feeling better compared to yesterday. Does complain of still chest pain when she takes deep breath and on the left side. Able to do more compared to yesterday No headache, no fever or chills No nausea vomiting Fair appetite Review of Systems Review of Systems: All systems reviewed & are unremarkable except as noted in Subjective Physical Exam Physical Exam: Constitutional: No acute distress HEENT: EOMI, PERRLA Respiratory system: Decreased air entry bilaterally, no wheeze, no rhonchi, positive crackles bilaterally more on the left CVS: S1-S2 positive, no murmurs or gallops Abdomen: Soft, nontender, nondistended, positive bowel sounds x4 Extremities: +2 pulses bilaterally radialis/ dorsalis pedis, no cyanosis, no edema Neuro: Awake alert oriented x3 Psych: Normal mood and affect G/U: No Muller Skin: no rashes, warm and dry Lymphatic: no cervical or axillary lymphadenopathy Results & Data Results & Data ([facility]) Vital Signs (Past 12 Hours) Vital Signs Temp Pulse Pulse Resp BP Pulse Ox O2 Del Method 11/25/21 07:22 36.5 C 89 18 113/67 94 Room Air 11/25/21 07:21 93 H 11/25/21 03:01 36.6 C 90 18 127/71 95 Room Air 11/24/21 23:00 36.7 C 106 H 18 129/74 94 Room Air Laboratory Results 11/24/21 06:23 11/24/21 06:23 PG Care Time/CCT Total # of Minutes Spent Total Time Spent with Patient: Total time spent is greater than 50% in coordination of care (as documented) at patient's floor/unit and/or counseling patient: Coding Level of Care Code 32950 Subseq Hosp Care Lvl 2 Diagnoses Pleural effusion J90 Abnormal chest CT R93.89 Pulmonary nodule R91.1
[2021-11-25] MEDS ORDERED: DOXYCYCLINE HYCLATE 100 MG CAP PO STA (16:54)
[2021-11-25] MEDS ORDERED: AMOXICILLIN/CLAVULANATE 875 MG TAB PO ONE (16:54)
--- NOTE | 2021-11-25 17:03 | Discharge Summary ---
Discharge Summary Date of Service November 25, 2021 Notes For Next Care Provider Ensure symptoms are continuing to improve Restart Cellcept when appropriate Follow-up with real estate sales supervisor regarding this parapneumonic effusion which may have been SLE Repeat CT scan chest in 6 months + outpatient pulmonology followup with increased pulmonary nodule (carcinoid appearance per radiology interpretation) Medication Changes From Visit Medications started at discharge: Amoxicillin clavulanate 875-125 p.o. twice daily x7 days Doxycycline 100 mg p.o. twice daily x7 days Naproxen p.o. twice daily as needed pain Medications held at discharge: Mycophenolate Mofetil till 500 mg p.o. twice daily Admission HPI Per Admitting Provider History obtained from patient and records. Medical history significant for hypertension, valvular heart disease (mild MR/TR/AR on 2018 TTE ), SLE currently on CellCept, GERD, hypothyroidism migraine/fibromyalgia. Patient has had dry cough symptoms since January, when her housemates got COVID-19. Patient had a negative outpatient COVID-19 test. Patient completed COVID-19 vaccination. 2 months ago, patient noted pleuritic left-sided chest pain with dry cough symptoms and shortness of breath. Admits to coughing with meals/water intake which she attributes to tight esophagus which has been stretched before. Patient seen at PCP's office last month.. Abnormal dimer test prompted CT PE study CT chest showed minimal lung consolidation adjacent to left pleural effusion likely compressive atelectasis. 8.5 mm nodule anteromedial left upper lobe. Patient prescribed Levaquin and steroid course. Outpatient follow-up CT chest recommended after 3 months. Persistent respiratory symptoms despite compliance with antibiotic/steroid regimen. Patient unable to follow-up at PCPs office because she was busy moving into a new residence. [facility] ER visit 3 weeks ago for abdominal pain/diarrhea symptoms. Patient returned to ER for worsening shortness of breath and left-sided chest pain complaints. Zosyn administered at the ER. Medical History as above Surgical History : Dental surgery, cervix cryocautery, vascular procedures, tonsillectomy/adenoidectomy Family History : DM, heart disease, stroke Personal/Social history : Non-smoker, occasional EtOH intake, disabled Admission Exam Per Admitting Provider Physical Exam: GENERAL: slightly uncomfortable, anxious, no respiratory distress SKIN: Normal color, warm HEENT: Bespectacled, [place] palpebral conjunctivae, no ptosis, dry buccal mucosa NECK : Supple, no tenderness CHEST : Decreased breath sounds on the left, left chest wall tenderness tenderness HEART : Tachycardic, systolic murmur best heard over left sternal border ABDOMEN: Some distention, nontender EXTREMITIES : No LE swelling/tenderness, no other conspicuous deformities noted NEUROLOGIC : Coherent, no facial asymmetry, no other gross focality Principal Dx & Hospital Course #1 = Principal Diagnosis (1) Sepsis: (2) Pneumonia: (3) Parapneumonic effusion: (4) Systemic lupus erythematosus: (5) Pulmonary nodule: Plan 51-year-old female admitted for persistent left lateral chest pain after treatment for pneumonia. She is an immunocompromise patient currently on CellCept for history of lupus. She failed outpatient Levaquin treatment. She was started on Zosyn and doxycycline and admitted to medicine. White blood cell count was elevated at 12 with left shift, chemistry was within normal limits a side from a sodium of 135. Procalcitonin was negative. D-dimer was checked and was elevated. She underwent an chest CT with contrast with no evidence of central pulmonary embolus. Streak and motion compromised the examination. She was found to have a small left pleural effusion with dependent consolidation. There was also a 10 mm ovoid left upper lobe pulmonary nodule that has significantly increased in size dating back to 2009. A low-grade lesion such as carcinoid could have this appearance and nonemergent outpatient follow-up with pulmonology was recommended. Pulmonology was consulted and performed a thoracentesis at bedside on 11/24. Exudative fluid was obtained. Pleural fluid culture showed no growth. Blood cultures also were negative. It was noted that she was on mycophenolate [place] till for history of lupus and this was held in setting of infection. Although there were no cytopenias rashes or joint pain present, an active lupus flare cannot be excluded. A repeat CT scan in 6 months was recommended for her pulmonary nodule. An echocardiogram was performed revealing a normal ejection fraction of 65 to 70% with no gross valvular disease. At time of discharge she was improved and oxygenating well on room air. She was mentating and ambulating at baseline and tolerating p.o. Her chest pain had significantly improved after the tap and with current therapy including naproxen which will be given for short course as well as a course of antibiotics to continue in the outpatient setting. She was advised that she has been taken off CellCept while being treated for possible infection. She was advised to touch base with her real estate sales supervisor within the next week to discuss the appropriate time of when this should restart. She verbalized understanding with intent to comply. Discharge Exam CONSTITUTIONAL: WNWD, vitals as above, generally well-appearing EYES: normal conjuctivae, no scleral icterus ENT: external ear and nose normal, MMM NECK: trachea midline, MMM RESPIRATORY: decreased breath sounds at bilateral bases with mild crackles, no crackles, rales or wheezes, normal respiratory effort CARDIOVASCULAR: regular rate and rhythm, S1 and 2 heard without murmurs, gallops or rubs, no JVD, no peripheral edema CHEST: inspection of chest was normal GASTROINTESTINAL: soft, nontender, no hepatomegaly, no guarding MUSCULOSKELETAL: strength 5/5 throughout, head is normocephalic and atraumatic, neck supple, normal palpation of chest wall without tenderness SKIN: warm and dry NEUROLOGIC: CN 2-12 grossly intact, no sensory deficit, normal cognition, normal speech, no tremor PSYCHIATRIC: alert cooperative and oriented to person, place and time. Updated Medication List Medication Instructions Recorded Confirmed Type levothyroxine 75 mcg capsule 75 mg PO PM 01/08/18 11/23/21 History omeprazole 40 mg capsule,delayed 40 mg PO PM 01/08/18 11/23/21 History release albuterol sulfate 90 mcg/actuation 2 puff inhalation Q6 PRN Shortness 03/04/18 11/23/21 History aerosol inhaler Of Breath Or Wheezing cyclobenzaprine 10 mg tablet 20 mg PO HS 03/26/18 11/23/21 History amlodipine 2.5 mg tablet 2.5 mg PO PM 07/23/20 11/23/21 History levocetirizine 5 mg tablet (Xyzal) 5 mg PO PM PRN seasonal allergies 07/23/20 11/23/21 History trazodone 50 mg tablet 50 mg PO HS 07/23/20 11/23/21 History cyclobenzaprine 10 mg tablet 10 mg PO DAILY PRN muscle spasm 11/23/21 11/23/21 History lisinopril 40 mg tablet 40 mg PO DAILY 11/23/21 11/23/21 History loratadine 10 mg tablet (Claritin) 10 mg PO DAILY 11/23/21 11/23/21 History meclizine 12.5 mg tablet 12.5 mg PO TID PRN DIZZY 11/23/21 11/23/21 History medroxyprogesterone 150 mg/mL 150 mg IM .[id number] 11/23/21 11/23/21 History intramuscular syringe promethazine 12.5 mg tablet 12.5 mg PO Q6H PRN Nausea 11/23/21 11/23/21 History amoxicillin 875 mg-potassium 1 tab PO BID #14 tabs 11/25/21 Rx clavulanate 125 mg tablet doxycycline hyclate 100 mg capsule 100 mg PO BID #14 caps 11/25/21 Rx naproxen 250 mg tablet 250 mg PO BID #14 tabs 11/25/21 Rx Hospital Stay Data Consultations 11/23/21 22:09 ED Decision to Admit Stat 11/24/21 00:36 Consult Pulmonology Routine Diagnostic Imagining Performed 11/23/21 16:03 CT angio chest PE protocol Stat 11/24/21 14:40 US point of care ultrasound Urgent 11/24/21 15:02 US point of care ultrasound Routine Pending Results Patient Have Any Pending Studies at Discharge: No Discharge Instructions Given to Patient (Per Discharging Provider) Please take all medications as instructed on discharge as below. You have undergone a thoracentesis which revealed an exudative fluid in your lung. It is possible this is the results of a complication from a prior pneumonia or from lung inflammation related to lupus. The treatment will be an additional course of antibiotics now and naproxen twice daily until symptoms resolve. Please do not take naproxen for longer than 1 week without further consulting with your primary care provider. You have been taken off of CellCept while you are being treated for a possible infection. Please touch base with your real estate sales supervisor within the next week to discuss the appropriate time of when this should restart. Please follow-up with your primary care physician within 1 week of discharge from the hospital. This will be to touch base on how you are tolerating new medications and review the CellCept hold if you are unable to reach her real estate sales supervisor. Additionally, repeat chest imaging may need to be performed to ensure complete resolution of this parapneumonic effusion in 4 to 6 weeks. For any ongoing issues with swallowing please consult with GI as outpatient. Additional esophageal dilations may be needed. It was a pleasure taking care of you! Please call if you have any questions or problems. You can reach a [facility] hospitalist on duty at [facility] 24 hours a day by calling [phone]. Take care of yourself. Nadine Doll, [facility] Medical Centerist Total Time Total Time Spent Total Time Spent (In Minutes): 60
[2021-11-25] MEDS ORDERED: NAPROXEN 250 MG TAB PO SCH (21:00)
== END 2021-11-25 18:16 | disposition home or self-care (01) ==
LOC: ED 15:17 → INTOOBSV 11-24 00:21 → 2N 11-24 00:21